=== PATIENT | male | born 1980 | race Caucasian/White ===

== ENCOUNTER 2016-07-13 20:41 | Emergency (ER) | payer OTHER ==
[2016-07-13 20:52] VITALS: RESP 16
[2016-07-13 20:58] VITALS: TEMP 98.5
--- NOTE | 2016-07-13 21:11 | ED ---
General Adult HPI - General Chief complaint: ENT Stated complaint: Cough/Headache/Sore Throat Time Seen by Provider: 07/13/16 20:58 Source: patient, RN notes reviewed Mode of arrival: ambulatory Limitations: no limitations - History of Present Illness Initial comments: 36-year-old male presenting for sore throat. States symptoms began yesterday and persisted through today. He states he has had some chills but denies any fevers. He states he's had a dry cough but no shortness of breath. He does have a history of asthma but this is not flared up at this time. He denies any chest pain. He has not tried any medications. - Related Data Home Medications Medication Instructions Recorded Confirmed Acetaminophen Tab [Tylenol Tab] 650 mg PO Q6H PRN 07/13/16 07/13/16 DULoxetine HCL [Cymbalta] 60 mg PO DAILY 07/13/16 07/13/16 Ibuprofen [Motrin] 200 - 400 mg PO Q6HR PRN 07/13/16 07/13/16 Ondansetron HCl [Zofran] 4 mg PO Q8H PRN 07/13/16 07/13/16 Allergies Allergy/AdvReac Type Severity Reaction Status Date / Time erythromycin base Allergy Dyspnea Verified 07/13/16 21:11 [Erythromycin Base] Penicillins Allergy Dyspnea Verified 07/13/16 21:11 sulfamethoxazole Allergy Dyspnea Verified 07/13/16 21:11 [From Septra] trimethoprim [From Decra] Allergy Dyspnea Verified 07/13/16 21:11 Review of Systems ROS Statement: Those systems with pertinent positive or pertinent negative responses have been documented in the HPI. ROS Other: All systems not noted in ROS Statement are negative. Past Medical History Past Medical History: Asthma Additional Past Medical History / Comment(s): back pain, meningitis 5 months old History of Any Multi-Drug Resistant Organisms: None Reported Past Surgical History: Heart Catheterization, Orthopedic Surgery Additional Past Surgical History / Comment(s): heart cath, left thumb surgery Past Psychological History: ADD/ADHD, Bipolar Smoking Status: Former smoker Past Alcohol Use History: None Reported Past Drug Use History: None Reported General Exam - General Exam Comments Initial Comments: General: Awake and Alert. No acute distress. Does not appear acutely ill. Obese. Eyes: CLYDE, EOM intact. No nystagmus. No scleral icterus. HENT: Atraumatic, normocephalic. Mucous membranes moist. Trachea midline. Posterior pharyngeal erythema and ulceration, no significant exudate. Neck: The neck is supple, there is no tenderness or JVD. Cardiovascular: Regular rate and rhythm. No murmur, rub, or gallop is appreciated. Distal pulses intact. Respiratory: Lungs are clear to auscultation bilaterally. No wheezes, rales, rhonchi. No respiratory distress. Gastrointestinal: Soft, Nontender. No rebound or guarding. Non-distended. No masses or organomegaly noted. No CVA tenderness. Musculoskeletal: No tenderness. Normal ROM. No gross deformity. No strength deficits. Neurological: A&Ox3. CN II-XII grossly intact, There are no obvious motor or sensory deficits. Coordination appears grossly intact. Speech is normal. Skin: Skin is warm and dry and no rashes or lesions are noted. Psychiatric: Cooperative, appropriate mood & affect, normal judgment. Limitations: no limitations Course Vital Signs 07/13/16 20:50 Temperature 98.5 F Pulse Rate 76 Respiratory 16 Rate Blood Pressure 144/64 O2 Sat by Pulse 99 Oximetry Medical Decision Making - Medical Decision Making 36-year-old male presenting for sore throat and URI type symptoms. He does state history of asthma although he has no wheezing or respiratory distress exam requiring prevention at this time. Does have some pharyngeal erythema on exam. Strep was performed and negative. Patient was given a dose of Decadron for symptomatic management. Discussed [id number] medications for further symptomatic management. Recommend follow-up with PCP. Written for work note upon request. Patient otherwise appears stable for discharge at this time. Discussed concerning signs symptoms for immediate return to the ED. Patient and are agreeable with plan and discharge home. - Lab Data Lab Results 07/13/16 Range/Units 21:15 Group A Strep Rapid Negative (Negative) Disposition Clinical Impression: Sore throat Disposition: HOME SELF-CARE Condition: Stable Instructions: Pharyngitis (ED) Referrals: Jim Bella MD [Primary Care Provider] - 1-2 days Time of Disposition: 21:27
[2016-07-13] MEDS ORDERED: DEXAMETHASONE 4 MG TAB PO STA (21:26)
[2016-07-13 21:38] VITALS: BP 113/68; PULSE 79
== END 2016-07-13 21:38 | disposition home or self-care (01) ==
LOC: EC 20:41
DX: J02.9 Acute pharyngitis, unspecified (principal); E66.9 Obesity, unspecified; F90.9 Attention-deficit hyperactivity disorder, unspecified type; F31.9 Bipolar disorder, unspecified; Z87.891 Personal history of nicotine dependence; Z79.899 Other long term (current) drug therapy; Z88.0 Allergy status to penicillin; Z88.1 Allergy status to other antibiotic agents; Z88.2 Allergy status to sulfonamides; Z88.8 Allergy status to other drugs, medicaments and biological substances
CPT/HCPCS: 99283; 87081; 87430; J8540

== ENCOUNTER 2016-10-19 12:10 | Observation (INO) | payer OTHER ==
[2016-10-19] MEDS ORDERED: SODIUM CHLORIDE 0.9% 1,000 ML IV STA (13:00)
[2016-10-19] MEDS ORDERED: ASPIRIN 81 MG CHEW PO STA (13:00)
--- NOTE | 2016-10-19 13:30 | ED ---
Chest Pain HPI - General Chief Complaint: Chest Pain Stated Complaint: Chest Pain Time Seen by Provider: 10/19/16 12:23 Source: patient, RN notes reviewed Mode of arrival: wheelchair Limitations: no limitations - History of Present Illness Initial Comments: Patient is a 36-year-old male presents to the emergency room for evaluation of chest pain. Patient states pain began around 9 AM this morning. Patient states he noticed the pain when he was stacking foam. Patient states the pain is midsternal and radiates to his left arm. Patient states he had symptoms similar to this about 7 years ago. 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 Patient does state he went through a stress test while ago. Patient states he took Aleve this morning with no relief of symptoms. Patient states he is having 8 out of 10 chest pain. Patient states it feels it his 3 daughters are sitting on his chest. Patient does state he feels short of breath. Patient denies nausea or vomiting. Patient denies fevers or chills. Patient denies cough. Patient denies headache or dizziness. - Related Data Home Medications Medication Instructions Recorded Confirmed Acetaminophen Tab [Tylenol Tab] 1,000 mg PO Q6HR PRN 10/19/16 10/19/16 Naproxen Sodium [Aleve] 220 mg PO ONCE 10/19/16 10/19/16 Ranitidine HCl 150 mg PO BID 10/19/16 10/19/16 Allergies Allergy/AdvReac Type Severity Reaction Status Date / Time erythromycin base Allergy Dyspnea Verified 10/19/16 12:31 [Erythromycin Base] Penicillins Allergy Dyspnea Verified 10/19/16 12:31 sulfamethoxazole Allergy Dyspnea Verified 10/19/16 12:31 [From Septra] trimethoprim [From Septra] Allergy Dyspnea Verified 10/19/16 12:31 Review of Systems ROS Statement: Those systems with pertinent positive or pertinent negative responses have been documented in the HPI. ROS Other: All systems not noted in ROS Statement are negative. EKG Findings - EKG Comments: EKG Findings:: Normal sinus rhythm, ventricular rate 67 bpm, WA interval 160 ms , QRS duration 86 ms, QT/QTC 394/416 ms Past Medical History Past Medical History: Asthma Additional Past Medical History / Comment(s): back pain, meningitis 5 months old History of Any Multi-Drug Resistant Organisms: None Reported Past Surgical History: Heart Catheterization, Orthopedic Surgery Additional Past Surgical History / Comment(s): heart cath, left thumb surgery Past Psychological History: ADD/ADHD, Bipolar Smoking Status: Former smoker Past Alcohol Use History: None Reported Past Drug Use History: None Reported General Exam - General Exam Comments Initial Comments: Sitting in exam room, no distress. Limitations: no limitations General appearance: alert, in no apparent distress Head exam: Present: atraumatic, normocephalic, normal inspection Eye exam: Present: normal appearance ENT exam: Present: normal exam Neck exam: Present: normal inspection, full ROM. Absent: tenderness, lymphadenopathy Respiratory exam: Present: normal lung sounds bilaterally, respiratory distress Cardiovascular Exam: Present: regular rate, normal rhythm, normal heart sounds Extremities exam: Present: normal inspection Back exam: Present: normal inspection Neurological exam: Present: alert, oriented X3, CN II-XII intact, normal gait Psychiatric exam: Present: normal affect, normal mood Skin exam: Present: warm, dry, intact, normal color. Absent: rash Course Vital Signs 10/19/16 10/19/16 10/19/16 12:12 12:40 13:19 Temperature 97.8 F 98.4 F 98.3 F Pulse Rate 83 67 67 Respiratory 20 18 16 Rate Blood Pressure 111/72 118/64 113/59 O2 Sat by Pulse 98 96 98 Oximetry 10/19/16 10/19/16 10/19/16 14:22 15:54 17:06 Temperature 98.0 F 98.5 F Pulse Rate 67 62 66 Respiratory 16 16 16 Rate Blood Pressure 107/66 100/62 104/59 O2 Sat by Pulse 97 96 97 Oximetry Chest Pain [facility] Patient is a 36-year-old male presents to the emergency room for evaluation of chest pain. White count slightly elevated. Cardiac enzymes within normal limits. Patient will be admitted here for observation for repeat cardiac enzymes. Case discussed Dr. Lynn, Dr. Lynn discussed case with Dr. Acuna who agreed to admit patient. Disposition Clinical Impression: Chest pain Disposition: ADMITTED IP TO THIS [facility] Condition: Stable Decision Date: 10/19/16
[2016-10-19 13:34] LABS: Basophils # (A) 0.1 k/uL (0-0.2); Basophils % (A) 1 %; CH 29.6; CHCM 34.3; Eosinophils # (A) 4.2 k/uL (0-0.7); Eosinophils % (A) 26 %; HCT 45.1 % (39.0-53.0); HDW 2.42; HGB 16.1 gm/dL (13.0-17.5); Luc # (Auto) 0.27; Luc % (Auto) 2; Lymphocytes # (A) 2.4 k/uL (1.0-4.8); Lymphocytes % (A) 15 %; MCHC 35.8 g/dL (31.0-37.0); MCV 86.6 fL (80.0-100.0); Mean Platelet Volume 7.1; Monocytes # (A) 0.7 k/uL (0-1.0); Monocytes % (A) 4 %; Neutrophils # (A) 8.4 k/uL (1.3-7.7); Neutrophils % (A) 52 %; RDW 13.1 % (11.5-15.5); WBC 16.1 k/uL (3.8-10.6); WBC (Perox) 15.42
[2016-10-19 13:44] LABS: ALT 30 U/L (21-72); AST 26 U/L (17-59); Alkaline Phosphatase 85 U/L (38-126); Anion Gap 7 mmol/L; Blood Urea Nitrogen 18 mg/dL (9-20); Calcium 9.9 mg/dL (8.4-10.2); Carbon Dioxide 25 mmol/L (22-30); Chloride 108 mmol/L (98-107); Glucose 89 mg/dL (74-99); Non-African American GFR(MDRD) >60 (>60 ml/min/1.73 sqM); Potassium 5.1 mmol/L (3.5-5.1); Sodium 140 mmol/L (137-145); Total Bilirubin 0.7 mg/dL (0.2-1.3); Total Protein 7.4 g/dL (6.3-8.2)
[2016-10-19 13:45] LABS: Partial Thromboplastin Time 26.4 sec (22.0-30.0); Prothrombin Time 10.4 sec (9.0-12.0)
[2016-10-19 13:54] LABS: Creatine Kinase 228 U/L (55-170)
--- NOTE | 2016-10-19 13:56 | XR ---
EXAMINATION TYPE: XR chest 2V DATE OF EXAM: 10/19/2016 COMPARISON: 02/14/2016 TECHNIQUE: PA and lateral views submitted. HISTORY: Cough FINDINGS: The lungs are clear and there is no pneumothorax, pleural effusion, or focal pneumonia. Coarsened i nterstitium. IMPRESSION: 1. Coarsened interstitium could be on the basis of poor inspiration rather than bronchitis or interst itial pneumonitis. Correlate clinically.
[2016-10-19 14:08] LABS: Troponin I <0.012 ng/mL (0.000-0.034)
[2016-10-19 14:16] LABS: Manual Review Performed
[2016-10-19 14:17] LABS: RBC Morphology Normal
[2016-10-19 14:20] LABS: Creatine Kinase MB 3.2 ng/mL (0.0-2.4)
[2016-10-19] MEDS ORDERED: ACETAMINOPHEN TAB 325 MG TAB PO PRN (15:28)
[2016-10-19] MEDS ORDERED: NALOXONE 0.4 MG/ML 1 ML VIAL IV PRN (15:28)
[2016-10-19] MEDS ORDERED: ONDANSETRON 4 MG/2 ML VIAL IVP PRN (15:28)
[2016-10-19] MEDS: SODIUM CHLORIDE 0.9% 1,000 ML IV SCH (15:51)
[2016-10-19 18:18] VITALS: BMI 32.5
[2016-10-19] MEDS: MORPHINE SULFATE 4 MG/ML SYRINGE IV PRN ×2 (18:42→22:44)
[2016-10-19 19:47] LABS: Creatine Kinase 183 U/L (55-170)
[2016-10-19 20:00] LABS: Troponin I <0.012 ng/mL (0.000-0.034)
[2016-10-19] MEDS: IBUPROFEN 400 MG TAB PO PRN (20:05)
[2016-10-19] MEDS: FAMOTIDINE 20 MG TAB PO SCH (20:05)
[2016-10-19 20:11] LABS: Creatine Kinase MB 2.8 ng/mL (0.0-2.4)
[2016-10-19] MEDS ORDERED: TEMAZEPAM 15 MG CAP PO PRN (23:11)
[2016-10-19] MEDS ORDERED: ALPRAZolam 0.25 MG TAB PO PRN (23:11)
[2016-10-20] MEDS ORDERED: HYDROcodone/APAP 5-325MG 1 EACH TAB PO PRN (00:21)
[2016-10-20] MEDS ORDERED: LORazepam 1 MG TAB PO PRN (00:21)
[2016-10-20 01:38] LABS: Creatine Kinase 147 U/L (55-170)
[2016-10-20 01:51] LABS: Creatine Kinase MB 2.4 ng/mL (0.0-2.4); Troponin I <0.012 ng/mL (0.000-0.034)
[2016-10-20 03:51] VITALS: RESP 16
[2016-10-20] MEDS: SODIUM CHLORIDE 0.9% 1,000 ML IV SCH (05:46)
[2016-10-20 06:06] LABS: Creatine Kinase 119 U/L (55-170)
[2016-10-20 06:19] LABS: Creatine Kinase MB 1.8 ng/mL (0.0-2.4); Troponin I <0.012 ng/mL (0.000-0.034)
[2016-10-20] MEDS: IBUPROFEN 400 MG TAB PO PRN (06:59)
[2016-10-20] MEDS ORDERED: DOBUTamine DRIP for NUC MED 500 MG in DEXTROSE/WATER 1 250ML.BAG IV ONE (07:17)
[2016-10-20] MEDS ORDERED: PANTOPRAZOLE 40 MG TABLET PO SCH (07:30)
[2016-10-20] MEDS ORDERED: ASPIRIN 81 MG CHEW PO SCH (09:00)
--- NOTE | 2016-10-20 10:38 | ECHOF ---
Referral Reason: MEASUREMENTS -------- HEIGHT: 180.3 cm WEIGHT: 108.9 kg BP: 120/58 IVSd: 1.3 cm (0.6 - 1.1) LVIDd: 4.0 cm (3.9 - 5.3) LVPWd: 1.2 cm (0.6 - 1.1) IVSs: 2.0 cm LVIDs: 2.3 cm LVPWs: 2.1 cm Ao Diam: 3.3 cm (2.0 - 3.7) AV Cusp: 2.4 cm (1.5 - 2.6) LA Diam: 3.3 cm (2.7 - 3.8) MV EXCURSION: 12.842 mm (> 18.000) MV EF SLOPE: 122 mm/s (70 - 150) EPSS: 0.3 cm MV E Maynor: 0.86 m/s MV DecT: 188 ms MV A Maynor: 0.56 m/s MV E/A Ratio: 1.53 RAP: 5.00 mmHg RVSP: 27.07 mmHg FINDINGS -------- Sinus rhythm. This was a technically good study. There is mild concentric left ventricular hypertrophy. Overall left ventricular systolic function is normal with, an EF between 55 - 60 %. The right ventricle is normal in size and function. The left atrium is normal in size. The right atrium is normal in size. The aortic valve is trileaflet, and appears structurally normal. No aortic stenosis or regurgitation. Mild mitral regurgitation is present. Trace tricuspid regurgitation present. The right ventricular systolic pressure, as measured by Doppler, is 27.07mmHg. Pulmonic valve appears structurally normal. The aortic root size is normal. The pericardium is normal. CONCLUSIONS -------- 1. Sinus rhythm. 2. Trace tricuspid regurgitation present. 3. The right ventricular systolic pressure, as measured by Doppler, is 27.07mmHg. 4. Pulmonic valve appears structurally normal. 5. The aortic root size is normal. 6. The pericardium is normal. 7. This was a technically good study. 8. There is mild concentric left ventricular hypertrophy. 9. Overall left ventricular systolic function is normal with, an EF between 55 - 60 %. 10. The right ventricle is normal in size and function. 11. The left atrium is normal in size. 12. The right atrium is normal in size. 13. The aortic valve is trileaflet, and appears structurally normal. No aortic stenosis or regurgitation. 14. Mild mitral regurgitation is present. [employer]: Hansa Adkins RDCS
[2016-10-20 11:30] VITALS: BP 111/66; TEMP 98.7
--- NOTE | 2016-10-20 11:43 | HP ---
DATE OF ADMISSION: DATE OF SERVICE: 10/19/2016 CHIEF COMPLAINT: Chest pain. 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 The pain was felt in the mid part of the chest, which was coming and going with pressure type of sensation. The pain is radiating to left arm and the patient came to [facility] and admitted for further evaluation and treatment. There is no history of fever, rigors, headache, loss of consciousness. The patient also reports significant social stressors with multiple deaths in the family and other medical issues. There is no associated fever, rigors, chills. No history of hematochezia, melena at this time. PAST MEDICAL HISTORY: History of asthma, back pain, spinal meningitis, ADD, ADHD, bipolar, history of cardiac catheterization reported normal elsewhere. Home medications are 1. Ranitidine 150 mg p.o. b.i.d. 2. Tylenol 1000 mg q.6 p.r.n. 3. Aleve 220 mg daily. ALLERGIES: ERYTHROMYCIN, PENICILLIN AND SEPTRA. FAMILY HISTORY: History of heart disease in multiple relatives including grandfather and stepfather. SOCIAL HISTORY: Previous history of smoking. No history of current alcohol or smoking. REVIEW OF SYSTEMS: ENT: No diminishing hearing. No diminished vision. CARDIOVASCULAR: As mentioned earlier. RESPIRATORY: As mentioned earlier. GI: No nausea. : No dysuria. NERVOUS SYSTEM: No numbness or weakness. ALLERGY/IMMUNOLOGY: No asthma or hayfever. MUSCULOSKELETAL: As mentioned earlier. HEMATOLOGY/ONCOLOGY: No history of anemia. ENDOCRINE: No history of diabetes or hypothyroidism. CONSTITUTIONAL: As mentioned earlier. DERMATOLOGY: Negative. RHEUMATOLOGY: Negative. PSYCHIATRY: As mentioned earlier. PHYSICAL EXAMINATION: Patient is alert and oriented x3. Pulse is 72, blood pressure 140/80, respirations 18, temperature 98.1. Pulse ox 95% on room air. HEENT: Conjunctivae normal. NECK: No jugular venous distention. CARDIOVASCULAR: S1 and S2, muffled. RESPIRATORY: Breath sounds diminished at the bases. No rhonchi, no crackles. ABDOMEN: Soft, nontender. No mass palpable. LEGS: No edema, no swelling. NERVOUS SYSTEM: Higher function as mentioned. Moves all four limbs. No focal motor deficits. LYMPHATIC: No lymphadenopathy in the neck, axillae or groin. SKIN: No ulcer, rash or bleeding. JOINTS: No active deforming arthropathy. LABS: WBC 16.1, chloride 108, creatine kinase 228. Troponins are negative. ASSESSMENT: 1. Chest pain, possible unstable angina. 2. Increased WBC of undetermined origin. 3. Increased creatine kinase with normal troponins. 4. History of asthma. 5. History of back pain. 6. History of spinal meningitis since 5 months. 7. History of cardiac catheterization, normal. 8. History of attention deficit disorder, attention deficit hyperactivity disorder. 9. History of bipolar. 10. Remote history of nicotine dependence. RECOMMENDATIONS AND DISCUSSION: In this 36-year-old gentleman who presented with multiple complex medical issues, we will monitor the patient closely. Continue the current medication and symptomatic treatment. continue unstable angina protocol. Otherwise cardiology consultation. N.p.o. past midnight. Other than that I would also recommend repeat labs in the morning. Symptomatic treatment provided. Guarded prognosis because of multiple complex medical issues. Further recommendations to follow.
[2016-10-20 12:11] VITALS: PULSE 48
[2016-10-20] MEDS: FAMOTIDINE 20 MG TAB PO SCH (12:30)
--- NOTE | 2016-10-20 12:42 | CONS ---
DATE OF CONSULTATION: ATTENDING: Dr. Bella Mr. Paredes is a 36-year-old male who presented with symptoms of chest discomfort. Patient underwent cardiac catheterization according to him about 7 years ago at [facility] and was told that there is no obstructive disease. There was a questionable segmental wall motion biopsy, although I am not clear about that. Yesterday, after having coffee, he had substernal chest discomfort that persisted for a few hours until he came into the emergency room. At time of my evaluation, he is pain free. Patient is average in his exercise tolerance. He denies any symptoms of exertional chest discomfort. He has dyspnea related to his bronchial asthma. He denies any dizziness or palpitation. Yesterday, he felt more dyspneic. He has history of diaphoresis on a regular basis. He has no PND, orthopnea, or peripheral edema. His coronary risk factors are negative for diabetes, hyperlipidemia, or smoking. He was on blood pressure medication in the past that was stopped and it appears that it was started because of arrhythmia but details are not available. REVIEW OF SYSTEMS: RESPIRATORY SYSTEM: He has history of bronchial asthma. No recent wheezing, cough. GI SYSTEM: No recent GI bleeding. No peptic ulcer disease. SYSTEM: Prior history of nephrolithiasis. NERVOUS SYSTEM: Remote history of seizure. PHYSICAL EXAMINATION: A 36-year-old male, alert, oriented, in no apparent distress. Blood pressure 114/80 with a heart in the 70s. HEAD: Normocephalic. EYES: Sclerae anicteric. NECK: Good upstroke. No bruit. No jugular venous distention. LUNGS: Clear to auscultation. HEART: Regular rate and rhythm. S1, S2, no S3, no S4, no murmur or rub. Chest wall with mild chest wall tenderness. ABDOMEN: Soft, obese, nontender, positive bowel sounds. No organomegaly. EXTREMITIES: No edema. Intact distal pulses. Lab data revealed a d-dimer of less than 0.17. Hemoglobin of 16.1. Troponin less than 0.012 for 4 samples. BUN and creatinine 18 and 0.88. Potassium 5.1. EKG revealed sinus mechanism, normal axis and intervals, no acute changes. A chest x-ray revealed no clear infiltrate. IMPRESSION: 1. Chest discomfort, has atypical feature for ischemic heart disease, probable noncardiac. 2. Prior history of bronchial asthma. RECOMMENDATIONS: From the cardiac standpoint, I will recommend to proceed with stress dobutamine echo and depending on those findings, further recommendation will be made. Thank you for this consult. We will follow with you.
--- NOTE | 2016-10-20 13:07 | ECHOS ---
DATE OF SERVICE: 10/20/2016 AGE: 36Y SEX: M HT: 72" WT: 240 lbs. Protocol Henry: Others: Stage: Dur. of Exercise: 8:30 minutes *Heart Rate Blood Pressure *Rest: 48 Rest: 139/60 * *Max. Achieved: 160 Maximum BP: 182/71 85% PMHR: 156 100% PMHR: 183 *METS: INDICATIONS: Chest pain. MEDICATIONS: See list. Patient was given dobutamine infusion according to the standard protocol. Peak heart rate of 160 was achieved. Maximum blood pressure of 169/72 millimeters of mercury was noted. Resting EKG shows normal sinus rhythm with normal FL interval and QRS duration and normal ST-T waves. With Dobutamine infusion, occasional PVCs and ventricular couplets and one episode of nonsustained ventricular tachycardia was noted without associated with any symptoms. Baseline echocardiographic images reveals a normal left ventricular chamber size with normal left ventricular systolic function. At the peak dose of dobutamine infusion, normal increase in the wall thickness and contractility is noted. FINAL IMPRESSION: 1. This dobutamine stress echocardiographic study is negative for stress-induced ischemia. 2. EKG portion of the stress test is not suggestive of ischemia. 3. Occasional PVCs and one episode of nonsustained ventricular tachycardia was noted due to dobutamine.
--- NOTE | 2016-10-21 10:27 | DS ---
DATE OF ADMISSION: 10/19/2016 DATE OF DISCHARGE: 10/20/2016 FINAL DIAGNOSES: 1. Chest pain, possible musculoskeletal with negative stress echo. 2. Increased WBC of undetermined etiology. 3. Increased creatinine kinase, normal Troponins. 4. History of asthma. 5. History of back pain. 6. History of spinal meningitis at the age of 5 months. 7. History of cardiac catheterization, normal previously. 8. History of attention deficit disorder/attention deficit hyperactivity disorder. 9. History of bipolar. 10. Remote history of nicotine dependence. DISCHARGE DISPOSITION: The patient will be discharged in stable condition with guarded prognosis. HISTORY OF PRESENT ILLNESS: This 36 -year-old gentleman with a past medical history of multiple medical problems as mentioned earlier presented with chest pain, myocardial infarction ruled out. Cardiology saw the patient. Stress test was done, which showed occasional PVCs but dobutamine stress echo was negative for any stress-induced ischemia. Cardiology cleared the patient for discharged. A 2-D echo was also done, which showed ejection fraction about 55 to 60%. On exam, vital signs stable. Abdomen soft. CARDIOVASCULAR: S1, S2. Central nervous system: No focal deficits. DISCHARGE ADVICE AND MEDICATIONS: 1. Diet is cardiac. 2. Activity limited until follow-up. 3. Follow up with primary physician in 2 to 3 days. 4. Follow-up with Dr. Banerjee in one week. MEDICATIONS: 1. Tylenol 1000 mg q.6 p.r.n. 2. Ativan 0.5 mg p.o. t.i.d. p.r.n. 3. Ranitidine 150 mg p.o. b.i.d. Once again, the patient will be discharged in stable condition with guarded prognosis.
== END 2016-10-20 15:15 | disposition home or self-care (01) ==
LOC: EC 12:10 → 3OBS 15:27
PROVIDERS: ADMIT Hospitalist; ATTEND Hospitalist
DX: R07.9 Chest pain, unspecified (principal); J45.909 Unspecified asthma, uncomplicated; M54.9 Dorsalgia, unspecified; Z86.61 Personal history of infections of the central nervous system; F90.9 Attention-deficit hyperactivity disorder, unspecified type; Z88.1 Allergy status to other antibiotic agents; Z88.0 Allergy status to penicillin; Z88.2 Allergy status to sulfonamides; Z88.8 Allergy status to other drugs, medicaments and biological substances; Z87.891 Personal history of nicotine dependence; Z82.49 Family history of ischemic heart disease and other diseases of the circulatory system
CPT/HCPCS: 96361 ×4; 99285 ×2; 96365; 96366; 36415; 93005; 93017; 93306; 93350; 85379; 83880; 80053; 82550 ×2; 82553 ×2; 83735; 84484 ×2; 85025; 85610; 85730; 71020; G0378 ×2; J1250; J2270

== ENCOUNTER 2017-02-13 06:46 | Emergency (ER) | payer OTHER ==
[2017-02-13 06:51] VITALS: TEMP 98.3
[2017-02-13] MEDS ORDERED: SODIUM CHLORIDE 0.9% 1,000 ML IV STA ×2 (07:19)
[2017-02-13] MEDS ORDERED: KETOROLAC 30 MG/ML 1 ML VIAL IVP STA ×2 (07:19→11:34)
--- NOTE | 2017-02-13 07:22 | ED ---
General Adult HPI - General Chief complaint: Abdominal Pain Stated complaint: kidney stone Time Seen by Provider: 02/13/17 07:13 Source: patient, family, RN notes reviewed, old records reviewed Mode of arrival: ambulatory Limitations: no limitations - History of Present Illness Initial comments: 36-year-old male presents with right flank pain and bowel pain. Dull aching pain. Severe nature. Patient states the pain does travel in his penis. Denies dysuria. States he has had decreased urine output and difficulty urinating, as well as dysuria. Denies any concern for STDs. Last bowel movement was this morning, mild diarrhea. No blood. Pain has been constant over 2 days, worsening. No vomiting or nausea. No fever. No chest pain or shortness of breath. Past medical history of renal stones. - Related Data Home Medications Medication Instructions Recorded Confirmed Acetaminophen Tab [Tylenol] 1,000 mg PO Q6HR PRN 10/19/16 02/13/17 Ranitidine HCl 150 mg PO BID PRN 10/19/16 02/13/17 Previous Rx's Medication Instructions Recorded Ibuprofen [Motrin] 600 mg PO Q8HR PRN #24 tab 02/13/17 Allergies Allergy/AdvReac Type Severity Reaction Status Date / Time erythromycin base Allergy Dyspnea Verified 02/13/17 08:09 [Erythromycin Base] Penicillins Allergy Dyspnea Verified 02/13/17 08:09 sulfamethoxazole Allergy Dyspnea Verified 02/13/17 08:09 [From Septra] trimethoprim [From Septra] Allergy Dyspnea Verified 02/13/17 08:09 Review of Systems ROS Statement: Those systems with pertinent positive or pertinent negative responses have been documented in the HPI. ROS Other: All systems not noted in ROS Statement are negative. Past Medical History Past Medical History: Asthma Additional Past Medical History / Comment(s): back pain, meningitis as History of Any Multi-Drug Resistant Organisms: None Reported Past Surgical History: Heart Catheterization, Orthopedic Surgery Additional Past Surgical History / Comment(s): heart cath no stents, left thumb surgery Past Psychological History: ADD/ADHD, Bipolar Smoking Status: Former smoker Past Alcohol Use History: None Reported Past Drug Use History: None Reported General Exam Limitations: no limitations General appearance: alert, in no apparent distress Head exam: Present: atraumatic, normocephalic Eye exam: Present: normal appearance, PERRL ENT exam: Present: normal exam Neck exam: Present: normal inspection Respiratory exam: Present: normal lung sounds bilaterally. Absent: respiratory distress Cardiovascular Exam: Present: regular rate, normal rhythm GI/Abdominal exam: Present: soft, tenderness (Mild right lower quadrant tenderness to palpation). Absent: distended, guarding, rebound exam: Present: normal inspection. Absent: testicular tenderness, scrotal swelling Extremities exam: Present: normal inspection, normal capillary refill. Absent: pedal edema Back exam: Present: normal inspection, CVA tenderness (R) Neurological exam: Present: alert, oriented X3. Absent: motor sensory deficit Psychiatric exam: Present: normal affect, normal mood Skin exam: Present: warm, dry, intact. Absent: cyanosis, diaphoretic Course Vital Signs 02/13/17 06:47 Temperature 98.3 F Pulse Rate 80 Respiratory 78 H Rate Blood Pressure 136/70 O2 Sat by Pulse 99 Oximetry - Reevaluation(s) Reevaluation #1: 02/13/17 08:44 On reevaluation, patient is feeling much better. Medical Decision Making - Medical Decision Making 36-year-old male presenting with difficulty urination, flank pain. CT is obtained, does show nonobstructing stone in the right pelvic kidney, as well as a stone in the distal urethra. Patient has distal meatal stricture. Case is discussed with urology Dr. Vasquez, he was able to evaluate the patient in the emergency department. Stone was removed. Patient is instructed to follow-up with urology in the next 2 weeks. Diagnosis: Distal urethral renal stone, urethral stricture. - Lab Data Result diagrams: 02/13/17 07:29 02/13/17 07:29 Lab Results 02/13/17 02/13/17 02/13/17 Range/Units 07:29 07:29 07:29 WBC 9.1 (3.8-10.6) k/uL RBC 5.31 (4.30-5.90) m/uL Hgb 15.7 (13.0-17.5) gm/dL Hct 47.6 (39.0-53.0) % MCV 89.6 (80.0-100.0) fL MCH 29.5 (25.0-35.0) pg MCHC 32.9 (31.0-37.0) g/dL RDW 12.7 (11.5-15.5) % Plt Count 242 (150-450) k/uL Neutrophils % 53 % Lymphocytes % 26 % Monocytes % 8 % Eosinophils % 9 % Basophils % 1 % Neutrophils # 4.9 (1.3-7.7) k/uL Lymphocytes # 2.4 (1.0-4.8) k/uL Monocytes # 0.7 (0-1.0) k/uL Eosinophils # 0.8 H (0-0.7) k/uL Basophils # 0.1 (0-0.2) k/uL Sodium 140 (137-145) mmol/L Potassium 4.4 (3.5-5.1) mmol/L Chloride 108 H (98-107) mmol/L Carbon Dioxide 22 (22-30) mmol/L Anion Gap 10 mmol/L BUN 16 (9-20) mg/dL Creatinine 0.82 (0.66-1.25) mg/dL Est GFR (MDRD) Af Amer >60 (>60 ml/min/1.73 sqM) Est GFR (MDRD) Non-Af >60 (>60 ml/min/1.73 sqM) Glucose 108 H (74-99) mg/dL Plasma Lactic Acid Louis 0.9 (0.7-2.0) mmol/L Calcium 9.3 (8.4-10.2) mg/dL Total Bilirubin 0.3 (0.2-1.3) mg/dL AST 29 (17-59) U/L ALT 31 (21-72) U/L Alkaline Phosphatase 75 (38-126) U/L Total Protein 6.8 (6.3-8.2) g/dL Albumin 3.9 (3.5-5.0) g/dL Amylase 40 (30-110) U/L Lipase 108 (23-300) U/L Urine Color Urine Appearance (Clear) Urine pH (5.0-8.0) Ur Specific [place] (1.001-1.035) Urine Protein (Negative) Urine Glucose (UA) (Negative) Urine Ketones (Negative) Urine Blood (Negative) Urine Nitrite (Negative) Urine Bilirubin (Negative) Urine Urobilinogen (<2.0) mg/dL Ur Leukocyte Esterase (Negative) Urine RBC (0-5) /hpf Urine WBC (0-5) /hpf Ur Squamous Epith Cells (0-4) /hpf Urine Mucus (None) /hpf 02/13/17 Range/Units 07:35 WBC (3.8-10.6) k/uL RBC (4.30-5.90) m/uL Hgb (13.0-17.5) gm/dL Hct (39.0-53.0) % MCV (80.0-100.0) fL MCH (25.0-35.0) pg MCHC (31.0-37.0) g/dL RDW (11.5-15.5) % Plt Count (150-450) k/uL Neutrophils % % Lymphocytes % % Monocytes % % Eosinophils % % Basophils % % Neutrophils # (1.3-7.7) k/uL Lymphocytes # (1.0-4.8) k/uL Monocytes # (0-1.0) k/uL Eosinophils # (0-0.7) k/uL Basophils # (0-0.2) k/uL Sodium (137-145) mmol/L Potassium (3.5-5.1) mmol/L Chloride (98-107) mmol/L Carbon Dioxide (22-30) mmol/L Anion Gap mmol/L BUN (9-20) mg/dL Creatinine (0.66-1.25) mg/dL Est GFR (MDRD) Af Amer (>60 ml/min/1.73 sqM) Est GFR (MDRD) Non-Af (>60 ml/min/1.73 sqM) Glucose (74-99) mg/dL Plasma Lactic Acid Louis (0.7-2.0) mmol/L Calcium (8.4-10.2) mg/dL Total Bilirubin (0.2-1.3) mg/dL AST (17-59) U/L ALT (21-72) U/L Alkaline Phosphatase (38-126) U/L Total Protein (6.3-8.2) g/dL Albumin (3.5-5.0) g/dL Amylase (30-110) U/L Lipase (23-300) U/L Urine Color Yellow Urine Appearance Clear (Clear) Urine pH 7.0 (5.0-8.0) Ur Specific [place] 1.014 (1.001-1.035) Urine Protein Negative (Negative) Urine Glucose (UA) Negative (Negative) Urine Ketones Negative (Negative) Urine Blood Negative (Negative) Urine Nitrite Negative (Negative) Urine Bilirubin Negative (Negative) Urine Urobilinogen <2.0 (<2.0) mg/dL Ur Leukocyte Esterase Small H (Negative) Urine RBC 2 (0-5) /hpf Urine WBC 6 H (0-5) /hpf Ur Squamous Epith Cells <1 (0-4) /hpf Urine Mucus Rare H (None) /hpf Disposition Clinical Impression: Urethral stricture, Renal stone Disposition: HOME SELF-CARE Condition: Good Instructions: Kidney Stones (ED) Additional Instructions: Please follow-up with Dr. Vasquez in 2 weeks Prescriptions: Ibuprofen [Motrin] 600 mg PO Q8HR PRN #24 tab PRN Reason: Pain Referrals: Jim Bella MD [Primary Care Provider] - 1-2 days Portillo Vasquez MD [STAFF PHYSICIAN] - 1-2 days Time of Disposition: 13:02
[2017-02-13 07:42] LABS: Basophils # (A) 0.1 k/uL (0-0.2); Basophils % (A) 1 %; CH 29.6; CHCM 33.2; Eosinophils # (A) 0.8 k/uL (0-0.7); Eosinophils % (A) 9 %; HCT 47.6 % (39.0-53.0); HDW 2.33; HGB 15.7 gm/dL (13.0-17.5); Luc # (Auto) 0.26; Luc % (Auto) 3; Lymphocytes # (A) 2.4 k/uL (1.0-4.8); Lymphocytes % (A) 26 %; MCH 29.5 pg (25.0-35.0); MCHC 32.9 g/dL (31.0-37.0); MCV 89.6 fL (80.0-100.0); Monocytes # (A) 0.7 k/uL (0-1.0); Monocytes % (A) 8 %; Neutrophils # (A) 4.9 k/uL (1.3-7.7); Neutrophils % (A) 53 %; RBC 5.31 m/uL (4.30-5.90); RDW 12.7 % (11.5-15.5); WBC 9.1 k/uL (3.8-10.6); WBC (Perox) 8.32
[2017-02-13 07:51] LABS: Appearance,Urine Clear (Clear); Bilirubin,Urine Negative (Negative); Glucose,Urine (UA) Negative (Negative); Ketones,Urine Negative (Negative); Leukocyte Esterase,Urine Small (Negative); Mucus,Urine Rare /hpf; Nitrite,Urine Negative (Negative); Particle Count 2659; Protein,Urine Negative (Negative); RBC,Urine 2 /hpf (0-5); Specific Gravity,Urine 1.014 (1.001-1.035); Squamous Epithelial Cell,Urine <1 /hpf (0-4); UA Billing (MACRO vs. MICRO) MICRO; Urobilinogen,Urine <2.0 mg/dL (<2.0); WBC,Urine 6 /hpf (0-5)
[2017-02-13 07:55] LABS: ALT 31 U/L (21-72); AST 29 U/L (17-59); Alkaline Phosphatase 75 U/L (38-126); Amylase 40 U/L (30-110); Anion Gap 10 mmol/L; Blood Urea Nitrogen 16 mg/dL (9-20); Calcium 9.3 mg/dL (8.4-10.2); Carbon Dioxide 22 mmol/L (22-30); Chloride 108 mmol/L (98-107); Glucose 108 mg/dL (74-99); Non-African American GFR(MDRD) >60 (>60 ml/min/1.73 sqM); Potassium 4.4 mmol/L (3.5-5.1); Sodium 140 mmol/L (137-145); Total Bilirubin 0.3 mg/dL (0.2-1.3); Total Protein 6.8 g/dL (6.3-8.2)
--- NOTE | 2017-02-13 08:14 | CT ---
EXAMINATION TYPE: CT abdomen pelvis wo con DATE OF EXAM: 02/13/2017 COMPARISON: CT thorax dated 04/25/[address] abdomen pelvis dated 06/14/2014 HISTORY: Right flank pain CT DLP: 789 mGycm Automated exposure control for dose reduction was used. TECHNIQUE: Helical acquisition of images was performed from the lung bases through the pelvis. FINDINGS: Lack of intravenous and oral contrast limits evaluation of both the hollow and solid viscer a. LUNG BASES: A 4 mm noncalcified right middle pulmonary nodule is stable dating back to 04/25/2013 and should be considered benign. Minimal bibasilar subsegmental dependent atelectasis is present LIVER/GB: The liver has a normal unenhanced morphology. No evidence of hepatic steatosis on the curre nt exam as suggested on a prior exam. Gallbladder is contracted. PANCREAS: Unremarkable unenhanced morphology with no ductal dilatation. SPLEEN: Small splenule is seen adjacent to the solomon spleen. Spleen is nonenlarged.. ADRENALS: Adrenal glands are within normal limits, symmetric bilaterally maintaining their normal adr eniform shape. KIDNEYS: 3 mm nonobstructing right upper pole renal calculus is present. No nephrolithiasis is seen o n the left. No hydronephrosis of either collecting system. No ureteral calculi are seen. No obstructi ve uropathy. No perinephric fat stranding. Urinary bladder is incompletely distended but unremarkable with small urachal remnant present. FREE AIR: No free air is visualized ADENOPATHY: No greater than 1 cm lymph nodes are seen within the abdomen or pelvis. OSSEOUS STRUCTURES: Osseous structures are intact. BOWEL: Appendix is within normal limits of size, retrocecal, and partially air-filled measuring up t o 4 mm. Few scattered diverticula are present within the sigmoid colon without pericolonic fat strand ing. Mild pericolonic fat stranding is seen in the ascending colon without thickening of the lateral conal fascia or bowel wall thickening. No pneumatosis is seen. IMPRESSION: 1. MILD PERICOLONIC FAT STRANDING IN THE ASCENDING COLON SUGGESTIVE OF MILD UNCOMPLICATED COLITIS. 2. NONOBSTRUCTING RIGHT UPPER POLE 3 MM RENAL CALCULUS. NO EVIDENCE OF OBSTRUCTIVE UROPATHY. 3. SIGMOID DIVERTICULOSIS WITHOUT EVIDENCE OF DIVERTICULITIS.
[2017-02-13] MEDS: MORPHINE SULFATE 2 MG/ML SYRINGE IVP STA ×2 (09:15→09:16)
[2017-02-13] MEDS ORDERED: HYDROcodone/APAP 5-325MG 1 EACH TAB PO STA (09:18)
[2017-02-13] MEDS ORDERED: LIDOCAINE URO-JET JELLY 2% 5 ML KIT URETHRAL ONE (09:50)
[2017-02-13] MEDS ORDERED: HYDROmorphone 1 MG/ML 1 ML SYRINGE IVP STA (12:33)
[2017-02-13 13:13] VITALS: BP 119/62; PULSE 55; RESP 17
--- NOTE | 2017-02-13 19:48 | P.PCN ---
Date of Procedure: 02/13/17 Preoperative Diagnosis: Meatal stenosis, urethral calculus Postoperative Diagnosis: Same Procedure(s) Performed: Meatotomy with removal of urethral calculus Anesthesia: local Surgeon: Portillo Vasquez Estimated Blood Loss (ml): 0 Pathology: other (Urethral calculus, sent for chemical analysis) Condition: stable Disposition: PACU Indications for Procedure: The patient is a 36-year-old white male with a history of urolithiasis. He presents with difficulty voiding, and has been diagnosed with a urethral calculus impacted at the fossa navicularis. On examination, there is evidence of meatal stenosis. Operative Findings: Meatal stenosis. Urethral calculus. Description of Procedure: The patient is lying supine. The external genitalia was prepped and draped sterilely. 2% lidocaine was injected within the ventral aspect of the urethral meatus. Tenotomy scissors then used to incise the ventral aspect of the urethral meatus in the midline. This results in a meatus of normal caliber. It is then possible to pass a hemostat into the urethra and grasp the urethral calculus, which was then removed. The patient tolerated the procedure well.
--- NOTE | 2017-02-13 19:52 | P.GSCN ---
History of Present Illness Consult date: 02/13/17 Reason for Consult: Urethral Calculus Requesting physician: Vickey Blackburn History of present illness: The patient is a 36-year-old white male with a history of urolithiasis. He has undergone ESWL on at least 1 occasion in the past. He has recently experienced hematuria and right flank discomfort. For the past 2 weeks, he has experienced dysuria and a diminished urinary stream. He presented to the emergency room. A computed tomography scan has identified a calculus within the urethra at the level of the fossa navicularis. Review of Systems - Constitutional Denies chills, Denies fever - Gastrointestinal Denies nausea, Denies vomiting - Genitourinary Reports dysuria, Reports hematuria Past Medical History Past Medical History: Asthma Additional Past Medical History / Comment(s): back pain, meningitis as infant History of Any Multi-Drug Resistant Organisms: None Reported Past Surgical History: Heart Catheterization, Orthopedic Surgery Additional Past Surgical History / Comment(s): heart cath no stents, left thumb surgery, ESWL Past Psychological History: ADD/ADHD, Bipolar Smoking Status: Former smoker Past Alcohol Use History: None Reported Past Drug Use History: None Reported Medications and Allergies Home Medications Medication Instructions Recorded Confirmed Type Acetaminophen Tab [Tylenol] 1,000 mg PO Q6HR PRN 10/19/16 02/13/17 History Ranitidine HCl 150 mg PO BID PRN 10/19/16 02/13/17 History Ibuprofen [Motrin] 600 mg PO Q8HR PRN #24 tab 02/13/17 Rx Allergies Allergy/AdvReac Type Severity Reaction Status Date / Time erythromycin base Allergy Dyspnea Verified 02/13/17 08:09 [Erythromycin Base] Penicillins Allergy Dyspnea Verified 02/13/17 08:09 sulfamethoxazole Allergy Dyspnea Verified 02/13/17 08:09 [From Septra] trimethoprim [From Septra] Allergy Dyspnea Verified 02/13/17 08:09 Surgical - Exam Vital Signs Temp Pulse Resp BP Pulse Ox 98.3 F 80 78 H 136/70 99 02/13/17 06:47 02/13/17 06:47 02/13/17 06:47 02/13/17 06:47 02/13/17 06:47 - General well developed, well nourished, no distress - Abdomen Abdomen: soft, non tender, no guarding, no rigid, no rebound - Genitourinary testicles present, other (The penis is circumcised. A calculus is palpable within the urethra at the level of the fossa navicularis. The urethral meatus is small in caliber.) - Psychiatric oriented to time, oriented to person, oriented to place, speech is normal, memory intact Results - Labs 02/13/17 07:29 02/13/17 07:29 Abnormal Lab Results - Last 24 Hours (Table) 02/13/17 02/13/17 02/13/17 Range/Units 07:29 07:29 07:35 Eosinophils # 0.8 H (0-0.7) k/uL Chloride 108 H (98-107) mmol/L Glucose 108 H (74-99) mg/dL Ur Leukocyte Esterase Small H (Negative) Urine WBC 6 H (0-5) /hpf Urine Mucus Rare H (None) /hpf Microbiology - Last 24 Hours (Table) 02/13/17 07:35 Urine Culture - Preliminary Urine,Clean Catch Diabetes panel 02/13/17 Range/Units 07:29 Sodium 140 (137-145) mmol/L Potassium 4.4 (3.5-5.1) mmol/L Chloride 108 H (98-107) mmol/L Carbon Dioxide 22 (22-30) mmol/L BUN 16 (9-20) mg/dL Creatinine 0.82 (0.66-1.25) mg/dL Glucose 108 H (74-99) mg/dL Calcium 9.3 (8.4-10.2) mg/dL AST 29 (17-59) U/L ALT 31 (21-72) U/L Alkaline Phosphatase 75 (38-126) U/L Total Protein 6.8 (6.3-8.2) g/dL Albumin 3.9 (3.5-5.0) g/dL Calcium panel 02/13/17 Range/Units 07:29 Calcium 9.3 (8.4-10.2) mg/dL Albumin 3.9 (3.5-5.0) g/dL Pituitary panel 02/13/17 Range/Units 07:29 Sodium 140 (137-145) mmol/L Potassium 4.4 (3.5-5.1) mmol/L Chloride 108 H (98-107) mmol/L Carbon Dioxide 22 (22-30) mmol/L BUN 16 (9-20) mg/dL Creatinine 0.82 (0.66-1.25) mg/dL Glucose 108 H (74-99) mg/dL Calcium 9.3 (8.4-10.2) mg/dL Adrenal panel 02/13/17 Range/Units 07:29 Sodium 140 (137-145) mmol/L Potassium 4.4 (3.5-5.1) mmol/L Chloride 108 H (98-107) mmol/L Carbon Dioxide 22 (22-30) mmol/L BUN 16 (9-20) mg/dL Creatinine 0.82 (0.66-1.25) mg/dL Glucose 108 H (74-99) mg/dL Calcium 9.3 (8.4-10.2) mg/dL Total Bilirubin 0.3 (0.2-1.3) mg/dL AST 29 (17-59) U/L ALT 31 (21-72) U/L Alkaline Phosphatase 75 (38-126) U/L Total Protein 6.8 (6.3-8.2) g/dL Albumin 3.9 (3.5-5.0) g/dL - Imaging CT scan - abdomen: report reviewed, image reviewed Assessment and Plan (1) Urethral calculus Status: Acute Code(s): N21.1 - CALCULUS IN URETHRA SNOMED Code(s): 19850894 (2) Meatal stenosis Status: Acute Code(s): N35.9 - URETHRAL STRICTURE, UNSPECIFIED SNOMED Code(s ): 009861449 Plan: A meatotomy was performed, and the urethral calculus was successfully removed. The removed calculus was saved and sent for chemical analysis. The patient tolerated the procedure well and will follow-up with me as an outpatient in 2 weeks. Time with Patient: Greater than 30
== END 2017-02-13 13:13 | disposition home or self-care (01) ==
LOC: EC 06:46
DX: N20.0 Calculus of kidney (principal); N35.9 Urethral stricture, unspecified; Z87.891 Personal history of nicotine dependence; Z88.0 Allergy status to penicillin; Z88.1 Allergy status to other antibiotic agents; Z88.2 Allergy status to sulfonamides; Z53.20 Procedure and treatment not carried out because of patient's decision for unspecified reasons
CPT/HCPCS: 99285; 53020; 96374; 96375; 96376; 96361; 36415; 80053; 82150; 83605; 83690; 85025; 81001; 82365; 87086; 74176; J1885; J1170

== ENCOUNTER 2017-12-14 12:00 | Emergency (ER) | payer OTHER ==
[2017-12-14 12:12] VITALS: RESP 18
--- NOTE | 2017-12-14 12:37 | ED ---
General Adult HPI - General Chief complaint: Extremity Problem,Nontraumatic Stated complaint: CHEST PAIN, LEFT ARM NUMBNESS Time Seen by Provider: 12/14/17 12:25 Source: patient, RN notes reviewed Mode of arrival: ambulatory Limitations: no limitations - History of Present Illness Initial comments: Patient is a 37-year-old male presenting to the emergency room today with a chief complaint of left shoulder pain with some radiation to the chest wall. He does not that he's had symptoms similar to this off and on over the last 8 years. He does admit that he did see a solar electric practitioner had a heart cath done approximately 8 years ago was negative. Patient states that a few weeks ago he believes he aggravated the area when the gas can fell out of the truck and he reacted quickly to gravid. Also admits that last night he picked up his 4-year- old son. He states he's having pain to the left shoulder left chest wall last for a few minutes at a time. He describes it as a numbness and tingling sensation. States that at times worse with movements. Was at work earlier today was sent home because of this numbness and tingling and pain. Patient denies any other complaints or symptoms. Patient denies any recent fever, chills , shortness of breath, back pain, abdominal pain, nausea or vomiting, numbness or tingling, dysuria or hematuria, constipation or diarrhea, headaches or visual changes, or any other complaints. - Related Data Home Medications Medication Instructions Recorded Confirmed Ibuprofen [Motrin Ib] 400 mg PO Q6H PRN 12/14/17 12/14/17 Previous Rx's Medication Instructions Recorded Ibuprofen [Motrin] 600 mg PO Q6HR PRN #30 day 12/14/17 Allergies Allergy/AdvReac Type Severity Reaction Status Date / Time erythromycin base Allergy Dyspnea Verified 12/14/17 12:56 [Erythromycin Base] Penicillins Allergy Dyspnea Verified 12/14/17 12:56 sulfamethoxazole Allergy Dyspnea Verified 12/14/17 12:56 [From Septra] trimethoprim [From ] Allergy Dyspnea Verified 12/14/17 12:56 Review of Systems ROS Statement: Those systems with pertinent positive or pertinent negative responses have been documented in the HPI. ROS Other: All systems not noted in ROS Statement are negative. Past Medical History Past Medical History: Asthma Additional Past Medical History / Comment(s): back pain, meningitis as History of Any Multi-Drug Resistant Organisms: None Reported Past Surgical History: Heart Catheterization, Orthopedic Surgery Additional Past Surgical History / Comment(s): heart cath no stents, left thumb surgery, ESWL Past Psychological History: ADD/ADHD, Bipolar Smoking Status: Former smoker Past Alcohol Use History: None Reported Past Drug Use History: None Reported General Exam - General Exam Comments Initial Comments: General: The patient is awake and alert, in no distress, and does not appear acutely ill. Eye: Pupils are equal, round and reactive to light, extra-ocular movements are intact. No nystagmus. There is normal conjunctiva bilaterally. No signs of icterus. Ears, nose, mouth and throat: There are moist mucous membranes and no oral lesions. Neck: The neck is supple, there is no tenderness or JVD. Cardiovascular: There is a regular rate and rhythm. No murmur, rub or gallop is appreciated. Respiratory: Lungs are clear to auscultation, respirations are non-labored, breath sounds are equal. No wheezes, stridor, rales, or rhonchi. Musculoskeletal: Normal ROM. Patient has normal appearance of the cervical spine no tenderness midline. No step-off deformity. Patient tender over the anterior left side of the chest wall and anterior left shoulder. Strength 5/5. Sensation intact. Pulses equal bilaterally 2+. Neurological: A&O x 3. CN II-XII intact, There are no obvious motor or sensory deficits. Coordination appears grossly intact. Speech is normal. Skin: Skin is warm and dry and no rashes or lesions are noted. Psychiatric: Cooperative, appropriate mood & affect, normal judgment. Limitations: no limitations Course Vital Signs 12/14/17 12:07 Temperature 98.1 F Pulse Rate 56 L Respiratory 18 Rate Blood Pressure 124/78 O2 Sat by Pulse 97 Oximetry EKG Findings - EKG Comments: EKG Findings:: EKG performed 1219: Shows normal sinus rhythm at 60 bpm. MS interval 162. QRS 80. QT/QTc 416/416. No ST acute changes. Medical Decision Making - Medical Decision Making Patient reexamined at this time shows no signs of distress. Patient resting comfortably. Does admit to improvement after Toradol here in emergency room. Patient's pain is reproducible on palpation to the anterior chest wall and anterior left shoulder. Patient mitts that his had similar symptoms in the past and on and off over the last 8 years. He denies anything specifically different about this. Previous. He was at work earlier today was sent home because he was having numbness tingling going down onto the hand. Patient's EKG showing no acute changes. His blood work has been reviewed and is negative. Patient will be discharged home to follow-up with the family physician. He is advised continue anti-inflammatories. Advised return if any symptoms increase or worsen. - Lab Data Result diagrams: 12/14/17 13:07 12/14/17 13:07 Lab Results 12/14/17 12/14/17 12/14/17 Range/Units 13:07 13:07 13:07 WBC 9.2 (3.8-10.6) k/uL RBC 5.50 (4.30-5.90) m/uL Hgb 16.0 (13.0-17.5) gm/dL Hct 46.9 (39.0-53.0) % MCV 85.2 (80.0-100.0) fL MCH 29.1 (25.0-35.0) pg MCHC 34.1 (31.0-37.0) g/dL RDW 13.0 (11.5-15.5) % Plt Count 224 (150-450) k/uL Neutrophils % 63 % Lymphocytes % 23 % Monocytes % 7 % Eosinophils % 4 % Basophils % 1 % Neutrophils # 5.8 (1.3-7.7) k/uL Lymphocytes # 2.1 (1.0-4.8) k/uL Monocytes # 0.7 (0-1.0) k/uL Eosinophils # 0.4 (0-0.7) k/uL Basophils # 0.1 (0-0.2) k/uL PT (9.0-12.0) sec INR (<1.2) APTT (22.0-30.0) sec Sodium 137 (137-145) mmol/L Potassium 4.9 (3.5-5.1) mmol/L Chloride 108 H (98-107) mmol/L Carbon Dioxide 21 L (22-30) mmol/L Anion Gap 8 mmol/L BUN 15 (9-20) mg/dL Creatinine 0.70 (0.66-1.25) mg/dL Est GFR (CKD-EPI)AfAm >90 (>60 ml/min/1.73 sqM) Est GFR (CKD-EPI)NonAf >90 (>60 ml/min/1.73 sqM) Glucose 100 H (74-99) mg/dL Calcium 9.7 (8.4-10.2) mg/dL Total Bilirubin 1.0 (0.2-1.3) mg/dL AST 37 (17-59) U/L ALT 32 (21-72) U/L Alkaline Phosphatase 65 (38-126) U/L Total Creatine Kinase 172 H (55-170) U/L CK-MB (CK-2) 2.4 (0.0-2.4) ng/mL CK-MB (CK-2) Rel Index 1.4 Troponin I <0.012 (0.000-0.034) ng/mL Total Protein 7.5 (6.3-8.2) g/dL Albumin 4.5 (3.5-5.0) g/dL 12/14/17 Range/Units 13:07 WBC (3.8-10.6) k/uL RBC (4.30-5.90) m/uL Hgb (13.0-17.5) gm/dL Hct (39.0-53.0) % MCV (80.0-100.0) fL MCH (25.0-35.0) pg MCHC (31.0-37.0) g/dL RDW (11.5-15.5) % Plt Count (150-450) k/uL Neutrophils % % Lymphocytes % % Monocytes % % Eosinophils % % Basophils % % Neutrophils # (1.3-7.7) k/uL Lymphocytes # (1.0-4.8) k/uL Monocytes # (0-1.0) k/uL Eosinophils # (0-0.7) k/uL Basophils # (0-0.2) k/uL PT 9.5 (9.0-12.0) sec INR 1.0 (<1.2) APTT 26.5 (22.0-30.0) sec Sodium (137-145) mmol/L Potassium (3.5-5.1) mmol/L Chloride (98-107) mmol/L Carbon Dioxide (22-30) mmol/L Anion Gap mmol/L BUN (9-20) mg/dL Creatinine (0.66-1.25) mg/dL Est GFR (CKD-EPI)AfAm (>60 ml/min/1.73 sqM) Est GFR (CKD-EPI)NonAf (>60 ml/min/1.73 sqM) Glucose (74-99) mg/dL Calcium (8.4-10.2) mg/dL Total Bilirubin (0.2-1.3) mg/dL AST (17-59) U/L ALT (21-72) U/L Alkaline Phosphatase (38-126) U/L Total Creatine Kinase (55-170) U/L CK-MB (CK-2) (0.0-2.4) ng/mL CK-MB (CK-2) Rel Index Troponin I (0.000-0.034) ng/mL Total Protein (6.3-8.2) g/dL Albumin (3.5-5.0) g/dL Disposition Clinical Impression: Chest wall pain, Paresthesia Disposition: HOME SELF-CARE Condition: Good Instructions: Chest Pain (ED) Additional Instructions: Please follow-up the family physician over the next 2 days. Please continue anti-inflammatories. Please return to emergency room if any symptoms increase worsen or for any other concerns. Prescriptions: Ibuprofen [Motrin] 600 mg PO Q6HR PRN #30 day PRN Reason: Pain Is patient prescribed a controlled substance at d/c from ED?: No Referrals: None,Stated [Primary Care Provider] - 1-2 days Time of Disposition: 14:06
[2017-12-14] MEDS ORDERED: KETOROLAC 30 MG/ML 1 ML VIAL IVP STA (13:13)
[2017-12-14 13:21] LABS: Basophils # (A) 0.1 k/uL (0-0.2); Basophils % (A) 1 %; Eosinophils # (A) 0.4 k/uL (0-0.7); Eosinophils % (A) 4 %; HCT 46.9 % (39.0-53.0); Lymphocytes # (A) 2.1 k/uL (1.0-4.8); Lymphocytes % (A) 23 %; MCH 29.1 pg (25.0-35.0); MCHC 34.1 g/dL (31.0-37.0); MCV 85.2 fL (80.0-100.0); Mean Platelet Volume 6.9; Monocytes # (A) 0.7 k/uL (0-1.0); Monocytes % (A) 7 %; Neutrophils # (A) 5.8 k/uL (1.3-7.7); Neutrophils % (A) 63 %; Platelet Count 224 k/uL (150-450); WBC 9.2 k/uL (3.8-10.6)
[2017-12-14 13:30] LABS: Partial Thromboplastin Time 26.5 sec (22.0-30.0); Prothrombin Time 9.5 sec (9.0-12.0)
--- NOTE | 2017-12-14 13:30 | XR ---
EXAMINATION TYPE: XR chest 2V DATE OF EXAM: 12/14/2017 COMPARISON: 10/19/2016 TECHNIQUE: PA and lateral views submitted. HISTORY: Chest pain FINDINGS: The lungs are clear and there is no pneumothorax, pleural effusion, or focal pneumonia. No overt fa ilure. IMPRESSION: 1. No acute process.
[2017-12-14 13:31] LABS: ALT 32 U/L (21-72); AST 37 U/L (17-59); Albumin 4.5 g/dL (3.5-5.0); Alkaline Phosphatase 65 U/L (38-126); Anion Gap 8 mmol/L; Blood Urea Nitrogen 15 mg/dL (9-20); Calcium 9.7 mg/dL (8.4-10.2); Carbon Dioxide 21 mmol/L (22-30); Chloride 108 mmol/L (98-107); Glucose 100 mg/dL (74-99); Sodium 137 mmol/L (137-145); Total Protein 7.5 g/dL (6.3-8.2)
[2017-12-14 13:41] LABS: Creatine Kinase 172 U/L (55-170); Potassium 4.9 mmol/L (3.5-5.1)
[2017-12-14 13:55] LABS: Creatine Kinase MB 2.4 ng/mL (0.0-2.4); Troponin I <0.012 ng/mL (0.000-0.034)
[2017-12-14 14:19] VITALS: BP 107/59; PULSE 53; TEMP 97.6
== END 2017-12-14 14:40 | disposition home or self-care (01) ==
LOC: EC 12:00
DX: R07.89 Other chest pain (principal); R20.2 Paresthesia of skin; M25.512 Pain in left shoulder; R20.0 Anesthesia of skin; Z87.891 Personal history of nicotine dependence; Z88.0 Allergy status to penicillin; Z88.1 Allergy status to other antibiotic agents; Z88.2 Allergy status to sulfonamides; Z95.9 Presence of cardiac and vascular implant and graft, unspecified
CPT/HCPCS: 36415; 93005; 80053; 82550; 82553; 84484; 85025; 85610; 85730; 71046; 99285; 96374; J1885

== ENCOUNTER 2018-04-26 21:44 | Emergency (ER) | payer OTHER ==
[2018-04-26] MEDS ORDERED: ONDANSETRON 4 MG/2 ML VIAL IVP STA (23:33)
[2018-04-26] MEDS ORDERED: FAMOTIDINE 20 MG/2 ML VIAL IV STA (23:33)
[2018-04-26] MEDS ORDERED: KETOROLAC 30 MG/ML 1 ML VIAL IVP STA (23:33)
[2018-04-26] MEDS ORDERED: SODIUM CHLORIDE 0.9% 1,000 ML IV STA (23:33)
--- NOTE | 2018-04-26 23:52 | ED ---
General Adult HPI - General Chief complaint: Nausea/Vomiting/Diarrhea Stated complaint: Vomiting Time Seen by Provider: 04/26/18 23:22 Source: patient, RN notes reviewed Mode of arrival: ambulatory Limitations: no limitations - History of Present Illness Initial comments: Patient 38-year-old male presenting to the emergency room today with multiple complaints. Was met that he's had cough congestion over the last week. States he's also had nausea vomiting that started earlier today. He states that his son had similar symptoms at home that had upper respiratory symptoms followed by nausea vomiting. Patient states that he does have increased body aches. He denies any recorded temperatures. Denies any diarrhea. Denies any specific abdominal pain. Patient does admit to cough congestion with sputum production it's been green in color. Denies any other complaints. Patient denies any recent fever, chills, shortness of breath, chest pain, back pain, numbness or tingling, headaches or visual changes, or any other complaints. - Related Data Home Medications Medication Instructions Recorded Confirmed Ibuprofen [Motrin Ib] 400 mg PO Q6H PRN 12/14/17 04/26/18 Acetaminophen Tab [Tylenol] 650 mg PO Q8H 04/26/18 04/26/18 Albuterol Nebulized [Ventolin 2.5 mcg PO Q8HR 04/26/18 04/26/18 Nebulized] Menthol [[place]] 7.5 mg PO DIRECTED 04/26/18 04/26/18 Previous Rx's Medication Instructions Recorded Azithromycin [Zithromax Z-pack] 0 mg PO DIRECTED #6 tab 04/27/18 Ondansetron Odt [Zofran ODT] 4 mg PO Q8HR PRN #20 tab 04/27/18 predniSONE 50 mg PO DAILY #5 tab 04/27/18 Allergies Allergy/AdvReac Type Severity Reaction Status Date / Time erythromycin base Allergy Dyspnea Verified 04/26/18 23:18 [Erythromycin Base] Penicillins Allergy Dyspnea Verified 04/26/18 23:18 sulfamethoxazole Allergy Dyspnea Verified 04/26/18 23:18 [From ] trimethoprim [From ] Allergy Dyspnea Verified 04/26/18 23:18 Review of Systems ROS Statement: Those systems with pertinent positive or pertinent negative responses have been documented in the HPI. ROS Other: All systems not noted in ROS Statement are negative. Past Medical History Past Medical History: Asthma Additional Past Medical History / Comment(s): back pain, meningitis as infant History of Any Multi-Drug Resistant Organisms: None Reported Past Surgical History: Heart Catheterization, Orthopedic Surgery Additional Past Surgical History / Comment(s): heart cath no stents, left thumb surgery, ESWL Past Psychological History: ADD/ADHD, Bipolar Smoking Status: Former smoker Past Alcohol Use History: None Reported Past Drug Use History: None Reported General Exam - General Exam Comments Initial Comments: General: The patient is awake and alert, in no distress, and does not appear acutely ill. Eye: There is normal conjunctiva bilaterally. No signs of icterus. Ears, nose, mouth and throat: There are moist mucous membranes and no oral lesions. Neck: The neck is supple, there is no tenderness or JVD. Cardiovascular: There is a regular rate and rhythm. No murmur, rub or gallop is appreciated. Respiratory: Lungs are clear to auscultation, respirations are non-labored, breath sounds are equal. No wheezes, stridor, rales, or rhonchi. Gastrointestinal: Soft, non-distended, non-tender abdomen without masses or organomegaly noted. There is no rebound or guarding present. No CVA tenderness. Musculoskeletal: Normal ROM, no tenderness. Neurological: A&O x 3. CN II-XII intact, There are no obvious motor or sensory deficits. Coordination appears grossly intact. Speech is normal. Skin: Skin is warm and dry and no rashes or lesions are noted. Psychiatric: Cooperative, appropriate mood & affect, normal judgment. Limitations: no limitations Course Vital Signs 04/26/18 04/26/18 22:11 23:31 Temperature 98.4 F Pulse Rate 72 64 Respiratory 18 18 Rate Blood Pressure 119/70 130/77 O2 Sat by Pulse 97 97 Oximetry Medical Decision Making - Medical Decision Making Patient's chest x-rays negative. Patient reexamined at this time shows no signs of distress. Patient does have history of asthma. Has had sputum production. His labs reviewed are unremarkable. Patient does have nebulizer machine at home but no medicine. Will be given prescription for albuterol. Also be given a course of steroids and azithromycin for bronchitis. - Lab Data Result diagrams: 04/27/18 00:00 04/27/18 00:00 Lab Results 04/27/18 04/27/1818 Range/Units 00:00 00:00 00:30 WBC 9.6 (3.8-10.6) k/uL RBC 5.50 (4.30-5.90) m/uL Hgb 16.0 (13.0-17.5) gm/dL Hct 47.6 (39.0-53.0) % MCV 86.4 (80.0-100.0) fL MCH 29.1 (25.0-35.0) pg MCHC 33.7 (31.0-37.0) g/dL RDW 13.0 (11.5-15.5) % Plt Count 238 (150-450) k/uL Neutrophils % 62 % Lymphocytes % 20 % Monocytes % 9 % Eosinophils % 4 % Basophils % 1 % Neutrophils # 5.9 (1.3-7.7) k/uL Lymphocytes # 1.9 (1.0-4.8) k/uL Monocytes # 0.9 (0-1.0) k/uL Eosinophils # 0.4 (0-0.7) k/uL Basophils # 0.1 (0-0.2) k/uL Sodium 139 (137-145) mmol/L Potassium 4.4 (3.5-5.1) mmol/L Chloride 106 (98-107) mmol/L Carbon Dioxide 25 (22-30) mmol/L Anion Gap 8 mmol/L BUN 12 (9-20) mg/dL Creatinine 0.75 (0.66-1.25) mg/dL Est GFR (CKD-EPI)AfAm >90 (>60 ml/min/1.73 sqM) Est GFR (CKD-EPI)NonAf >90 (>60 ml/min/1.73 sqM) Glucose 94 (74-99) mg/dL Calcium 9.5 (8.4-10.2) mg/dL Total Bilirubin 0.6 (0.2-1.3) mg/dL AST 54 (17-59) U/L ALT 57 (21-72) U/L Alkaline Phosphatase 75 (38-126) U/L Total Protein 7.5 (6.3-8.2) g/dL Albumin 4.2 (3.5-5.0) g/dL Lipase 56 (23-300) U/L Urine Color Yellow Urine Appearance Clear (Clear) Urine pH 6.0 (5.0-8.0) Ur Specific [place] 1.020 (1.001-1.035) Urine Protein Trace H (Negative) Urine Glucose (UA) Negative (Negative) Urine Ketones Negative (Negative) Urine Blood Negative (Negative) Urine Nitrite Negative (Negative) Urine Bilirubin Negative (Negative) Urine Urobilinogen 2.0 (<2.0) mg/dL Ur Leukocyte Esterase Trace H (Negative) Urine RBC 2 (0-5) /hpf Urine WBC 4 (0-5) /hpf Ur Squamous Epith Cells <1 (0-4) /hpf Urine Mucus Many H (None) /hpf Disposition Clinical Impression: Acute bronchitis, Nausea & vomiting Disposition: HOME SELF-CARE Condition: Good Instructions: Acute Bronchitis (ED) Additional Instructions: Please use medication as discussed. Please follow-up with family doctor in the next 2 days of symptoms have not improved. Please return to emergency room if the symptoms increase or worsen or for any other concerns. Prescriptions: Azithromycin [Zithromax Z-pack] 0 mg PO DIRECTED #6 tab Ondansetron Odt [Zofran ODT] 4 mg PO Q8HR PRN #20 tab PRN Reason: Nausea predniSONE 50 mg PO DAILY #5 tab Is patient prescribed a controlled substance at d/c from ED?: No Referrals: Jim Bella MD [Primary Care Provider] - 1-2 days Time of Disposition: 01:16
[2018-04-27 00:31] LABS: ALT 57 U/L (21-72); AST 54 U/L (17-59); Albumin 4.2 g/dL (3.5-5.0); Alkaline Phosphatase 75 U/L (38-126); Anion Gap 8 mmol/L; Basophils # (A) 0.1 k/uL (0-0.2); Basophils % (A) 1 %; Blood Urea Nitrogen 12 mg/dL (9-20); Calcium 9.5 mg/dL (8.4-10.2); Carbon Dioxide 25 mmol/L (22-30); Chloride 106 mmol/L (98-107); Eosinophils # (A) 0.4 k/uL (0-0.7); Eosinophils % (A) 4 %; Glucose 94 mg/dL (74-99); HCT 47.6 % (39.0-53.0); Lipase 56 U/L (23-300); Lymphocytes # (A) 1.9 k/uL (1.0-4.8); Lymphocytes % (A) 20 %; MCH 29.1 pg (25.0-35.0); MCHC 33.7 g/dL (31.0-37.0); MCV 86.4 fL (80.0-100.0); Mean Platelet Volume 7.1; Monocytes # (A) 0.9 k/uL (0-1.0); Monocytes % (A) 9 %; Neutrophils # (A) 5.9 k/uL (1.3-7.7); Neutrophils % (A) 62 %; Platelet Count 238 k/uL (150-450); Potassium 4.4 mmol/L (3.5-5.1); Sodium 139 mmol/L (137-145); Total Bilirubin 0.6 mg/dL (0.2-1.3); Total Protein 7.5 g/dL (6.3-8.2); WBC 9.6 k/uL (3.8-10.6)
--- NOTE | 2018-04-27 00:37 | XR ---
EXAMINATION TYPE: XR chest 2V DATE OF EXAM: 04/27/2018 COMPARISON: 12/14/2017 HISTORY: Cough TECHNIQUE: Frontal and lateral views of the chest are obtained. FINDINGS: Heart and mediastinum are normal. Lungs are clear. Diaphragm is normal. Bony thorax appear s normal. IMPRESSION: Normal chest. No change.
[2018-04-27 00:59] LABS: Appearance,Urine Clear (Clear); Bilirubin,Urine Negative (Negative); Blood,Urine Negative (Negative); Color,Urine Yellow; Glucose,Urine (UA) Negative (Negative); Ketones,Urine Negative (Negative); Leukocyte Esterase,Urine Trace (Negative); Mucus,Urine Many /hpf; Nitrite,Urine Negative (Negative); Protein,Urine Trace (Negative); RBC,Urine 2 /hpf (0-5); Squamous Epithelial Cell,Urine <1 /hpf (0-4)
[2018-04-27 01:28] VITALS: BP 119/73; PULSE 69; RESP 16; TEMP 97.3
== END 2018-04-27 01:32 | disposition home or self-care (01) ==
LOC: EC 21:44
DX: J20.9 Acute bronchitis, unspecified (principal); R11.2 Nausea with vomiting, unspecified; J45.909 Unspecified asthma, uncomplicated; Z87.891 Personal history of nicotine dependence; Z88.0 Allergy status to penicillin; Z88.1 Allergy status to other antibiotic agents; Z88.2 Allergy status to sulfonamides; Z79.891 Long term (current) use of opiate analgesic; Z79.899 Other long term (current) drug therapy; Z87.39 Personal history of other diseases of the musculoskeletal system and connective tissue; Z95.818 Presence of other cardiac implants and grafts
CPT/HCPCS: 36415; 80053; 83690; 85025; 81001; 71046; 99284; 96374; 96375 ×2; 96361; J2405; J1885

== ENCOUNTER 2018-10-10 10:00 | Emergency (ER) | payer OTHER ==
[2018-10-10 10:08] VITALS: BP 119/72; PULSE 60; RESP 18; TEMP 98.5
[2018-10-10] MEDS ORDERED: PROPARACAINE 0.5% OPHTH DROPS 15 ML BTL LEFT EYE STA (10:19)
--- NOTE | 2018-10-10 10:28 | ED ---
Eye Problem HPI - General Chief complaint: Eye Problems Stated complaint: Impaired vision Time Seen by Provider: 10/10/18 10:09 Source: patient Mode of arrival: ambulatory Limitations: no limitations - History of Present Illness Initial comments: Patient is a 38-year-old male presenting to the emergency Department with complaints of pain in his left eye 3 days. Patient states he noticed irritation in his left eye on Sunday, felt like something was in there. States he tried flushing the eye and it didn't help. Symptoms have progressed over the past few days. Patient admits to some clear discharge. States she tried ALLERGY drops and flushing his eye with eyewash didn't help. Patient also admits to some blurriness of the left eye. Patient denies any past medical history with his left eye. Denies contact use. - Related Data Home Medications Medication Instructions Recorded Confirmed Ibuprofen [Motrin Ib] 400 mg PO Q6H PRN 12/14/17 04/26/18 Acetaminophen Tab [Tylenol] 650 mg PO Q8H 04/26/18 04/26/18 Albuterol Nebulized [Ventolin 2.5 mcg PO Q8HR 04/26/18 04/26/18 Nebulized] Menthol [[place]] 7.5 mg PO DIRECTED 04/26/18 04/26/18 Previous Rx's Medication Instructions Recorded Azithromycin [Zithromax Z-pack] 0 mg PO DIRECTED #6 tab 04/27/18 Ondansetron Odt [Zofran ODT] 4 mg PO Q8HR PRN #20 tab 04/27/18 predniSONE 50 mg PO DAILY #5 tab 04/27/18 Ciprofloxacin Ophth Soln [Ciloxan 1 drops LEFT EYE Q4HR 5 Days #1 10/10/18 0.3% Ophth Soln] bottle Allergies Allergy/AdvReac Type Severity Reaction Status Date / Time erythromycin base Allergy Dyspnea Verified 10/10/18 10:07 [Erythromycin Base] Penicillins Allergy Dyspnea Verified 10/10/18 10:07 sulfamethoxazole Allergy Dyspnea Verified 10/10/18 10:07 [From ] trimethoprim [From ] Allergy Dyspnea Verified 10/10/18 10:07 Review of Systems ROS Statement: Those systems with pertinent positive or pertinent negative responses have been documented in the HPI. ROS Other: All systems not noted in ROS Statement are negative. Past Medical History Past Medical History: Asthma Additional Past Medical History / Comment(s): back pain, meningitis as History of Any Multi-Drug Resistant Organisms: None Reported Past Surgical History: Heart Catheterization, Orthopedic Surgery Additional Past Surgical History / Comment(s): heart cath no stents, left thumb surgery, ESWL Past Psychological History: ADD/ADHD, Bipolar Smoking Status: Former smoker Past Alcohol Use History: None Reported Past Drug Use History: None Reported General Exam - General Exam Comments Initial Comments: GENERAL: Well-appearing, well-nourished and in no acute distress. HEAD: Atraumatic, normocephalic. EYES: Pupils equal round and reactive to light, extraocular movements intact, sclera anicteric, conjunctiva are normal. No erythema, drainage. Exam with fluorescein stain revealed a corneal abrasion at the 1 o'clock position. ENT: TMs normal, nares patent, oropharynx clear without exudates. Moist mucous membranes. NECK: Normal range of motion, supple without lymphadenopathy or JVD. LUNGS: Breath sounds clear to auscultation bilaterally and equal. No wheezes rales or rhonchi. HEART: Regular rate and rhythm without murmurs, rubs or gallops. ABDOMEN: Soft, nontender, normoactive bowel sounds. No guarding, no rebound. No masses appreciated. : Deferred EXTREMITIES: Normal range of motion, no pitting or edema. No clubbing or cyanosis. NEUROLOGICAL: Cranial nerves II through XII grossly intact. Normal speech, normal gait. PSYCH: Normal mood, normal affect. SKIN: Warm, Dry, normal turgor, no rashes or lesions noted. Limitations: no limitations Expanded IOP measured with: Tonopen (12) Course Vital Signs 10/10/18 10:05 Temperature 98.5 F Pulse Rate 60 Respiratory 18 Rate Blood Pressure 119/72 O2 Sat by Pulse 98 Oximetry Medical Decision Making - Medical Decision Making Patient is a 38-year-old male complaining of left eye pain 3 days. Patient states he noticed an irritation 3 days ago but doesn't recall getting anything in his eye. Patient denies contact use. With the fluorescein stain there is an abrasion at the 1 o'clock position. Blanco-Pen pressure of the eye was 12. Patient will be discharged home with antibiotic eyedrops. Patient will follow up with ophthalmology in 1 to 3 days of symptoms continue. Disposition Clinical Impression: Corneal abrasion Disposition: HOME SELF-CARE Condition: Stable Instructions (If sedation given, give patient instructions): Abrasion (ED) Additional Instructions: Please return to the Emergency Department if symptoms worsen or any other concerns. Follow-up with [facility] marketing in 1 to 3 days if symptoms do not improve. Prescriptions: Ciprofloxacin Ophth Soln [Ciloxan 0.3% Ophth Soln] 1 drops LEFT EYE Q4HR 5 Days #1 bottle Is patient prescribed a controlled substance at d/c from ED?: No Referrals: Jim Bella MD [Primary Care Provider] - 1-2 days Dhiraj Parikh MD [STAFF PHYSICIAN] - 1-2 days
== END 2018-10-10 11:22 | disposition home or self-care (01) ==
LOC: EC 10:00
DX: S05.02XA Injury of conjunctiva and corneal abrasion without foreign body, left eye, initial encounter (principal); J45.909 Unspecified asthma, uncomplicated; Z87.891 Personal history of nicotine dependence; Z79.899 Other long term (current) drug therapy; Z88.0 Allergy status to penicillin; Z88.1 Allergy status to other antibiotic agents; Z88.2 Allergy status to sulfonamides; Z95.818 Presence of other cardiac implants and grafts
CPT/HCPCS: 99283

== ENCOUNTER 2019-02-05 15:51 | Emergency (ER) | payer OTHER ==
[2019-02-05 16:07] VITALS: BP 116/72; PULSE 84; RESP 20; TEMP 99
[2019-02-05] MEDS ORDERED: cefTRIAXone 1,000 MG VIAL (IM USE) IM STA (16:42)
--- NOTE | 2019-02-05 16:45 | ED ---
ENT HPI - General Chief complaint: Dental/Oral Stated complaint: rt sided facial swelling Time Seen by Provider: 02/05/19 16:10 Source: patient, RN notes reviewed Mode of arrival: ambulatory Limitations: no limitations - History of Present Illness Initial comments: 38-year-old male presents emergency Department chief complaint right-sided facial pain. Patient states is very poor dentition has had multiple recent recurrent dental infections. Patient states he woke up this finding pain today. Patient denies any fevers or chills. Patient states on has gone down somewhat throughout the day. Patient is on no medications for this. Patient denies any neck pain, neck stiffness patient offers no other complaints - Related Data Home Medications Medication Instructions Recorded Confirmed Ibuprofen [Motrin Ib] 400 mg PO Q6H PRN 12/14/17 04/26/18 Acetaminophen Tab [Tylenol] 650 mg PO Q8H 04/26/18 04/26/18 Albuterol Nebulized [Ventolin 2.5 mcg PO Q8HR 04/26/18 04/26/18 Nebulized] Menthol [[place]] 7.5 mg PO DIRECTED 04/26/18 04/26/18 Previous Rx's Medication Instructions Recorded Azithromycin [Zithromax Z-pack] 0 mg PO DIRECTED #6 tab 04/27/18 Ondansetron Odt [Zofran ODT] 4 mg PO Q8HR PRN #20 tab 04/27/18 predniSONE 50 mg PO DAILY #5 tab 04/27/18 Ciprofloxacin Ophth Soln [Ciloxan 1 drops LEFT EYE Q4HR 5 Days #1 10/10/18 0.3% Ophth Soln] bottle Clindamycin HCl 300 mg PO Q6HR #40 cap 02/05/19 Ibuprofen [Motrin] 600 mg PO Q8HR PRN #30 tab 02/05/19 Allergies Allergy/AdvReac Type Severity Reaction Status Date / Time erythromycin base Allergy Dyspnea Verified 02/05/19 16:07 [Erythromycin Base] morphine Allergy Hallucinati Verified 02/05/19 16:07 ons Penicillins Allergy Dyspnea Verified 02/05/19 16:07 sulfamethoxazole Allergy Dyspnea Verified 02/05/19 16:07 [From ] trimethoprim [From ] Allergy Dyspnea Verified 02/05/19 16:07 Review of Systems ROS Statement: Those systems with pertinent positive or pertinent negative responses have been documented in the HPI. ROS Other: All systems not noted in ROS Statement are negative. Past Medical History Past Medical History: Asthma Additional Past Medical History / Comment(s): back pain, meningitis as infant History of Any Multi-Drug Resistant Organisms: None Reported Past Surgical History: Heart Catheterization, Orthopedic Surgery Additional Past Surgical History / Comment(s): heart cath no stents, left thumb surgery, ESWL Past Psychological History: ADD/ADHD, Bipolar Smoking Status: Former smoker Past Alcohol Use History: None Reported Past Drug Use History: None Reported General Exam Limitations: no limitations General appearance: alert, in no apparent distress Head exam: Present: atraumatic, normocephalic, normal inspection Eye exam: Present: normal appearance, PERRL, EOMI. Absent: scleral icterus, conjunctival injection, periorbital swelling ENT exam: Present: mucous membranes moist, TM's normal bilaterally, normal external ear exam. Absent: normal oropharynx (Edentulous, no drainable abscess.) Neck exam: Present: normal inspection, full ROM. Absent: tenderness, meningismus, lymphadenopathy Respiratory exam: Present: normal lung sounds bilaterally. Absent: respiratory distress, wheezes, rales, rhonchi, stridor Cardiovascular Exam: Present: regular rate, normal rhythm, normal heart sounds. Absent: systolic murmur, diastolic murmur, rubs, gallop, clicks Course Vital Signs 02/05/19 16:05 Temperature 99 F Pulse Rate 84 Respiratory 20 Rate Blood Pressure 116/72 O2 Sat by Pulse 98 Oximetry Medical Decision Making - Medical Decision Making Patient's found to have a dental infection and right side. There is no drainable abscess. Patient was started on clindamycin. Return parameters were discussed. Disposition Clinical Impression: Dental abscess Disposition: HOME SELF-CARE Condition: Stable Instructions (If sedation given, give patient instructions): Dental Abscess (ED) Additional Instructions: Please return to the Emergency Department if symptoms worsen or any other concerns. Prescriptions: Clindamycin HCl 300 mg PO Q6HR #40 cap Ibuprofen [Motrin] 600 mg PO Q8HR PRN #30 tab PRN Reason: Pain Is patient prescribed a controlled substance at d/c from ED?: No Referrals: None,Stated [Primary Care Provider] - 1-2 days Time of Disposition: 16:43
== END 2019-02-05 16:57 | disposition home or self-care (01) ==
LOC: EC 15:51
DX: K04.7 Periapical abscess without sinus (principal); J45.909 Unspecified asthma, uncomplicated; Z87.891 Personal history of nicotine dependence; Z88.0 Allergy status to penicillin; Z88.1 Allergy status to other antibiotic agents; Z88.2 Allergy status to sulfonamides; Z88.5 Allergy status to narcotic agent; Z79.891 Long term (current) use of opiate analgesic; Z79.899 Other long term (current) drug therapy; Z87.39 Personal history of other diseases of the musculoskeletal system and connective tissue
CPT/HCPCS: 99283; 96372; J0696

== ENCOUNTER 2019-02-17 14:01 | Emergency (ER) | payer OTHER ==
[2019-02-17 14:15] VITALS: BP 121/72; PULSE 78; RESP 18; TEMP 98.2
[2019-02-17] MEDS ORDERED: AZITHROMYCIN 500 MG TAB PO STA (14:47)
[2019-02-17] MEDS ORDERED: ACET/COD 300 MG/30 MG STARTER PACK 6 TAB BTL PO STA (14:48)
--- NOTE | 2019-02-17 14:53 | ED ---
ENT HPI - General Chief complaint: Dental/Oral Stated complaint: Tooth Pain Time Seen by Provider: 02/17/19 14:18 Source: patient Mode of arrival: ambulatory Limitations: no limitations - History of Present Illness Initial comments: 38-year-old male patient presents to the emergency department today for evaluation of right-sided facial swelling and pain. Patient was seen and evaluated little over 10 days ago and diagnosed with a dental abscess. Patient states he did complete 10 day course of clindamycin. Patient states his symptoms did improve somewhat but he still has significant swelling and pain to the right side of his face. States he started to have pain in his right ear yesterday. He denies any fever or chills with this. Denies nausea or vomiting. Patient denies any trismus or difficulty swallowing. He states he did contact dentistry but they will not see him until the infection is cleared. Patient denies any recent rash, shortness breath, chest pain, abdominal pain, diarrhea, constipation, back pain, numbness, tingling, dizziness, weakness, hematuria, dysuria, urinary urgency, urinary frequency, headache, visual changes, or any other complaints. - Related Data Home Medications Medication Instructions Recorded Confirmed Ibuprofen [Motrin Ib] 400 mg PO Q6H PRN 12/14/17 04/26/18 Acetaminophen Tab [Tylenol] 650 mg PO Q8H 04/26/18 04/26/18 Albuterol Nebulized [Ventolin 2.5 mcg PO Q8HR 04/26/18 04/26/18 Nebulized] Menthol [[place]] 7.5 mg PO DIRECTED 04/26/18 04/26/18 Previous Rx's Medication Instructions Recorded Azithromycin [Zithromax Z-pack] 0 mg PO DIRECTED #6 tab 04/27/18 Ondansetron Odt [Zofran ODT] 4 mg PO Q8HR PRN #20 tab 04/27/18 predniSONE 50 mg PO DAILY #5 tab 04/27/18 Ciprofloxacin Ophth Soln [Ciloxan 1 drops LEFT EYE Q4HR 5 Days #1 10/10/18 0.3% Ophth Soln] bottle Clindamycin HCl 300 mg PO Q6HR #40 cap 02/05/19 Ibuprofen [Motrin] 600 mg PO Q8HR PRN #30 tab 02/05/19 Azithromycin [Zithromax Z-pack] 0 mg PO DIRECTED #6 tab 02/17/19 Allergies Allergy/AdvReac Type Severity Reaction Status Date / Time erythromycin base Allergy Dyspnea Verified 02/05/19 16:07 [Erythromycin Base] morphine Allergy Hallucinati Verified 02/05/19 16:07 ons Penicillins Allergy Dyspnea Verified 02/05/19 16:07 sulfamethoxazole Allergy Dyspnea Verified 02/05/19 16:07 [From ] trimethoprim [From ] Allergy Dyspnea Verified 02/05/19 16:07 Review of Systems ROS Statement: Those systems with pertinent positive or pertinent negative responses have been documented in the HPI. ROS Other: All systems not noted in ROS Statement are negative. Past Medical History Past Medical History: Asthma Additional Past Medical History / Comment(s): back pain, meningitis as infant History of Any Multi-Drug Resistant Organisms: None Reported Past Surgical History: Heart Catheterization, Orthopedic Surgery Additional Past Surgical History / Comment(s): heart cath no stents, left thumb surgery, ESWL Past Psychological History: ADD/ADHD, Bipolar Smoking Status: Former smoker Past Alcohol Use History: None Reported Past Drug Use History: None Reported General Exam Limitations: no limitations General appearance: alert, in no apparent distress, other (Physical well- developed, well-nourished adult male patient in no acute distress. Vital signs upon presentation are temperature 98.2F, pulse 78, respirations 18, blood pressure 121/72, pulse ox 98% on room air.) Eye exam: Present: normal appearance, PERRL, EOMI. Absent: scleral icterus, conjunctival injection, periorbital swelling ENT exam: Present: normal oropharynx, mucous membranes moist, other (Right-sided facial swelling. There is gingival erythema and swelling, no evidence of drainable abscess. There is very poor dentition with multiple broken teeth and dental caries.) Respiratory exam: Present: normal lung sounds bilaterally. Absent: respiratory distress, wheezes, rales, rhonchi, stridor Cardiovascular Exam: Present: regular rate, normal rhythm, normal heart sounds. Absent: systolic murmur, diastolic murmur, rubs, gallop, clicks GI/Abdominal exam: Present: soft, normal bowel sounds. Absent: distended, tenderness, guarding, rebound, rigid Neurological exam: Present: alert, oriented X3, CN II-XII intact Psychiatric exam: Present: normal affect, normal mood Skin exam: Present: warm, dry, intact, normal color. Absent: rash Course Vital Signs 02/17/19 14:12 Temperature 98.2 F Pulse Rate 78 Respiratory 18 Rate Blood Pressure 121/72 O2 Sat by Pulse 98 Oximetry Medical Decision Making - Medical Decision Making 38-year-old male patient with multiple medication ALLERGIES presents to the emergency department today for evaluation of right-sided facial swelling and dental pain. Physical examination did reveal right-sided facial swelling, poor dentition, and gingival erythema and hyperplasia without evidence for drainable abscess. Vital signs are reassuring with no elevated heart rate are temperature. Given patient's ALLERGIES we will start patient on azithromycin for dental infection. Patient does have history of prolonged QT, EKG showed normal sinus with no evidence for this at this time we will continue with this medication. Discharged to follow up with dentistry for recheck as soon as possible. He is instructed follow up with his primary care physician for recheck in 1-2 days. Return parameters were discussed in detail. He verbalizes understanding and agrees with this plan. - EKG Data -: EKG Interpreted by Me EKG Comments: EKG shows normal sinus rhythm with a sinus arrhythmia. Ventricular rate is 70, AR interval 156, QRS duration 86, QT 372, QTc 41. No evidence of ST elevation or depression. Disposition Clinical Impression: Dental abscess Disposition: HOME SELF-CARE Condition: Good Instructions (If sedation given, give patient instructions): Dental Abscess (ED) Additional Instructions: Complete antibiotic prescription in full. Take over the counter probiotic to prevent intestinal infections from antibiotic use. Continue with mouth rinses and brushing. Follow up with the dentist as soon as possible. Follow up with your primary care physician for recheck in 1-2 days. Return to the emergency department immediately for any new, worsening, or concerning symptoms. Prescriptions: Azithromycin [Zithromax Z-pack] 0 mg PO DIRECTED #6 tab Is patient prescribed a controlled substance at d/c from ED?: No Referrals: None,Stated [Primary Care Provider] - 1-2 days Time of Disposition: 15:30
[2019-02-17] MEDS ORDERED: KETOROLAC 30 MG/ML 1 ML VIAL IM STA (15:18)
== END 2019-02-17 15:38 | disposition home or self-care (01) ==
LOC: EC 14:01
DX: K04.7 Periapical abscess without sinus (principal); K02.9 Dental caries, unspecified; S02.5XXA Fracture of tooth (traumatic), initial encounter for closed fracture; J45.909 Unspecified asthma, uncomplicated; Z88.0 Allergy status to penicillin; Z88.1 Allergy status to other antibiotic agents; Z88.2 Allergy status to sulfonamides; Z88.5 Allergy status to narcotic agent; Z87.891 Personal history of nicotine dependence; X58.XXXA Exposure to other specified factors, initial encounter
CPT/HCPCS: 93005; 99283; 96372; J1885

== ENCOUNTER 2019-07-08 06:07 | Emergency (ER) | payer OTHER ==
[2019-07-08 06:14] VITALS: TEMP 98
[2019-07-08] MEDS ORDERED: SODIUM CHLORIDE 0.9% 500 ML 500 ML IV STA (06:26)
--- NOTE | 2019-07-08 06:28 | ED ---
GI Bleed HPI - General Chief complaint: GI Bleed Stated complaint: vomiting Time Seen by Provider: 07/08/19 06:15 Source: patient Mode of arrival: ambulatory Limitations: no limitations - History of Present Illness Initial comments: 39-year-old male with no history of lung nodules be monitored for the past year presenting today for chief complaint of puking up blood. Patient states thathe is lactose intolerant and drank a milk shake yesterday, has vomiting after, noted small amount of blood in it, today patient states that he has vomiting throughout the night with bright red blood in it then coughed and had blood in it as well. Patient states he has had some shortness of breath this week, he is a smoker. Patient denies any chest pain or pressure denies pain with deep inspiration, denies any known cancer, recent surgeries, DVT/PE, unilateral leg swelling/calf pain, recent immobilization/fractures. Patient overall is a poor provider of history although he is AAOx3 no mental changes, just does not want to talk, does not appears acute dyspneic. Patient does provider more history. states that patient states he was vomting blood, but patient states he did cough of blood after. Denies ETOH abuse, liver disease, IVDU or esophageal varices. Patient denies noting melena or hematochezia. Patient denies fever, URI symptoms, diarrhea. Patient states his body aches but no localized abdominal pain. States he has had chronic pain that feels like needles throughout his blood since a medication induced stress test (years ago) Upon arrival patient appears well, nontoxic. BP elevated. - Related Data Home Medications Medication Instructions Recorded Confirmed Ibuprofen [Motrin Ib] 400 mg PO Q6H PRN 12/14/17 04/26/18 Acetaminophen Tab [Tylenol] 650 mg PO Q8H 04/26/18 04/26/18 Albuterol Nebulized [Ventolin 2.5 mcg PO Q8HR 04/26/18 04/26/18 Nebulized] Menthol [[place]] 7.5 mg PO DIRECTED 04/26/18 04/26/18 Previous Rx's Medication Instructions Recorded Azithromycin [Zithromax Z-pack] 0 mg PO DIRECTED #6 tab 04/27/18 Ondansetron Odt [Zofran ODT] 4 mg PO Q8HR PRN #20 tab 04/27/18 predniSONE 50 mg PO DAILY #5 tab 04/27/18 Ciprofloxacin Ophth Soln [Ciloxan 1 drops LEFT EYE Q4HR 5 Days #1 10/10/18 0.3% Ophth Soln] bottle Clindamycin HCl 300 mg PO Q6HR #40 cap 02/05/19 Ibuprofen [Motrin] 600 mg PO Q8HR PRN #30 tab 02/05/19 Azithromycin [Zithromax Z-pack] 0 mg PO DIRECTED #6 tab 02/17/19 Ondansetron Odt [Zofran Odt] 4 mg PO Q8HR PRN 7 Days #21 tab 07/08/19 Allergies Allergy/AdvReac Type Severity Reaction Status Date / Time erythromycin base Allergy Dyspnea Verified 07/08/19 06:15 [Erythromycin Base] morphine Allergy Hallucinati Verified 07/08/19 06:15 ons Penicillins Allergy Dyspnea Verified 07/08/19 06:15 sulfamethoxazole Allergy Dyspnea Verified 07/08/19 06:15 [From ] trimethoprim [From ] Allergy Dyspnea Verified 07/08/19 06:15 Review of Systems ROS Statement: Those systems with pertinent positive or pertinent negative responses have been documented in the HPI. ROS Other: All systems not noted in ROS Statement are negative. Past Medical History Past Medical History: Asthma Additional Past Medical History / Comment(s): back pain, meningitis as infant History of Any Multi-Drug Resistant Organisms: None Reported Past Surgical History: Heart Catheterization, Orthopedic Surgery Additional Past Surgical History / Comment(s): heart cath no stents, left thumb surgery, ESWL Past Psychological History: ADD/ADHD, Bipolar Smoking Status: Former smoker Past Alcohol Use History: None Reported Past Drug Use History: None Reported General Exam - General Exam Comments Initial Comments: General: The patient is awake and alert, in no distress Eye: +3 mm pupils are equal, round and reactive to light, extra-ocular movements are intact. No nystagmus. There is normal conjunctiva bilaterally. No signs of icterus. Ears, nose, mouth and throat: There are moist mucous membranes and no oral lesions. Neck: The neck is supple, there is no tenderness or JVD. Cardiovascular: There is a regular rate and rhythm. No murmur, rub or gallop is appreciated. Respiratory: Lungs are clear to auscultation, respirations are non-labored, breath sounds are equal. No wheezes, stridor, rales, or rhonchi. Gastrointestinal: Soft, non-distended, non-tender abdomen without masses or organomegaly noted. There is no rebound or guarding present. Musculoskeletal: Normal ROM, no tenderness. Strength 5/5. Sensation intact. Radial pulses equal bilaterally 2+. Neurological: A&O x 3. CN II-XII intact grossly, There are no obvious motor or sensory deficits. Coordination appears grossly intact. Speech is normal. Skin: Skin is warm and dry and no rashes or lesions are noted. No LE edema, no calf pain or swelling is noted. Psychiatric: Cooperative, appropriate mood & affect, normal judgment. Limitations: no limitations Course Vital Signs 07/08/19 07/08/19 06:11 10:08 Temperature 98.0 F Pulse Rate 99 79 Respiratory 20 18 Rate Blood Pressure 155/96 127/74 O2 Sat by Pulse 96 96 Oximetry Medical Decision Making - Medical Decision Making 39-year-old male presenting today for chief complaint of vomiting, blood in vomit. All over pain-chronic. SOB that has been ongoing for 1 week. Patient appears well he is not toxic lungs are clear no signs of respiratory distress. D-dimer undetectable. Troponin (-). EKG no acute findings of ischemia. Patient denies chest pain, pressure. Patient abdomen soft nontender. Patient appears well. Small amount of blood was described in vomit. Patient on reevaluation is happily chatting, does not appears in disterss ,he begins discussing how he needs a work note. Denies current SOB, no chest pain. Patient labs stable including HgB. Patient has no mumur, BNP wnl. I discussed case wt Dr. Reyes who is agreeable to discharge with strict return parameters and PCP f/u. Patient discharged appearing well, agreeable to care plan. - Lab Data Result diagrams: 07/08/19 06:30 07/08/19 06:30 Lab Results 07/08/19 07/08/19 07/08/19 Range/Units 06:30 06:30 06:30 WBC 10.3 (3.8-10.6) k/uL RBC 5.50 (4.30-5.90) m/uL Hgb 16.2 (13.0-17.5) gm/dL Hct 47.3 (39.0-53.0) % MCV 85.9 (80.0-100.0) fL MCH 29.3 (25.0-35.0) pg MCHC 34.2 (31.0-37.0) g/dL RDW 12.6 (11.5-15.5) % Plt Count 268 (150-450) k/uL Neutrophils % 53 % Lymphocytes % 29 % Monocytes % 8 % Eosinophils % 6 % Basophils % 1 % Neutrophils # 5.5 (1.3-7.7) k/uL Lymphocytes # 3.0 (1.0-4.8) k/uL Monocytes # 0.8 (0-1.0) k/uL Eosinophils # 0.6 (0-0.7) k/uL Basophils # 0.1 (0-0.2) k/uL PT 9.4 (9.0-12.0) sec INR 0.9 (<1.2) APTT 21.6 L (22.0-30.0) sec D-Dimer <0.17 (<0.60) mg/L FEU Sodium 137 (137-145) mmol/L Potassium 4.4 (3.5-5.1) mmol/L Chloride 104 (98-107) mmol/L Carbon Dioxide 25 (22-30) mmol/L Anion Gap 8 mmol/L BUN 19 (9-20) mg/dL Creatinine 0.74 (0.66-1.25) mg/dL Est GFR (CKD-EPI)AfAm >90 (>60 ml/min/1.73 sqM) Est GFR (CKD-EPI)NonAf >90 (>60 ml/min/1.73 sqM) Glucose 118 H (74-99) mg/dL Plasma Lactic Acid Louis (0.7-2.0) mmol/L Calcium 10.0 (8.4-10.2) mg/dL Magnesium 2.0 (1.6-2.3) mg/dL Total Bilirubin 0.8 (0.2-1.3) mg/dL AST 41 (17-59) U/L ALT 38 (4-49) U/L Alkaline Phosphatase 72 (38-126) U/L Troponin I (0.000-0.034) ng/mL NT-Pro-B Natriuret Pep pg/mL Total Protein 7.4 (6.3-8.2) g/dL Albumin 4.3 (3.5-5.0) g/dL 07/08/19 07/08/19 07/08/19 Range/Units 06:30 06:30 06:30 WBC (3.8-10.6) k/uL RBC (4.30-5.90) m/uL Hgb (13.0-17.5) gm/dL Hct (39.0-53.0) % MCV (80.0-100.0) fL MCH (25.0-35.0) pg MCHC (31.0-37.0) g/dL RDW (11.5-15.5) % Plt Count (150-450) k/uL Neutrophils % % Lymphocytes % % Monocytes % % Eosinophils % % Basophils % % Neutrophils # (1.3-7.7) k/uL Lymphocytes # (1.0-4.8) k/uL Monocytes # (0-1.0) k/uL Eosinophils # (0-0.7) k/uL Basophils # (0-0.2) k/uL PT (9.0-12.0) sec INR (<1.2) APTT (22.0-30.0) sec D-Dimer (<0.60) mg/L FEU Sodium (137-145) mmol/L Potassium (3.5-5.1) mmol/L Chloride (98-107) mmol/L Carbon Dioxide (22-30) mmol/L Anion Gap mmol/L BUN (9-20) mg/dL Creatinine (0.66-1.25) mg/dL Est GFR (CKD-EPI)AfAm (>60 ml/min/1.73 sqM) Est GFR (CKD-EPI)NonAf (>60 ml/min/1.73 sqM) Glucose (74-99) mg/dL Plasma Lactic Acid Louis 1.0 (0.7-2.0) mmol/L Calcium (8.4-10.2) mg/dL Magnesium (1.6-2.3) mg/dL Total Bilirubin (0.2-1.3) mg/dL AST (17-59) U/L ALT (4-49) U/L Alkaline Phosphatase (38-126) U/L Troponin I <0.012 (0.000-0.034) ng/mL NT-Pro-B Natriuret Pep <11 pg/mL Total Protein (6.3-8.2) g/dL Albumin (3.5-5.0) g/dL - EKG Data EKG Comments: Ventricular rate 80 bpm, [place] interval 160 ms, QRS rotation 74 ms, QT/QTC 358/412 ms. This is normal sinus there is no ST elevation or depression noted. EKG was compared to that of 02/17/19, no acute changes. Disposition Clinical Impression: Bloody vomitus, Vomiting, Chronic pain Disposition: HOME SELF-CARE Condition: Good Additional Instructions: Please use medication as discussed. Please follow-up with family doctor in the next 2 days. Please return to emergency room if the symptoms increase or worsen or for any other concerns. Prescriptions: Ondansetron Odt [Zofran Odt] 4 mg PO Q8HR PRN 7 Days #21 tab PRN Reason: Nausea Is patient prescribed a controlled substance at d/c from ED?: No Referrals: None,Stated [Primary Care Provider] - 1-2 days Alex Menjivar DO [STAFF PHYSICIAN] - [facility] - 1-2 days Time of Disposition: 09:09
--- NOTE | 2019-07-08 07:01 | XR ---
EXAMINATION TYPE: XR chest 2V DATE OF EXAM: 07/08/2019 COMPARISON: Chest x-ray April 27, 2018 and older x-rays. CT chest October 02, 2014. HISTORY: Difficulty in breathing. TECHNIQUE: Frontal and lateral views of the chest are obtained. FINDINGS: Somewhat low lung volumes are present. There is no focal air space opacity, pleural effusi on, or pneumothorax seen. The cardiac silhouette size is within normal limits. The osseous structu res are intact. IMPRESSION: No acute cardiopulmonary process. No significant change from prior studies.
[2019-07-08 07:07] LABS: Basophils # (A) 0.1 k/uL (0-0.2); Basophils % (A) 1 %; Eosinophils # (A) 0.6 k/uL (0-0.7); Eosinophils % (A) 6 %; HCT 47.3 % (39.0-53.0); HGB 16.2 gm/dL (13.0-17.5); Lymphocytes % (A) 29 %; MCH 29.3 pg (25.0-35.0); MCHC 34.2 g/dL (31.0-37.0); MCV 85.9 fL (80.0-100.0); Mean Platelet Volume 7.7; Monocytes # (A) 0.8 k/uL (0-1.0); Monocytes % (A) 8 %; Neutrophils # (A) 5.5 k/uL (1.3-7.7); Neutrophils % (A) 53 %; Platelet Count 268 k/uL (150-450); RDW 12.6 % (11.5-15.5); WBC 10.3 k/uL (3.8-10.6)
[2019-07-08 07:21] LABS: ALT 38 U/L (4-49); AST 41 U/L (17-59); African American GFR (CKD) >90 (>60 ml/min/1.73 sqM); Albumin 4.3 g/dL (3.5-5.0); Alkaline Phosphatase 72 U/L (38-126); Anion Gap 8 mmol/L; Blood Urea Nitrogen 19 mg/dL (9-20); Carbon Dioxide 25 mmol/L (22-30); Chloride 104 mmol/L (98-107); Glucose 118 mg/dL (74-99); Non-African American GFR(CKD) >90 (>60 ml/min/1.73 sqM); Potassium 4.4 mmol/L (3.5-5.1); Sodium 137 mmol/L (137-145); Total Bilirubin 0.8 mg/dL (0.2-1.3); Total Protein 7.4 g/dL (6.3-8.2)
[2019-07-08 07:30] LABS: INR 0.9 (<1.2); Prothrombin Time 9.4 sec (9.0-12.0)
[2019-07-08 07:39] LABS: D-Dimer <0.17 mg/L FEU (<0.60); Partial Thromboplastin Time 21.6 sec (22.0-30.0)
[2019-07-08] MEDS ORDERED: HYDROmorphone 0.5 MG/0.5 ML SYRINGE IVP STA (09:08)
[2019-07-08 10:09] VITALS: BP 127/74; PULSE 79; RESP 18
== END 2019-07-08 10:08 | disposition home or self-care (01) ==
LOC: EC 06:07
DX: K92.0 Hematemesis (principal); G89.29 Other chronic pain; R06.02 Shortness of breath; R04.2 Hemoptysis; J45.909 Unspecified asthma, uncomplicated; Z87.891 Personal history of nicotine dependence; Z88.0 Allergy status to penicillin; Z88.1 Allergy status to other antibiotic agents; Z88.2 Allergy status to sulfonamides; Z88.5 Allergy status to narcotic agent; Z79.891 Long term (current) use of opiate analgesic; Z79.899 Other long term (current) drug therapy
CPT/HCPCS: 36415; 93005; 85379; 83880; 80053; 83605; 83735; 84484; 85025; 85610; 85730; 71046; 99285; 96374; 96361 ×2; J1170

== ENCOUNTER 2019-07-15 06:17 | Emergency (ER) | payer OTHER ==
[2019-07-15] MEDS ORDERED: KETOROLAC 30 MG/ML 1 ML VIAL IM STA (06:34)
--- NOTE | 2019-07-15 06:50 | XR ---
EXAMINATION TYPE: XR chest 2V DATE OF EXAM: 07/15/2019 COMPARISON: Chest x-ray 1 week earlier and older studies. HISTORY: Difficulty in breathing. TECHNIQUE: Frontal and lateral views of the chest are obtained. FINDINGS: Somewhat low lung volumes redemonstrated. There is no focal air space opacity, pleural effu nicolas, or pneumothorax seen. The cardiac silhouette size is within normal limits. The osseous struc tures are intact. IMPRESSION: No suspicious acute pulmonary process. No significant change from prior.
--- NOTE | 2019-07-15 07:07 | ED ---
General Adult HPI - General Chief complaint: Recheck/Abnormal Lab/Rx Stated complaint: Cough, sob Time Seen by Provider: 07/15/19 06:33 Source: patient, RN notes reviewed Mode of arrival: ambulatory Limitations: no limitations - History of Present Illness Initial comments: [age]-year-old male presents to the emergency department for a chief complaint of cough. Patient states he has had a cough for one week. States it is to the point where it hurts in his left lower ribs to cough. Patient has had episodes of blood tinged sputum. Patient is not sure if he has had fevers but has been taking Tylenol. He does have mild shortness of breath. Denies smoking history. However patient does have a history of asthma and is out of his nebulizer medication and inhaler. Patient is not on any steroids.Patient has no other complaints at this time including shortness of breath, chest pain, abdominal pain, nausea or vomiting, headache, or visual changes. - Related Data Home Medications Medication Instructions Recorded Confirmed Ibuprofen [Motrin Ib] 400 mg PO Q6H PRN 12/14/17 04/26/18 Acetaminophen Tab [Tylenol] 650 mg PO Q8H 04/26/18 04/26/18 Albuterol Nebulized [Ventolin 2.5 mcg PO Q8HR 04/26/18 04/26/18 Nebulized] Menthol [[place]] 7.5 mg PO DIRECTED 04/26/18 04/26/18 Previous Rx's Medication Instructions Recorded Azithromycin [Zithromax Z-pack] 0 mg PO DIRECTED #6 tab 04/27/18 Ondansetron Odt [Zofran ODT] 4 mg PO Q8HR PRN #20 tab 04/27/18 predniSONE 50 mg PO DAILY #5 tab 04/27/18 Ciprofloxacin Ophth Soln [Ciloxan 1 drops LEFT EYE Q4HR 5 Days #1 10/10/18 0.3% Ophth Soln] bottle Clindamycin HCl 300 mg PO Q6HR #40 cap 02/05/19 Ibuprofen [Motrin] 600 mg PO Q8HR PRN #30 tab 02/05/19 Azithromycin [Zithromax Z-pack] 0 mg PO DIRECTED #6 tab 02/17/19 Ondansetron Odt [Zofran Odt] 4 mg PO Q8HR PRN 7 Days #21 tab 07/08/19 Ipratropium-Albuterol Nebulize 3 ml INHALATION Q4H PRN #20 neb 07/15/19 [Duoneb 0.5 mg-3 mg/3 ml Soln] predniSONE 50 mg PO DAILY #5 tablet 07/15/19 Allergies Allergy/AdvReac Type Severity Reaction Status Date / Time erythromycin base Allergy Dyspnea Verified 07/15/19 06:31 [Erythromycin Base] morphine Allergy Hallucinati Verified 07/15/19 06:31 ons Penicillins Allergy Dyspnea Verified 07/15/19 06:31 sulfamethoxazole Allergy Dyspnea Verified 07/15/19 06:31 [From ] trimethoprim [From ] Allergy Dyspnea Verified 07/15/19 06:31 Review of Systems ROS Statement: Those systems with pertinent positive or pertinent negative responses have been documented in the HPI. ROS Other: All systems not noted in ROS Statement are negative. Past Medical History Past Medical History: Asthma Additional Past Medical History / Comment(s): back pain, meningitis as History of Any Multi-Drug Resistant Organisms: None Reported Past Surgical History: Heart Catheterization, Orthopedic Surgery Additional Past Surgical History / Comment(s): heart cath no stents, left thumb surgery, ESWL Past Psychological History: ADD/ADHD, Bipolar Smoking Status: Former smoker Past Alcohol Use History: None Reported Past Drug Use History: None Reported General Exam Limitations: no limitations General appearance: alert, in no apparent distress Head exam: Present: atraumatic, normocephalic, normal inspection Eye exam: Present: normal appearance, PERRL, EOMI. Absent: scleral icterus, conjunctival injection, periorbital swelling ENT exam: Present: normal exam, mucous membranes moist Neck exam: Present: normal inspection, full ROM. Absent: tenderness, meningismus, lymphadenopathy Respiratory exam: Present: chest wall tenderness (tenderness noted to the left lower anterior ribs), decreased breath sounds (minimally diminished breath sounds bilat). Absent: respiratory distress, wheezes, rales, rhonchi, stridor Cardiovascular Exam: Present: regular rate, normal rhythm, normal heart sounds. Absent: systolic murmur, diastolic murmur, rubs, gallop, clicks GI/Abdominal exam: Present: soft, normal bowel sounds. Absent: distended, tenderness, guarding, rebound, rigid Neurological exam: Present: alert Course Vital Signs 07/15/19 07/15/19 06:27 06:44 Temperature 98.0 F Pulse Rate 87 Respiratory 16 18 Rate Blood Pressure 123/79 O2 Sat by Pulse 98 Oximetry Medical Decision Making - Medical Decision Making Vitals are stable. Patient is 90% on room air. Lung sounds are mildly diminished however no significant wheezing noted. No respiratory distress. Chest XR was ordered which showed no suspicious acute pulmonary process. No significant change from prior.Influenza is negative. Patient was started on steroids given his history of asthma. His albuterol was refilled for his nebulizer. He will follow up with primary care and return if he has any worsening symptoms. I discussed this case with attending Dr. Stafford who agrees with this assessment and treatment plan. - Lab Data Lab Results 07/15/19 Range/Units 06:34 Influenza Type A RNA Not Detected (Not Detectd) Influenza Type B (PCR) Not Detected (Not Detectd) Disposition Clinical Impression: Cough Disposition: HOME SELF-CARE Condition: Good Instructions (If sedation given, give patient instructions): Cold Symptoms (ED) Additional Instructions: Please take steroid as directed. Use nebulizer up to every 4 hours. Follow-up with primary care in 1-2 days. Return to the emergency department if you have any worsening symptoms. Prescriptions: Ipratropium-Albuterol Nebulize [Duoneb 0.5 mg-3 mg/3 ml Soln] 3 ml INHALATION Q4H PRN #20 neb PRN Reason: Shortness Of Breath predniSONE 50 mg PO DAILY #5 tablet Is patient prescribed a controlled substance at d/c from ED?: No Referrals: Leni Jewell MD [REFERRING] - 1-2 days Time of Disposition: 07:40
[2019-07-15 07:56] VITALS: BP 140/86; PULSE 64; RESP 19; TEMP 98.6
== END 2019-07-15 07:56 | disposition home or self-care (01) ==
LOC: EC 06:17
DX: R05 Cough (principal); J45.909 Unspecified asthma, uncomplicated; Z88.1 Allergy status to other antibiotic agents; Z88.2 Allergy status to sulfonamides; Z88.5 Allergy status to narcotic agent; Z88.8 Allergy status to other drugs, medicaments and biological substances; Z87.891 Personal history of nicotine dependence; Z79.52 Long term (current) use of systemic steroids; Z79.899 Other long term (current) drug therapy
CPT/HCPCS: 87502; 71046; 99285; 96372; J1885

== ENCOUNTER 2019-11-13 07:33 | Emergency (ER) | payer OTHER ==
[2019-11-13 07:36] VITALS: RESP 18; TEMP 98.2
[2019-11-13] MEDS ORDERED: KETOROLAC 60 MG/2 ML VIAL IM STA (07:54)
[2019-11-13] MEDS ORDERED: ORPHENADRINE 30 MG/ML 2 ML VIAL IM STA (07:54)
--- NOTE | 2019-11-13 07:59 | ED ---
Back Pain HPI - General Chief Complaint: Back Pain/Injury Stated Complaint: back & groin pain Time Seen by Provider: 11/13/19 07:37 Source: patient, RN notes reviewed, old records reviewed Limitations: no limitations - History of Present Illness Initial Comments: Patient is a 39-year-old male presents emergency department today with chief complaint of back strain for the past week. Patient states he now developed some groin pain and pain shooting down the right leg. Patient states that he's had no changes in urination. He denies any fevers or chills. He denies changes in stools. He states had a previous cardiac catheterization on the right leg and feels some pain from that site in the groin. - Related Data Home Medications Medication Instructions Recorded Confirmed Ibuprofen [Motrin Ib] 400 mg PO Q6H PRN 12/14/17 04/26/18 Acetaminophen Tab [Tylenol] 650 mg PO Q8H 04/26/18 04/26/18 Albuterol Nebulized [Ventolin 2.5 mcg PO Q8HR 04/26/18 04/26/18 Nebulized] Menthol [[place]] 7.5 mg PO DIRECTED 04/26/18 04/26/18 Previous Rx's Medication Instructions Recorded Azithromycin [Zithromax Z-pack] 0 mg PO DIRECTED #6 tab 04/27/18 Ondansetron Odt [Zofran ODT] 4 mg PO Q8HR PRN #20 tab 04/27/18 predniSONE 50 mg PO DAILY #5 tab 04/27/18 Ciprofloxacin Ophth Soln [Ciloxan 1 drops LEFT EYE Q4HR 5 Days #1 10/10/18 0.3% Ophth Soln] bottle Clindamycin HCl 300 mg PO Q6HR #40 cap 02/05/19 Ibuprofen [Motrin] 600 mg PO Q8HR PRN #30 tab 02/05/19 Azithromycin [Zithromax Z-pack] 0 mg PO DIRECTED #6 tab 02/17/19 Ondansetron Odt [Zofran Odt] 4 mg PO Q8HR PRN 7 Days #21 tab 07/08/19 Ipratropium-Albuterol Nebulize 3 ml INHALATION Q4H PRN #20 neb 07/15/19 [Duoneb 0.5 mg-3 mg/3 ml Soln] predniSONE 50 mg PO DAILY #5 tablet 07/15/19 Cyclobenzaprine [Flexeril] 10 mg PO TID #15 tab 11/13/19 Dexamethasone 0.75 mg PO DAILY #12 tab 11/13/19 Ibuprofen [Motrin] 600 mg PO Q6HR PRN #20 tab 11/13/19 Allergies Allergy/AdvReac Type Severity Reaction Status Date / Time erythromycin base Allergy Dyspnea Verified 07/15/19 06:31 [Erythromycin Base] morphine Allergy Hallucinati Verified 07/15/19 06:31 ons Penicillins Allergy Dyspnea Verified 07/15/19 06:31 sulfamethoxazole Allergy Dyspnea Verified 07/15/19 06:31 [From Decra] trimethoprim [From ] Allergy Dyspnea Verified 07/15/19 06:31 Review of Systems ROS Statement: Those systems with pertinent positive or pertinent negative responses have been documented in the HPI. ROS Other: All systems not noted in ROS Statement are negative. Past Medical History Past Medical History: Asthma Additional Past Medical History / Comment(s): back pain, meningitis as History of Any Multi-Drug Resistant Organisms: None Reported Past Surgical History: Heart Catheterization, Orthopedic Surgery Additional Past Surgical History / Comment(s): heart cath no stents, left thumb surgery, ESWL Past Psychological History: ADD/ADHD, Bipolar Smoking Status: Never smoker Past Alcohol Use History: Occasional Past Drug Use History: None Reported General Exam - General Exam Comments Initial Comments: 39-year-old male. Alert and oriented 3. Limitations: no limitations General appearance: alert, in no apparent distress Head exam: Present: atraumatic, normocephalic, normal inspection Eye exam: Present: normal appearance, PERRL, EOMI. Absent: scleral icterus, conjunctival injection, periorbital swelling ENT exam: Present: normal exam, normal oropharynx, mucous membranes moist, TM's normal bilaterally Neck exam: Present: normal inspection. Absent: tenderness, meningismus, lymphadenopathy Respiratory exam: Present: normal lung sounds bilaterally. Absent: respiratory distress, wheezes, rales, rhonchi, stridor Cardiovascular Exam: Present: regular rate, normal rhythm, normal heart sounds. Absent: systolic murmur, diastolic murmur, rubs, gallop, clicks GI/Abdominal exam: Present: soft, normal bowel sounds. Absent: distended, tenderness, guarding, rebound, rigid Extremities exam: Present: normal inspection, full ROM, normal capillary refill, other (And Patient has probable tenderness in the right groin. No palpable masses. No rash or skin changes.). Absent: tenderness, pedal edema, joint swelling, calf tenderness Back exam: Present: normal inspection, full ROM, tenderness (lumbar spinal tenderness), other (tenderness in R groin, no skin chnages or bulges) Neurological exam: Present: alert, oriented X3, CN II-XII intact Psychiatric exam: Present: normal affect, normal mood Skin exam: Present: warm, dry, intact, normal color. Absent: rash Course Vital Signs 11/13/19 07:34 Temperature 98.2 F Pulse Rate 69 Respiratory 18 Rate Blood Pressure 131/82 O2 Sat by Pulse 97 Oximetry Medical Decision Making - Medical Decision Making Pleasant 39-year-old male percent scars from today complaints of lower back pain for the past 3 days with radiation down the right leg and into the right groin. Pain is reproducible with movement and palpation to the right groin and upper thigh. He also has some lumbar spinal tenderness. Patient's labs were reviewed the urinalysis showed no change in urine or signs of infection. Patient's lumbar spine shows degenerative changes. Is given IM Toradol and Norflex. Discussed likely muscular skeletal origin and x-ray of the back showed degenerative disc disease. Endocrine ultrasound was reviewed and showed benign- appearing lymph nodes. No other masses noted. Patient informed of these results. Discussed discharged with anti-inflammatory medication and muscle relaxers and short course of pain medicine. Discussed return parameters. Given a note for work. - Lab Data Lab Results 11/13/19 Range/Units 08:09 Urine Color Yellow Urine Appearance Clear (Clear) Urine pH 6.0 (5.0-8.0) Ur Specific [place] 1.019 (1.001-1.035) Urine Protein Negative (Negative) Urine Glucose (UA) Negative (Negative) Urine Ketones Negative (Negative) Urine Blood Negative (Negative) Urine Nitrite Negative (Negative) Urine Bilirubin Negative (Negative) Urine Urobilinogen <2.0 (<2.0) mg/dL Ur Leukocyte Esterase Negative (Negative) - Radiology Data Radiology results: report reviewed Patient's THE GROIN SHOWS BENIGN LYMPH NODES. HISTORY SHOWS MILD DEGENERATIVE CHANGES OF THE DISKS IN THE LUMBAR SPINE. MRI MAY BE OF BENEFIT. Disposition Clinical Impression: Lumbar strain, Sciatica, Groin strain Disposition: HOME SELF-CARE Condition: Good Instructions (If sedation given, give patient instructions): Sciatica (ED) Additional Instructions: Please use medication as discussed. Please follow up with family doctor if symptoms have not improved over the next two days. Please return to the emergency room if your symptoms increase or worsen or for any other concerns. Prescriptions: Dexamethasone 0.75 mg PO DAILY #12 tab Cyclobenzaprine [Flexeril] 10 mg PO TID #15 tab Ibuprofen [Motrin] 600 mg PO Q6HR PRN #20 tab PRN Reason: Pain Is patient prescribed a controlled substance at d/c from ED?: No Referrals: Madiha Khan MD [Primary Care Provider] - 1-2 days Time of Disposition: 09:12
[2019-11-13 08:26] LABS: Appearance,Urine Clear (Clear); Bilirubin,Urine Negative (Negative); Blood,Urine Negative (Negative); Color,Urine Yellow; Glucose,Urine (UA) Negative (Negative); Ketones,Urine Negative (Negative); Leukocyte Esterase,Urine Negative (Negative); Nitrite,Urine Negative (Negative); Protein,Urine Negative (Negative); Specific Gravity,Urine 1.019 (1.001-1.035); Urobilinogen,Urine <2.0 mg/dL (<2.0)
--- NOTE | 2019-11-13 08:31 | XR ---
Lumbar spine HISTORY: Pain 3 views the lumbar spine Correlation to prior exam 09/13/2009 No interval change. Lumbar vertebral bodies show stable height, alignment, and bone mineralization. M ild loss of disc height present L5-S1. IMPRESSION: May be mild degenerative disc change. Lumbar MRI may be of benefit.
--- NOTE | 2019-11-13 08:53 | US ---
EXAMINATION TYPE: US groin RT DATE OF EXAM: 11/13/2019 COMPARISON: NONE CLINICAL HISTORY: back pain, lumbar tenderness. right groin pain x 1 day, no injury, no palpable Soft tissue scan of right groin produced multiple lymph nodes at site of pain, largest measured 2.4 x 1.6 x 0.9cm, fatty hilum seen with vascularity noted. No obvious abnormality seen with or without valsalva maneuver. IMPRESSION: Benign lymph nodes right groin
[2019-11-13 09:32] VITALS: BP 125/73; PULSE 81
== END 2019-11-13 09:30 | disposition home or self-care (01) ==
LOC: EC 07:33
DX: S39.011A Strain of muscle, fascia and tendon of abdomen, initial encounter (principal); S39.012A Strain of muscle, fascia and tendon of lower back, initial encounter; M47.816 Spondylosis without myelopathy or radiculopathy, lumbar region; J45.909 Unspecified asthma, uncomplicated; Z79.51 Long term (current) use of inhaled steroids; Z88.0 Allergy status to penicillin; Z88.1 Allergy status to other antibiotic agents; Z88.5 Allergy status to narcotic agent; Z88.2 Allergy status to sulfonamides; Z95.5 Presence of coronary angioplasty implant and graft; X50.9XXA Other and unspecified overexertion or strenuous movements or postures, initial encounter
CPT/HCPCS: 81003; 72100; 76882; 99285; 96372 ×2; J2360; J1885

== ENCOUNTER 2020-01-07 11:30 | Observation (INO) | payer OTHER ==
--- NOTE | 2020-01-07 12:46 | ED ---
General Adult HPI <Vickey Valera - Last Filed: 01/07/20 13:46> - General Source: patient Mode of arrival: ambulatory Limitations: no limitations <Barbara Peng - Last Filed: 01/07/20 19:19> - General Chief complaint: Neuro Symptoms/Deficit Stated complaint: Right side numbness Time Seen by Provider: 01/07/20 12:10 - History of Present Illness Initial comments: 39-year-old male presents to the emergency Department with complaints of numbness to the right side of his body. States right lower extremity and right upper extremity developed numbness on Sunday night and have persisted since. States the right side of his face became numb this morning and was accompanied by right sided vision changes that he describes as blurriness. Also states the right side of his mouth feels numb as if it has been injected with lidocaine. Complains of posterior headache that is sharp in nature. Patient denies any speech difficulties, swallowing problems, and ambulatory difficulties. 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 Patient denies any recent rash, fever, chills, cough, shortness of breath, chest pain, abdominal pain, nausea, vomiting, diarrhea, constipation, hematuria, dysuria, urinary urgency, urinary frequency, or any other complaints. (Barbara Peng) - Related Data Home Medications Medication Instructions Recorded Confirmed Ibuprofen [Motrin Ib] 800 mg PO Q6H PRN 12/14/17 01/07/20 Allergies Allergy/AdvReac Type Severity Reaction Status Date / Time erythromycin base Allergy Dyspnea Verified 01/07/20 14:04 [Erythromycin Base] Penicillins Allergy Dyspnea Verified 01/07/20 14:04 sulfamethoxazole Allergy Dyspnea Verified 01/07/20 14:04 [From Septra] trimethoprim [From Decra] Allergy Dyspnea Verified 01/07/20 14:04 morphine AdvReac Hallucinati Verified 01/07/20 14:04 ons Review of Systems ROS Other: All systems not noted in ROS Statement are negative. <Vickey Valera - Last Filed: 01/07/20 13:46> ROS Other: All systems not noted in ROS Statement are negative. <Barbara Peng - Last Filed: 01/07/20 19:19> ROS Statement: Those systems with pertinent positive or pertinent negative responses have been documented in the HPI. Past Medical History Past Medical History: Asthma Additional Past Medical History / Comment(s): back pain, meningitis as infant History of Any Multi-Drug Resistant Organisms: None Reported Past Surgical History: Heart Catheterization, Orthopedic Surgery Additional Past Surgical History / Comment(s): heart cath no stents, left thumb surgery, ESWL Past Psychological History: ADD/ADHD, Bipolar Smoking Status: Former smoker Past Alcohol Use History: Occasional Past Drug Use History: None Reported - Past Family History Mother Family Medical History: Hypertension <Barbara Peng M - Last Filed: 01/07/20 19:19> General Exam Limitations: no limitations General appearance: alert, in no apparent distress, other (Well-developed, well- nourished in no acute distress. Presenting vital signs temperature 98.6 F, pulse 70, respirations 18, blood pressure 139/84, pulse ox 96% on room air.) Head exam: Present: atraumatic, normocephalic, normal inspection Eye exam: Present: normal appearance, PERRL, EOMI. Absent: scleral icterus, conjunctival injection, periorbital swelling Respiratory exam: Present: normal lung sounds bilaterally. Absent: respiratory distress, wheezes, rales, rhonchi, stridor Cardiovascular Exam: Present: regular rate, normal rhythm, normal heart sounds. Absent: systolic murmur, diastolic murmur, rubs, gallop, clicks GI/Abdominal exam: Present: soft, normal bowel sounds. Absent: distended, tenderness, guarding, rebound, rigid Extremities exam: Present: normal inspection, full ROM, normal capillary refill. Absent: tenderness, pedal edema, joint swelling, calf tenderness Neurological exam: Present: alert, oriented X3 Expanded Patient oriented to: Present: person, place, time Speech: Present: fluid speech Cranial nerves: EOM's Intact: Normal, Tongue Deviation: Normal Sensory exam: Upper Extremity Light Touch: Abnormal Right (reports dminished sensation in right compared to left), Lower Extremity Light Touch: Abnormal Right (reports dminished sensation in right compared to left) Motor strength exam: RUE: 4, LUE: 5, RLE: 5, LLE: 5 Eye Response: (4) open spontaneously Motor Response: (6) obeys commands Verbal Response: (5) oriented Teresa Total: 15 Psychiatric exam: Present: normal affect, normal mood Skin exam: Present: warm, dry, intact, normal color. Absent: rash <Barbara Peng - Last Filed: 01/07/20 19:19> Course <Vickey Valera - Last Filed: 01/07/20 13:46> Vital Signs 01/07/20 01/07/20 11:33 14:10 Temperature 98.6 F Pulse Rate 70 66 Respiratory 18 18 Rate Blood Pressure 139/84 137/97 O2 Sat by Pulse 96 100 Oximetry - Reevaluation(s) Reevaluation #1: 01/07/20 13:46 DIRECTOR OF TEACHER EDUCATION supervision: I did personally evaluate this case patient does present with complaints of numbness to his face and some trips to the extremity. Initial workup is negative the patient be admitted for neurological evaluation. I did d iscuss case with Dr. Carnes (Vickey Valera) Medical Decision Making - Lab Data Result diagrams: 01/07/20 12:40 01/07/20 12:40 <Vickey Valera - Last Filed: 01/07/20 13:46> - Lab Data Result diagrams: 01/07/20 12:40 01/07/20 12:40 - Radiology Data Radiology results: report reviewed, image reviewed <Barbara Peng - Last Filed: 01/07/20 19:19> - Medical Decision Making 39-year-old male patient presented to the emergency department today for evaluation of right-sided facial numbness, numbness of the right arm and right leg. Physical examination did reveal a right-sided arm drift. Also decreased sensation on the right side. CT was negative. Labs are unremarkable. Patient will be admitted to the hospital for possible CVA with evaluation by neurology. I did discuss findings and results with the patient. He is agreeable. (Barbara Peng) - Lab Data Lab Results 01/07/20 01/07/20 01/07/20 Range/Units 12:40 12:40 12:40 WBC 8.7 (3.8-10.6) k/uL RBC 5.56 (4.30-5.90) m/uL Hgb 15.8 (13.0-17.5) gm/dL Hct 48.3 (39.0-53.0) % MCV 87.0 (80.0-100.0) fL MCH 28.4 (25.0-35.0) pg MCHC 32.6 (31.0-37.0) g/dL RDW 13.2 (11.5-15.5) % Plt Count 255 (150-450) k/uL Neutrophils % 59 % Lymphocytes % 27 % Monocytes % 6 % Eosinophils % 5 % Basophils % 1 % Neutrophils # 5.1 (1.3-7.7) k/uL Lymphocytes # 2.3 (1.0-4.8) k/uL Monocytes # 0.5 (0-1.0) k/uL Eosinophils # 0.4 (0-0.7) k/uL Basophils # 0.1 (0-0.2) k/uL PT 9.5 (9.0-12.0) sec INR 0.9 (<1.2) APTT 26.8 (22.0-30.0) sec Sodium 137 (137-145) mmol/L Potassium 4.8 (3.5-5.1) mmol/L Chloride 107 (98-107) mmol/L Carbon Dioxide 21 L (22-30) mmol/L Anion Gap 9 mmol/L BUN 13 (9-20) mg/dL Creatinine 0.74 (0.66-1.25) mg/dL Est GFR (CKD-EPI)AfAm >90 (>60 ml/min/1.73 sqM) Est GFR (CKD-EPI)NonAf >90 (>60 ml/min/1.73 sqM) Glucose 101 H (74-99) mg/dL Calcium 9.9 (8.4-10.2) mg/dL Total Bilirubin 0.9 (0.2-1.3) mg/dL AST 33 (17-59) U/L ALT 30 (4-49) U/L Alkaline Phosphatase 66 (38-126) U/L Troponin I (0.000-0.034) ng/mL Total Protein 7.7 (6.3-8.2) g/dL Albumin 4.6 (3.5-5.0) g/dL 01/07/20 Range/Units 12:40 WBC (3.8-10.6) k/uL RBC (4.30-5.90) m/uL Hgb (13.0-17.5) gm/dL Hct (39.0-53.0) % MCV (80.0-100.0) fL MCH (25.0-35.0) pg MCHC (31.0-37.0) g/dL RDW (11.5-15.5) % Plt Count (150-450) k/uL Neutrophils % % Lymphocytes % % Monocytes % % Eosinophils % % Basophils % % Neutrophils # (1.3-7.7) k/uL Lymphocytes # (1.0-4.8) k/uL Monocytes # (0-1.0) k/uL Eosinophils # (0-0.7) k/uL Basophils # (0-0.2) k/uL PT (9.0-12.0) sec INR (<1.2) APTT (22.0-30.0) sec Sodium (137-145) mmol/L Potassium (3.5-5.1) mmol/L Chloride (98-107) mmol/L Carbon Dioxide (22-30) mmol/L Anion Gap mmol/L BUN (9-20) mg/dL Creatinine (0.66-1.25) mg/dL Est GFR (CKD-EPI)AfAm (>60 ml/min/1.73 sqM) Est GFR (CKD-EPI)NonAf (>60 ml/min/1.73 sqM) Glucose (74-99) mg/dL Calcium (8.4-10.2) mg/dL Total Bilirubin (0.2-1.3) mg/dL AST (17-59) U/L ALT (4-49) U/L Alkaline Phosphatase (38-126) U/L Troponin I <0.012 (0.000-0.034) ng/mL Total Protein (6.3-8.2) g/dL Albumin (3.5-5.0) g/dL 01/07/20 12:51 ECG performed at 1159. Ventricular rate 65, [place] interval 154, QRS duration 80, QT/QTc 392/407 interpreted as normal sinus rhythm, normal ECG. (Barbara Peng) - Radiology Data CT brain was obtained. Report was reviewed in its entirety. Impression by Dr. Coles shows no acute intracranial process. Given the patient's symptoms consider follow-up MRI. (Barbara Peng) Disposition <Vickey Valera - Last Filed: 01/07/20 13:46> Decision to Admit Reason: Admit from EC Decision Date: 01/07/20 Decision Time: 13:47 <Barbara Peng - Last Filed: 01/07/20 19:19> Clinical Impression: CVA (cerebral vascular accident) Disposition: ADMITTED IP TO THIS [facility] Condition: Serious
[2020-01-07 12:51] LABS: Basophils # (A) 0.1 k/uL (0-0.2); Basophils % (A) 1 %; Eosinophils # (A) 0.4 k/uL (0-0.7); Eosinophils % (A) 5 %; HCT 48.3 % (39.0-53.0); HGB 15.8 gm/dL (13.0-17.5); Lymphocytes # (A) 2.3 k/uL (1.0-4.8); Lymphocytes % (A) 27 %; MCH 28.4 pg (25.0-35.0); MCHC 32.6 g/dL (31.0-37.0); Mean Platelet Volume 7.3; Monocytes # (A) 0.5 k/uL (0-1.0); Monocytes % (A) 6 %; Neutrophils # (A) 5.1 k/uL (1.3-7.7); Neutrophils % (A) 59 %; Platelet Count 255 k/uL (150-450); RBC 5.56 m/uL (4.30-5.90); RDW 13.2 % (11.5-15.5); WBC 8.7 k/uL (3.8-10.6)
[2020-01-07 13:01] LABS: ALT 30 U/L (4-49); AST 33 U/L (17-59); African American GFR (CKD) >90 (>60 ml/min/1.73 sqM); Albumin 4.6 g/dL (3.5-5.0); Alkaline Phosphatase 66 U/L (38-126); Anion Gap 9 mmol/L; Blood Urea Nitrogen 13 mg/dL (9-20); Calcium 9.9 mg/dL (8.4-10.2); Carbon Dioxide 21 mmol/L (22-30); Chloride 107 mmol/L (98-107); Glucose 101 mg/dL (74-99); Non-African American GFR(CKD) >90 (>60 ml/min/1.73 sqM); Potassium 4.8 mmol/L (3.5-5.1); Sodium 137 mmol/L (137-145); Total Bilirubin 0.9 mg/dL (0.2-1.3); Total Protein 7.7 g/dL (6.3-8.2)
[2020-01-07 13:11] LABS: INR 0.9 (<1.2); Partial Thromboplastin Time 26.8 sec (22.0-30.0); Prothrombin Time 9.5 sec (9.0-12.0)
--- NOTE | 2020-01-07 13:30 | CT ---
EXAMINATION TYPE: CT brain wo con DATE OF EXAM: 01/07/2020 COMPARISON: 09/08/2014 HISTORY: Right-sided numbness CT DLP: 1098.4 mGycm. Automated Exposure Control for Dose Reduction was Utilized. TECHNIQUE: CT scan of the head is performed without contrast. FINDINGS: Stable calcification along the posterior margin of the fourth ventricle in the left. Ventricular system is midline with no mass effect or midline shift. No acute hemorrhage. Changes of mild chronic sinusitis noted. Mastoid air cells are clear. Orbits are symmetric. Craniocer vical junction maintained. IMPRESSION: 1. No acute intracranial process. Given the patient's symptoms consider follow-up MRI.
[2020-01-07] MEDS ORDERED: NALOXONE 0.4 MG/ML 1 ML VIAL IV PRN (13:43)
[2020-01-07] MEDS ORDERED: ASPIRIN 81 MG PO STA (13:46)
--- NOTE | 2020-01-07 16:52 | P.HPIM ---
History of Present Illness 39-year-old male came in emesis 1 with complaints of numbness and tingling on the right side of the body and patient started having these symptoms on and off and the patient today started having tingling numbness and numbness in the right side of the face along with some blurriness in the on the right side because of which patient came to ER. Patient feels like patient has lidocaine in his mouth predominantly in the right side. Patient denied any headache patient denied any seizure-like activity denied any history of migraine denied any fever chills denied any other weakness any other focal deficits speech abnormalities. CT of the head was obtained which did not show any acute infarct. Review of Systems REVIEW OF SYSTEMS: CONSTITUTIONAL: No fever, no malaise, no fatigue. HEENT: No recent visual problems or hearing problems. Denied any sore throat. CARDIOVASCULAR: No chest pain, orthopnea, PND, no palpitations, no syncope. PULMONARY: No shortness of breath, no cough, no hemoptysis. GASTROINTESTINAL: No diarrhea, no nausea, no vomiting, no abdominal pain. NEUROLOGICAL: As mentioned in HPI HEMATOLOGICAL: Denies any bleeding or petechiae. GENITOURINARY: Denies any burning micturition, frequency, or urgency. MUSCULOSKELETAL/RHEUMATOLOGICAL: Denies any joint pain, swelling, or any muscle pain. ENDOCRINE: Denies any polyuria or polydipsia. The rest of the 14-point review of systems is negative. Past Medical History Past Medical History: Asthma Additional Past Medical History / Comment(s): back pain, meningitis as infant History of Any Multi-Drug Resistant Organisms: None Reported Past Surgical History: Heart Catheterization, Orthopedic Surgery Additional Past Surgical History / Comment(s): heart cath no stents, left thumb surgery, ESWL Past Psychological History: ADD/ADHD, Bipolar Smoking Status: Former smoker Past Alcohol Use History: Occasional Past Drug Use History: None Reported Medications and Allergies Home Medications Medication Instructions Recorded Confirmed Type Ibuprofen [Motrin Ib] 800 mg PO Q6H PRN 12/14/17 01/07/20 History Allergies Allergy/AdvReac Type Severity Reaction Status Date / Time erythromycin base Allergy Dyspnea Verified 01/07/20 14:04 [Erythromycin Base] Penicillins Allergy Dyspnea Verified 01/07/20 14:04 sulfamethoxazole Allergy Dyspnea Verified 01/07/20 14:04 [From Septra] trimethoprim [From ] Allergy Dyspnea Verified 01/07/20 14:04 morphine AdvReac Hallucinati Verified 01/07/20 14:04 ons Physical Exam Vitals: Vital Signs Temp Pulse Resp BP Pulse Ox 01/07/20 14:10 66 18 137/97 100 01/07/20 11:33 98.6 F 70 18 139/84 96 Intake and Output 01/07/20 01/07/20 01/07/20 06:59 14:59 22:59 Other: Weight 108.862 kg PHYSICAL EXAMINATION: GENERAL: The patient is alert and oriented x3, not in any acute distress. Well developed, well nourished. HEENT: Pupils are round and equally reacting to light. EOMI. No scleral icterus. No conjunctival pallor. Normocephalic, atraumatic. No pharyngeal erythema. No thyromegaly. CARDIOVASCULAR: S1 and S2 present. No murmurs, rubs, or gallops. PULMONARY: Chest is clear to auscultation, no wheezing or crackles. ABDOMEN: Soft, nontender, nondistended, normoactive bowel sounds. No palpable organomegaly. MUSCULOSKELETAL: No joint swelling or deformity. EXTREMITIES: No cyanosis, clubbing, or pedal edema. NEUROLOGICAL: Gross neurological examination did not reveal any focal deficits. Did not test sensory system SKIN: No rashes. Results CBC & Chem 7: 01/07/20 12:40 01/07/20 12:40 Labs: Abnormal Lab Results - Last 24 Hours (Table) 01/07/20 Range/Units 12:40 Carbon Dioxide 21 L (22-30) mmol/L Glucose 101 H (74-99) mg/dL Assessment and Plan Plan: -Possible cerebral vascular accident: Patient has sensory deficits by history neurology was consulted concerning patient's symptomatology a lot and MRI of the brain without contrast along with a carotid Doppler, echocardiogram and a lipid panel. Patient was started on aspirin. -History of bipolar disorder not on any medications at this time -History of asthma not in acute exacerbation DVT prophylaxis: Early ambulation
--- NOTE | 2020-01-07 18:10 | US ---
EXAMINATION TYPE: US carotid duplex BILAT DATE OF EXAM: 01/07/2020 COMPARISON: NONE CLINICAL HISTORY: CVA. EXAM MEASUREMENTS: RIGHT: Peak Systolic Velocity (PSV) cm/sec ----- Right CCA: 78.7 ----- Right ICA: 78.7 ----- Right ECA: 103 ICA/CCA ratio: 1.0 RIGHT: End Diastole cm/sec ----- Right CCA: 18.9 ----- Right ICA: 20.9 ----- Right ECA: 13.3 LEFT: Peak Systolic Velocity (PSV) cm/sec ----- Left CCA: 74.6 ----- Left ICA: 97.0 ----- Left ECA: 10.9 ICA/CCA ratio: 1.31 LEFT: End Diastole cm/sec ----- Left CCA: 17.2 ----- Left ICA: 38.4 ----- Left ECA: 10.9 VERTEBRALS (direction of flow): Right Vertebral: Antegrade Left Vertebral: Antegrade Rhythm: Normal Aiken scale images show no significant plaque in carotid bulb level. Velocity measurements and ratios in visualized portion of both internal carotid arteries is within normal limits. IMPRESSION: No hemodynamically significant stenosis seen in either internal carotid artery. Criteria for Assigning % of Stenosis / Diameter reduction (Estimation based on the indirect measurements of the internal carotid artery velocities (ICA PSV). 1. Normal (no stenosis)=ICA PSV < 125 cm/s: ratio < 2.0: ICA EDV<40 cm/s. 2. Less than 50% stenosis=ICA PSV < 125 cm/s: ratio < 2.0: ICA EDV<40 cm/s. 3. 50 to 69% stenosis=ICA PSV of 125 to 230 cm/s: ration 2.0 ? 4.0: ICA EDV 40-100 cm/s. 4. Greater than 70% stenosis to near occlusion= ICA PSV > 230 cm/s: ratio > 4.0: ICA EDV > 100 cm/s. 5. Near occlusion= ICA PSV velocities may be low or undetectable: variable ratio and ICA EDV. 6. Total occlusion=unable to detect flow.
--- NOTE | 2020-01-07 19:09 | P.CNNES ---
History of Present Illness Consult date: 01/07/20 Requesting physician: Barbara Peng Reason for Consult: right sided weakness History of Present Illness: This is a 39-year-old right-handed gentleman with the medical history of ?seizure as child, migraine, Sciatica, hypoglycemia, asthma who presented to the emergency department on 01/07/2020 complaining of numbness and tingling in the right side of the body. The patient stated that this past few day around 1:00 am, he was working outside doing some housework and he noticed that his right upper and lower extremity were numb and tingling. Episode lasted for about 1 hour. And he didn't have any other associated weakness visual disturbance headache with this. Then today around 8:00 in the morning what while he is at work he noticed right upper and lower extremity were numb again as well as his right face was numb as well as the tongue was numb and he felt he described it as someone giving him lidocaine. He said that during this episode his right eye would open and close as well as he had the right occipital headache was more than he was 10 and he felt was a sharp headache, he did have photophobia and no phonophobia no nausea no vomiting headache resolved after 30 minutes. He denies any lacrimation of the eyes. He continues to have numbness and tingling over the right side of the face and upper and lower extremity these episodes last for about 30 minutes then they would resolve for an 1 hour then come back again but without any headaches.. He denies any weakness, difficulty getting his words out, slurring the speech, or difficulty swallowing. He denies any history of strokes or TIAs in the past. Of note he states that he was told that he had this many seizures as a child. He usually stares off at episode happened for 10 minutes. They would happen once or twice a week. He had it since time of any continues to have a day. He followed up with a neurologist, Dr. Vidales and he had an EEG done as a child and he was told that he had these many seizures. He was not started on any medications. Mother has history of generalized tonic-clonic seizures. Regarding his headaches he said that the he would have him on both eyes and he feels like his eyes is being pushed in. They happen once a week to once a month. He would have photophobia, phonophobia and he would have to be in a dark quiet place. Denies any nausea or vomiting. He takes [id number] Tylenol with someone minimizes the headache. The headache lasts for 10 minutes to couple hours according to him. Regarding his chronic lower back pain he states that he has a lower back pain that shoots down and he was told he has sciatica. To the hospital consisted of: She'll vital signs of blood pressure of 139/84 with a heart rate of 70, respiratory 18, temperature of 98.6 and the pulse ox of [address] of the head which was reported as no acute intracranial process. Given the patient's symptoms consider follow-up MRI. I personally reviewed the MRI I don't see any acute ischemia hemorrhage or any encephalomalacia. EKG was done and was reported as normal sinus rhythm. Ventricular rate of 65. Review of Systems Review of system: The 12 point system was reviewed and apparent positive and negative per HPI. Past Medical History Past Medical History: Asthma Additional Past Medical History / Comment(s): back pain, meningitis as History of Any Multi-Drug Resistant Organisms: None Reported Past Surgical History: Heart Catheterization, Orthopedic Surgery Additional Past Surgical History / Comment(s): heart cath no stents, left thumb surgery, ESWL Past Psychological History: ADD/ADHD, Bipolar Smoking Status: Former smoker Past Alcohol Use History: Occasional Past Drug Use History: None Reported - Past Family History Mother Family Medical History: Hypertension Medications and Allergies Home Medications Medication Instructions Recorded Confirmed Type Ibuprofen [Motrin Ib] 800 mg PO Q6H PRN 12/14/17 01/07/20 History Allergies Allergy/AdvReac Type Severity Reaction Status Date / Time erythromycin base Allergy Dyspnea Verified 01/07/20 14:04 [Erythromycin Base] Penicillins Allergy Dyspnea Verified 01/07/20 14:04 sulfamethoxazole Allergy Dyspnea Verified 01/07/20 14:04 [From Septra] trimethoprim [From ] Allergy Dyspnea Verified 01/07/20 14:04 morphine AdvReac Hallucinati Verified 01/07/20 14:04 ons Physical Examination - Vital Signs Vital Signs: Vital Signs Temp Pulse Resp BP Pulse Ox 01/07/20 14:10 66 18 137/97 100 01/07/20 11:33 98.6 F 70 18 139/84 96 Intake and Output 01/07/20 01/07/2001/06/20 06:59 14:59 22:59 Other: Weight 108.862 kg GENERAL: The patient is lying in bed and is not in acute distress. CHEST: The heart rate is regular rate rhythm. No murmurs to auscultation. No carotid bruit bilaterally. LUNG: Clear to auscultation bilaterally no wheezing noted throughout. Not labored breathing. ABDOMEN/GI: Bowel sounds present in all 4 quadrants. No tenderness to palpation throughout. NEUROLOGICAL: Higher mental function: The patient is awake, alert, oriented to self, place and time. Patient is following commands. No aphasia and no neglect. Cranial nerves: The pupils are round, equal and reactive to light and accommodation. Visual jones are full to confrontation throughout. Extraocular movement is intact no nystagmus is noted. Facial sensation is decrease to touch over right V2. The facial strength is normal throughout. Hearing is normal bilaterally to hand rub. Tongue is midline and moved [id number] without any difficulty. No dysarthria is noted. Shoulder shrug is normal bilaterally. Motor: Gait was taking cautious steps on the right foot (has heel spurs). The strength is 5 over 5 throughout. Normal tone and bulk. Cerebellum: Normal finger to nose heel to polanco bilaterally. Sensation: Sensation is normal to touch throughout. Reflexes (right/left): 2+ throughout except right patellar 3+. Plantars are upgoing bilaterally. Results AST of 33, ALTs of 30. PT of 9.5, INR 0.9 and PTT of 26.8. - Laboratory Findings CBC and BMP: 01/07/20 12:40 01/07/20 12:40 Abnormal Lab Findings: Abnormal Labs 01/07/20 12:40 Carbon Dioxide 21 L Glucose 101 H Assessment and Plan Assessment: Right sided numbness/tingling: possibly stroke ?hx of child seizure (was not on medication) Hx of Migraine Hx of Sciatica Plan: Currently the patient was started on aspirin 325 daily. We'll start him also on Lipitor 40 mg daily. MRI of brain is ordered and is pending. Carotid duplex was ordered and is also pending 2-D echo was ordered and it's pending. Lipid panel is pending I ordered TSH as well as hemoglobin A1c. This does not seem like a migraine or complicated migraine since this is not his usual headaches as well as with these episodes the he's having numbness tingling and without the headaches. Thank You for the consult. Dr. Belcher will start coverage tomorrow. Rudolph Dempsey M.D. Neuro-hospitalist Time with Patient: Greater than 30
[2020-01-07] MEDS ORDERED: ACETAMINOPHEN TAB 325 MG TAB PO PRN (20:12)
[2020-01-07] MEDS: ATORVASTATIN 40 MG TAB PO SCH (20:32)
[2020-01-08 07:34] LABS: Cholesterol 201 mg/dL (<200); HDL Cholesterol 29 mg/dL (40-60); LDL Cholesterol,Calculated 143 mg/dL (0-99); Triglycerides 145 mg/dL (<150)
--- NOTE | 2020-01-08 09:20 | MR ---
EXAMINATION TYPE: MR brain wo con DATE OF EXAM: 01/08/2020 COMPARISON: CT brain from yesterday. HISTORY: Stroke. Acute onset right sided extremity numbness 3 days earlier. TECHNIQUE: Multiplanar, multisequence imaging of the brain and brainstem is performed without IV cont rast. FINDINGS: Diffusion weighted images demonstrate no evidence of a recent infarct or other diffusion abnormality. There is no extraaxial fluid collection or significant white matter signal abnormality. The ventricu lar system and cisternal spaces are normal in size and appearance. The brain volume is age appropria te. Midline structures demonstrate normal morphology. The craniocervical junction appears within normal limits. Normal vascular flow voids are present. Mild mucosal thickening bilateral maxillary sinuses with bilateral mucous retention cysts or polyps m easuring roughly 2 cm in size. [id number] mucosal thickening throughout the ethmoid sinuses keshav aterally. Old fracture deformity medial wall left orbit seen better on recent CT. Globes are intact. Impression: No MRI evidence for a recent infarct. Chronic paranasal sinus disease otherwise unremarka ble study.
[2020-01-08] MEDS: ASPIRIN 325 MG TAB PO SCH (09:23)
--- NOTE | 2020-01-08 10:44 | P.DS ---
Providers Date of admission: 01/07/20 13:40 Attending physician: Ernesto Carnes Consults: 01/07/20 13:44 Consult Physician Routine Consulting Provider: Bart Belcher Consult Reason/Comments: right sided deficits Do you want consulting provider notified?: Yes Primary care physician: Madiha [facility] Course: 39-year-old male came in emesis 1 with complaints of numbness and tingling on the right side of the body and patient started having these symptoms on and off and the patient today started having tingling numbness and numbness in the right side of the face along with some blurriness in the on the right side because of which patient came to ER. Patient feels like patient has lidocaine in his mouth predominantly in the right side. Patient denied any headache patient denied any seizure-like activity denied any history of migraine denied any fever chills denied any other weakness any other focal deficits speech abnormalities. CT of the head was obtained which did not show any acute infarct. 01/08/2020 Patient had an MRI which didn't show any stroke but still can be a TIA. Discussed with neurology and the neurologist is agreeable and discharge inpatient at 81 mg of aspirin and atorvastatin 40 mg and patient does have elevated LDL. Dietary counseling was provided obesity counseling was provided. Patient had a carotid Doppler which was negative echocardiogram is pending. PHYSICAL EXAMINATION: GENERAL: The patient is alert and oriented x3, not in any acute distress. Well developed, well nourished. HEENT: Pupils are round and equally reacting to light. EOMI. No scleral icterus. No conjunctival pallor. Normocephalic, atraumatic. No pharyngeal erythema. No thyromegaly. CARDIOVASCULAR: S1 and S2 present. No murmurs, rubs, or gallops. PULMONARY: Chest is clear to auscultation, no wheezing or crackles. ABDOMEN: Soft, nontender, nondistended, normoactive bowel sounds. No palpable organomegaly. MUSCULOSKELETAL: No joint swelling or deformity. EXTREMITIES: No cyanosis, clubbing, or pedal edema. NEUROLOGICAL: Gross neurological examination did not reveal any focal deficits. SKIN: No rashes. - Possible TIA -Asthma without any acute exacerbation -Hyperlipidemia Patient Condition at Discharge: Serious Plan - Discharge Summary New Discharge Prescriptions: New Aspirin 81 mg PO DAILY #30 chewable Atorvastatin [Lipitor] 40 mg PO HS #30 tab Discontinued Ibuprofen [Motrin Ib] 800 mg PO Q6H PRN PRN Reason: Pain Discharge Medication List Aspirin 81 mg PO DAILY #30 chewable 01/08/20 [Rx] Atorvastatin [Lipitor] 40 mg PO HS #30 tab 01/08/20 [Rx] Follow up Appointment(s)/Referral(s): Madiha Khan MD [Primary Care Provider] - 3 Days Discharge Disposition: HOME SELF-CARE
--- NOTE | 2020-01-08 17:17 | P.PN ---
Subjective Progress Note Date: 01/08/20 Patient was seen for a follow-up. Initial neurological consultation performed by Dr. Rudolph Dempsey yesterday. Patient came to the hospital for right-sided paresthesias. 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 He felt it was possible related to excessive work she was doing. Yesterday morning at 8 AM he noticed numbness of the right side of the face as if he had a Novocain shot. Patient arrived to the hospital yesterday at 11:30 AM. He was not a candidate for TPA. Patient underwent MRI of the brain which was normal. Chronic paranasal sinus disease. Carotid Doppler showed no significant stenosis. Antegrade flow in both vertebral arteries. Patient states that his numbness on the right facial region has resolved, but still has paresthesias of the right arm and right leg. Patient has been started on aspirin 325 mg and Lipitor 40 mg. Hemoglobin A1c 6.0, hepatic panel normal, total cholesterol 201, LDL 143, HDL 29 and triglycerides 145. Patient states that he has smoked starting at age 16, quit 10 years ago (age 29). States he smoked 3 packs per day for those years. Denies hypertension or diabetes. States has hypoglycemia and seizures in his childhood. Objective - Vital Signs Vital signs: Vital Signs Temp 98.4 F 01/08/20 12:53 Pulse 65 01/08/20 16:00 Resp 18 01/08/20 16:00 BP 120/73 01/08/20 12:53 Pulse Ox 95 01/08/20 12:53 Intake & Output 01/07/20 01/08/20 01/08/20 18:59 06:59 18:59 Intake Total 540 100 Balance 540 100 Weight 108.862 kg 118 kg Intake: Oral 540 100 Other: # Voids 1 - Exam Patient's mental status, speech and language functions are normal. Cranial nerves II through XII are normal. No facial droop. Visual jones are full with no neglect. On muscle strength testing there is no pronator drift and the strength is normal in arms and legs distally and proximally. Plantars are downgoing. Sensory to touch produces paresthesias in the right arm and right leg as compared to the left side. Sensations are equal on the face. No ataxia for [id number] testing. Tone and bulk of muscles normal. Gait deferred. - Labs CBC & Chem 7: 01/07/20 12:40 01/07/20 12:40 Labs: Abnormal Lab Results - Last 24 Hours (Table) 01/08/20 Range/Units 06:31 Cholesterol 201 H (<200) mg/dL LDL Cholesterol, Calc 143 H (0-99) mg/dL HDL Cholesterol 29 L (40-60) mg/dL Assessment and Plan Assessment: * Right-sided numbness/tingling, involving face, arm and leg, possible CVA. Symptoms in the right facial region has resolved, but has persistent symptoms in the right arm and right leg. MRI of the brain however negative for acute stroke. * Hypertension * Hyperlipidemia * X tobacco use Plan: * Continue aspirin 325 mg daily. Patient was not on antiplatelet regimen prior to arrival. * Continue Lipitor 40 mg for dyslipidemia. * 2-D echo pending. * Blood pressure well controlled 120/73.
[2020-01-08] MEDS: ATORVASTATIN 40 MG TAB PO SCH (20:35)
[2020-01-09 04:13] VITALS: RESP 20
--- NOTE | 2020-01-09 10:02 | ECHOF ---
Referral Reason:Stroke MEASUREMENTS -------- HEIGHT: 180.3 cm WEIGHT: 117.9 kg BP: 125/83 RVIDd: 2.4 cm (< 3.3) IVSd: 1.3 cm (0.6 - 1.1) LVIDd: 4.2 cm (3.9 - 5.3) LVPWd: 1.5 cm (0.6 - 1.1) IVSs: 1.7 cm LVIDs: 2.3 cm LVPWs: 1.8 cm LAESV Index (A-L): 9.78 ml/m Ao Diam: 2.7 cm (2.0 - 3.7) AV Cusp: 2.1 cm (1.5 - 2.6) LA Diam: 2.9 cm (2.7 - 3.8) MV EXCURSION: 14.230 mm (> 18.000) MV EF SLOPE: 81 mm/s (70 - 150) EPSS: 0.6 cm MV E Maynor: 0.70 m/s MV DecT: 267 ms MV A Maynor: 0.56 m/s MV E/A Ratio: 1.27 RAP: 5.00 mmHg RVSP: 16.53 mmHg FINDINGS -------- This was a technically good study. The left ventricular size is normal. There is mild concentric left ventricular hypertrophy. Overa ll left ventricular systolic function is normal with, an EF between 55 - 60 %. The diastolic fillin g pattern is normal for the age of the patient 7.35. The right ventricle is normal in size. The left atrial size is normal. Normal LA size by volume 22+/-6 ml/m2. The right atrial size is normal. The aortic valve is trileaflet and appears structurally normal. The mitral valve is normal. There is trace mitral regurgitation. The tricuspid valve appears structurally normal. Trace tricuspid regurgitation present. Right rashida tricular systolic pressure is normal at < 35 mmHg. Trace/mild (physiologic) pulmonic regurgitation. The aortic root size is normal. IVC Not well visulized. There is no pericardial effusion. CONCLUSIONS -------- 1. The left ventricular size is normal. 2. There is mild concentric left ventricular hypertrophy. 3. Overall left ventricular systolic function is normal with, an EF between 55 - 60 %. 4. The diastolic filling pattern is normal for the age of the patient 7.35 5. There is trace mitral regurgitation. 6. Trace tricuspid regurgitation present. 7. Trace/mild (physiologic) pulmonic regurgitation. 8. There is no pericardial effusion. RN NURSERY: Hansa Adkins RDCS
[2020-01-09] MEDS: ASPIRIN 325 MG TAB PO SCH (10:12)
[2020-01-09 11:13] VITALS: BP 119/70; PULSE 70; TEMP 98.4
--- NOTE | 2020-01-09 11:20 | P.DS ---
Providers Date of admission: 01/07/20 13:40 Attending physician: Ernesto Carnes Consults: 01/07/20 13:44 Consult Physician Routine Consulting Provider: Bart Belcher Consult Reason/Comments: right sided deficits Do you want consulting provider notified?: Yes Primary care physician: Madi[facility] Course: Patient is being discharged today please refer to my dictation of discharge summary from yesterday for further details echocardiac exam is still not available but since there is no evidence of stroke on MRI patient will be discharged and echo will be followed as an outpatient. And has degenerative neck disease and numbness or tingling and numbness in the arm is may be related to that and patient doesn't have any such symptoms at this time. PHYSICAL EXAMINATION: GENERAL: The patient is alert and oriented x3, not in any acute distress. Obese HEENT: Pupils are round and equally reacting to light. EOMI. No scleral icterus. No conjunctival pallor. Normocephalic, atraumatic. No pharyngeal erythema. No thyromegaly. CARDIOVASCULAR: S1 and S2 present. No murmurs, rubs, or gallops. PULMONARY: Chest is clear to auscultation, no wheezing or crackles. ABDOMEN: Soft, nontender, nondistended, normoactive bowel sounds. No palpable organomegaly. MUSCULOSKELETAL: No joint swelling or deformity. EXTREMITIES: No cyanosis, clubbing, or pedal edema. NEUROLOGICAL: Gross neurological examination did not reveal any focal deficits. SKIN: No rashes. Patient Condition at Discharge: Serious Plan - Discharge Summary New Discharge Prescriptions: New Aspirin 81 mg PO DAILY #30 chewable Atorvastatin [Lipitor] 40 mg PO HS #30 tab Discontinued Ibuprofen [Motrin Ib] 800 mg PO Q6H PRN PRN Reason: Pain Discharge Medication List Aspirin 81 mg PO DAILY #30 chewable 01/08/20 [Rx] Atorvastatin [Lipitor] 40 mg PO HS #30 tab 01/08/20 [Rx] Follow up Appointment(s)/Referral(s): Rudolph Hoang MD [STAFF PHYSICIAN] - 1 Week (Office will call you with appointment date and time) Discharge Disposition: HOME SELF-CARE Care Plan Goals (MU): PCP list given to patient, Please pick PCP to set up with Primary Care Physician.
--- NOTE | 2020-01-09 12:06 | P.PN ---
Subjective Progress Note Date: 01/09/20 Patient was seen for a follow-up. Initial neurological consultation performed by Dr. Rudolph Dempsey 01/07/2020. Patient came to the hospital for right-sided paresthesias. 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 He felt it was possible related to excessive work she was doing. Yesterday morning at 8 AM he noticed numbness of the right side of the face as if he had a Novocain shot. Patient arrived to the hospital yesterday at 11:30 AM. He was not a candidate for TPA. Patient underwent MRI of the brain which was normal. Chronic paranasal sinus disease. Carotid Doppler showed no significant stenosis. Antegrade flow in both vertebral arteries. Patient states that his numbness on the right facial region has resolved, but still has paresthesias of the right arm and right leg. Patient has been started on aspirin 325 mg and Lipitor 40 mg. Hemoglobin A1c 6.0, hepatic panel normal, total cholesterol 201, LDL 143, HDL 29 and triglycerides 145. Patient states that he has smoked starting at age 16, quit 10 years ago (age 29). States he smoked 3 packs per day for those years. Denies hypertension or diabetes. States has hypoglycemia and seizures in his childhood. 01/09/2020: Patient offers no new complaints. Still gets numbness and tingling of his right arm and right leg but not of the face. Objective - Vital Signs Vital signs: Vital Signs Temp 98.4 F 01/09/20 08:00 Pulse 70 01/09/20 08:00 Resp 20 01/09/20 08:00 BP 119/70 01/09/20 08:00 Pulse Ox 98 01/09/20 08:00 Intake & Output 01/08/20 01/09/20 01/09/20 18:59 06:59 18:59 Intake Total 580 Balance 580 Weight 116.3 kg Intake: Oral 580 Other: Voiding Method Toilet Toilet # Voids 1 - Exam Patient's mental status, speech and language functions are normal. Mental status, speech and language functions are normal. Patient's gait is perfectly normal. Still with intermittent numbness of his right arm and right leg. - Labs CBC & Chem 7: 01/07/20 12:40 01/07/20 12:40 Assessment and Plan Assessment: * Right-sided numbness/tingling, involving face, arm and leg, possible CVA. Symptoms in the right facial region has resolved, but has persistent symptoms in the right arm and right leg. MRI of the brain however negative for acute stroke. * Hypertension * Hyperlipidemia * X tobacco use Plan: * Continue aspirin 325 mg daily. Patient was not on antiplatelet regimen prior to arrival. * Continue Lipitor 40 mg for dyslipidemia. * 2-D echo revealed normal left ventricular size. Mild concentric LVH. EF is 55-60%. Trace MR. No obvious embolic source identified. * Blood pressure well controlled 120/73. * Patient being discharged. Patient will follow up with Dr. Rudolph Hoang. Consider outpatient EEG.
== END 2020-01-09 12:40 | disposition home or self-care (01) ==
LOC: EC 11:30 → 3SCARD 13:40 → INTOOBSV 13:40 → 3SCARD 14:21 → UNDODISIN 01-09 12:40
PROVIDERS: ADMIT Internal Medicine; ATTEND Internal Medicine
DX: R20.0 Anesthesia of skin (principal); R20.2 Paresthesia of skin; R53.1 Weakness; H53.8 Other visual disturbances; I10 Essential (primary) hypertension; M50.30 Other cervical disc degeneration, unspecified cervical region; G89.29 Other chronic pain; M54.40 Lumbago with sciatica, unspecified side; J45.909 Unspecified asthma, uncomplicated; E78.5 Hyperlipidemia, unspecified; G43.909 Migraine, unspecified, not intractable, without status migrainosus; F90.9 Attention-deficit hyperactivity disorder, unspecified type; F31.9 Bipolar disorder, unspecified; E66.9 Obesity, unspecified; Z68.34 Body mass index [BMI] 34.0-34.9, adult; Z79.1 Long term (current) use of non-steroidal anti-inflammatories (NSAID); Z88.1 Allergy status to other antibiotic agents; Z88.5 Allergy status to narcotic agent; Z88.0 Allergy status to penicillin; Z88.2 Allergy status to sulfonamides; Z88.8 Allergy status to other drugs, medicaments and biological substances; Z98.890 Other specified postprocedural states; Z87.891 Personal history of nicotine dependence; Z86.61 Personal history of infections of the central nervous system; Z82.49 Family history of ischemic heart disease and other diseases of the circulatory system; Z82.0 Family history of epilepsy and other diseases of the nervous system
CPT/HCPCS: 99285; 36415; 93005; 93306; 80053; 80061; 84443; 84484; 85025; 85610; 85730; 83036; 93880; 70450; 70551; G0378 ×3

== ENCOUNTER 2020-04-01 06:00 | Emergency (ER) | payer OTHER ==
[2020-04-01] MEDS ORDERED: SODIUM CHLORIDE 0.9% 1,000 ML IV STA (06:22)
[2020-04-01] MEDS ORDERED: ONDANSETRON 4 MG/2 ML VIAL IVP STA (06:23)
[2020-04-01] MEDS ORDERED: ALBUTEROL HFA INHALER INHALATION STA (06:24)
[2020-04-01] MEDS ORDERED: ACETAMINOPHEN TAB 500 MG TAB PO STA (06:38)
--- NOTE | 2020-04-01 06:47 | ED ---
General Adult HPI - General Chief complaint: Shortness of Breath Stated complaint: SOB, nausea Time Seen by Provider: 04/01/20 06:15 Source: patient, RN notes reviewed Mode of arrival: ambulatory Limitations: no limitations - History of Present Illness Initial comments: 39-year-old male with a past medical history of asthma presents to the emergency room for a chief complaint of shortness of breath. Patient reports this started last night. Patient states he is also having nausea and feels like he is going to vomit. Patient also feels like he "got hit by a truck." Is complaining of body aches and chills. Denies fevers. Patient reports he was exposed to Covid over a month ago by his boss. States his boss came back to work yesterday and now his symptoms started last night after work. Patient is concerned he has Covid. He was tested after his initial exposure in January. He denies chest pain.Patient has no other complaints at this time including shortness of breath, chest pain, abdominal pain, nausea or vomiting, headache, or visual changes. - Related Data Home Medications Medication Instructions Recorded Confirmed Albuterol Inhaler [Ventolin Hfa 1 - 2 puff INHALATION RT-Q6H PRN 04/01/20 Inhaler] Aspirin EC [Ecotrin] 325 mg PO DAILY 04/01/20 04/01/20 Atorvastatin [Lipitor] 40 mg PO W/SUPPER 04/01/20 04/01/20 Previous Rx's Medication Instructions Recorded Doxycycline [Vibramycin] 100 mg PO BID 7 Days #14 capsule 04/01/20 Ondansetron [Zofran ODT] 4 mg PO Q8HR PRN #15 tab 04/01/20 Allergies Allergy/AdvReac Type Severity Reaction Status Date / Time erythromycin base Allergy Dyspnea Verified 04/01/20 07:15 [Erythromycin Base] Penicillins Allergy Dyspnea Verified 04/01/20 07:15 sulfamethoxazole Allergy Dyspnea Verified 04/01/20 07:15 [From Septra] trimethoprim [From Decra] Allergy Dyspnea Verified 04/01/20 07:15 morphine AdvReac Hallucinati Verified 04/01/20 07:15 ons Review of Systems ROS Statement: Those systems with pertinent positive or pertinent negative responses have been documented in the HPI. ROS Other: All systems not noted in ROS Statement are negative. Past Medical History Past Medical History: Asthma Additional Past Medical History / Comment(s): back pain, meningitis as History of Any Multi-Drug Resistant Organisms: None Reported Past Surgical History: Heart Catheterization, Orthopedic Surgery Additional Past Surgical History / Comment(s): heart cath no stents, left thumb surgery, ESWL Past Anesthesia/Blood Transfusion Reactions: No Reported Reaction Past Psychological History: ADD/ADHD, Bipolar Smoking Status: Former smoker Past Alcohol Use History: Occasional Past Drug Use History: None Reported - Past Family History Mother Family Medical History: Hypertension General Exam Limitations: no limitations General appearance: alert, in no apparent distress Head exam: Present: atraumatic, normocephalic, normal inspection Eye exam: Present: normal appearance, PERRL, EOMI. Absent: scleral icterus, conjunctival injection, periorbital swelling ENT exam: Present: normal exam, mucous membranes moist Neck exam: Present: normal inspection, full ROM. Absent: tenderness, meningi smus, lymphadenopathy Respiratory exam: Present: normal lung sounds bilaterally. Absent: respiratory distress, wheezes, rales, rhonchi, stridor Cardiovascular Exam: Present: regular rate, normal rhythm, normal heart sounds. Absent: systolic murmur, diastolic murmur, rubs, gallop, clicks GI/Abdominal exam: Present: soft, normal bowel sounds. Absent: distended, tenderness, guarding, rebound, rigid Neurological exam: Present: alert Course Vital Signs 04/01/20 04/01/20 06:06 07:47 Temperature 98.5 F 98.1 F Pulse Rate 99 74 Respiratory 26 H 16 Rate Blood Pressure 123/86 112/67 O2 Sat by Pulse 98 97 Oximetry EKG Findings - EKG Comments: EKG Findings:: EKG NSR, vent rate 83, ME int 160, QTc 425 Medical Decision Making - Medical Decision Making Vitals are stable. The patient initially presents with a respiratory rate of 26 sorry this was immediately after he sat down in triage. He does not appear short of breath. Lungs are clear. He is 97-98% on room air. CBC CMP unremarkable. Troponin is negative. A rapid coronavirus is negative. However patient does have a possible bibasilar pneumonia on chest x-ray. He is ALLERGIC to macrolides and will be treated with doxycycline. He will also be treated with steroids given history of asthma. He will follow up with his doctor in one to 2 days. He will return for any worsening symptoms. Given bibasilar infiltrate however it is recommended that he quarantine for 10 days. - Lab Data Result diagrams: 04/01/20 06:47 04/01/20 06:47 Lab Results 04/01/20 04/01/20 04/01/20 Range/Units 06:47 06:47 06:47 WBC 9.0 (3.8-10.6) k/uL RBC 5.41 (4.30-5.90) m/uL Hgb 16.0 (13.0-17.5) gm/dL Hct 46.4 (39.0-53.0) % MCV 85.6 (80.0-100.0) fL MCH 29.7 (25.0-35.0) pg MCHC 34.6 (31.0-37.0) g/dL RDW 13.0 (11.5-15.5) % Plt Count 252 (150-450) k/uL MPV 7.2 Neutrophils % 60 % Lymphocytes % 24 % Monocytes % 6 % Eosinophils % 6 % Basophils % 1 % Neutrophils # 5.4 (1.3-7.7) k/uL Lymphocytes # 2.2 (1.0-4.8) k/uL Monocytes # 0.6 (0-1.0) k/uL Eosinophils # 0.5 (0-0.7) k/uL Basophils # 0.1 (0-0.2) k/uL PT 9.4 (9.0-12.0) sec INR 0.9 (<1.2) APTT 26.2 (22.0-30.0) sec D-Dimer <0.17 (<0.60) mg/L FEU Sodium 136 L (137-145) mmol/L Potassium 4.4 (3.5-5.1) mmol/L Chloride 106 (98-107) mmol/L Carbon Dioxide 23 (22-30) mmol/L Anion Gap 7 mmol/L BUN 17 (9-20) mg/dL Creatinine 0.74 (0.66-1.25) mg/dL Est GFR (CKD-EPI)AfAm >90 (>60 ml/min/1.73 sqM) Est GFR (CKD-EPI)NonAf >90 (>60 ml/min/1.73 sqM) Glucose 143 H (74-99) mg/dL Plasma Lactic Acid Louis (0.7-2.0) mmol/L Calcium 9.6 (8.4-10.2) mg/dL Total Bilirubin 0.9 (0.2-1.3) mg/dL AST 37 (17-59) U/L ALT 35 (4-49) U/L Alkaline Phosphatase 62 (38-126) U/L Troponin I (0.000-0.034) ng/mL Total Protein 7.4 (6.3-8.2) g/dL Albumin 4.3 (3.5-5.0) g/dL Coronavirus (PCR) (Not Detectd) 04/01/20 04/01/20 04/01/20 Range/Units 06:47 06:47 06:47 WBC (3.8-10.6) k/uL RBC (4.30-5.90) m/uL Hgb (13.0-17.5) gm/dL Hct (39.0-53.0) % MCV (80.0-100.0) fL MCH (25.0-35.0) pg MCHC (31.0-37.0) g/dL RDW (11.5-15.5) % Plt Count (150-450) k/uL MPV Neutrophils % % Lymphocytes % % Monocytes % % Eosinophils % % Basophils % % Neutrophils # (1.3-7.7) k/uL Lymphocytes # (1.0-4.8) k/uL Monocytes # (0-1.0) k/uL Eosinophils # (0-0.7) k/uL Basophils # (0-0.2) k/uL PT (9.0-12.0) sec INR (<1.2) APTT (22.0-30.0) sec D-Dimer (<0.60) mg/L FEU Sodium (137-145) mmol/L Potassium (3.5-5.1) mmol/L Chloride (98-107) mmol/L Carbon Dioxide (22-30) mmol/L Anion Gap mmol/L BUN (9-20) mg/dL Creatinine (0.66-1.25) mg/dL Est GFR (CKD-EPI)AfAm (>60 ml/min/1.73 sqM) Est GFR (CKD-EPI)NonAf (>60 ml/min/1.73 sqM) Glucose (74-99) mg/dL Plasma Lactic Acid Louis 1.2 (0.7-2.0) mmol/L Calcium (8.4-10.2) mg/dL Total Bilirubin (0.2-1.3) mg/dL AST (17-59) U/L ALT (4-49) U/L Alkaline Phosphatase (38-126) U/L Troponin I <0.012 (0.000-0.034) ng/mL Total Protein (6.3-8.2) g/dL Albumin (3.5-5.0) g/dL Coronavirus (PCR) Not Detected (Not Detectd) Disposition Clinical Impression: Pneumonia Disposition: HOME SELF-CARE Condition: Good Additional Instructions: Please take antibiotic as directed. You were given a dose here in the emergency room 7 take her next dose tonight. Please quarantine for 10 days as long as symptoms are improving and you do not have fevers for 24 hours. Follow-up with your doctor in one to 2 days. Return to the emergency room for any worsening symptoms. Prescriptions: Doxycycline [Vibramycin] 100 mg PO BID 7 Days #14 capsule Ondansetron [Zofran ODT] 4 mg PO Q8HR PRN #15 tab PRN Reason: Nausea Is patient prescribed a controlled substance at d/c from ED?: No Referrals: [facility] [Primary Care Provider] - 1-2 days Time of Disposition: 08:05
[2020-04-01 06:56] LABS: Basophils # (A) 0.1 k/uL (0-0.2); Basophils % (A) 1 %; Eosinophils # (A) 0.5 k/uL (0-0.7); Eosinophils % (A) 6 %; HCT 46.4 % (39.0-53.0); Lymphocytes # (A) 2.2 k/uL (1.0-4.8); Lymphocytes % (A) 24 %; MCH 29.7 pg (25.0-35.0); MCHC 34.6 g/dL (31.0-37.0); MCV 85.6 fL (80.0-100.0); Mean Platelet Volume 7.2; Monocytes # (A) 0.6 k/uL (0-1.0); Monocytes % (A) 6 %; Neutrophils # (A) 5.4 k/uL (1.3-7.7); Neutrophils % (A) 60 %; Platelet Count 252 k/uL (150-450); RBC 5.41 m/uL (4.30-5.90)
[2020-04-01 07:07] LABS: ALT 35 U/L (4-49); AST 37 U/L (17-59); African American GFR (CKD) >90 (>60 ml/min/1.73 sqM); Albumin 4.3 g/dL (3.5-5.0); Alkaline Phosphatase 62 U/L (38-126); Anion Gap 7 mmol/L; Blood Urea Nitrogen 17 mg/dL (9-20); Calcium 9.6 mg/dL (8.4-10.2); Carbon Dioxide 23 mmol/L (22-30); Chloride 106 mmol/L (98-107); Glucose 143 mg/dL (74-99); Non-African American GFR(CKD) >90 (>60 ml/min/1.73 sqM); Potassium 4.4 mmol/L (3.5-5.1); Sodium 136 mmol/L (137-145); Total Bilirubin 0.9 mg/dL (0.2-1.3); Total Protein 7.4 g/dL (6.3-8.2)
[2020-04-01 07:09] LABS: D-Dimer <0.17 mg/L FEU (<0.60); INR 0.9 (<1.2); Partial Thromboplastin Time 26.2 sec (22.0-30.0); Prothrombin Time 9.4 sec (9.0-12.0)
--- NOTE | 2020-04-01 07:18 | XR ---
EXAMINATION TYPE: XR chest 1V portable DATE OF EXAM: 04/01/2020 COMPARISON: Chest x-ray July 15, 2019. HISTORY: Shortness of breath. TECHNIQUE: 2 AP portable frontal upright views of the chest are obtained. FINDINGS: There a new faint opacities in the bilateral lung bases. The cardiac silhouette size kathe ins within normal limits. The osseous structures are intact. IMPRESSION: Possible early acute bibasilar infiltrate and/or atelectasis. Consider progress study.
[2020-04-01 07:48] VITALS: BP 112/67; PULSE 74; RESP 16; TEMP 98.1
[2020-04-01] MEDS ORDERED: DOXYCYCLINE 100 MG CAP PO STA (08:03)
== END 2020-04-01 08:14 | disposition home or self-care (01) ==
LOC: EC 06:00
DX: J18.9 Pneumonia, unspecified organism (principal); J45.909 Unspecified asthma, uncomplicated; Z95.5 Presence of coronary angioplasty implant and graft; Z87.891 Personal history of nicotine dependence; Z88.0 Allergy status to penicillin; Z88.1 Allergy status to other antibiotic agents; Z88.2 Allergy status to sulfonamides; Z88.5 Allergy status to narcotic agent; Z20.828 Contact with and (suspected) exposure to other viral communicable diseases
CPT/HCPCS: 36415; 94640; 93005; 85379; 80053; 83605; 84484; 85025; 85610; 85730; 87635; 71045; 99285; 96374; 96361; J2405

== ENCOUNTER 2020-05-31 10:36 | Emergency (ER) | payer OTHER ==
[2020-05-31 10:44] VITALS: BP 131/85; PULSE 62; RESP 18; TEMP 98
[2020-05-31] MEDS ORDERED: PROPARACAINE 0.5% OPHTH DROPS 15 ML BTL LEFT EYE STA (10:49)
[2020-05-31] MEDS ORDERED: FLUORESCEIN STRIPS 1 MG STRIP LEFT EYE ONE (10:49)
--- NOTE | 2020-05-31 11:31 | ED ---
Eye Problem HPI - General Chief complaint: Eye Problems Stated complaint: IHS/object in eye Time Seen by Provider: 05/31/20 10:48 Source: patient Mode of arrival: ambulatory Limitations: no limitations - History of Present Illness Initial comments: 40-year-old male presented for left eye pain. Patient states just prior to arrival he was at work when he felt a piece of metal flinging office machine into his eye. He states he was wearing protective lenses but somehow it had gotten through. Patient denies any nausea vomiting headaches. Patient denies any loss of vision. He states that is slightly blurred because of the watery and light sensitivity. Patient denies additional complaints he states that he did rinse the eye thoroughly prior to arrival in the ER. - Related Data Home Medications Medication Instructions Recorded Confirmed Albuterol Inhaler [Ventolin Hfa 1 - 2 puff INHALATION RT-Q6H PRN 04/01/20 04/01/20 Inhaler] Aspirin EC [Ecotrin] 325 mg PO DAILY 04/01/20 04/01/20 Atorvastatin [Lipitor] 40 mg PO W/SUPPER 04/01/20 04/01/20 Previous Rx's Medication Instructions Recorded Doxycycline [Vibramycin] 100 mg PO BID 7 Days #14 capsule 04/01/20 Ondansetron [Zofran ODT] 4 mg PO Q8HR PRN #15 tab 04/01/20 predniSONE 50 mg PO DAILY #5 tablet 04/01/20 Ciprofloxacin Ophth Soln [Cipro 1 drops LEFT EYE Q6H 5 Days #3 ml 05/31/20 0.3% Ophth Soln] Allergies Allergy/AdvReac Type Severity Reaction Status Date / Time erythromycin base Allergy Dyspnea Verified 05/31/20 10:42 [Erythromycin Base] Penicillins Allergy Dyspnea Verified 05/31/20 10:42 sulfamethoxazole Allergy Dyspnea Verified 05/31/20 10:42 [From Septra] trimethoprim [From Decra] Allergy Dyspnea Verified 05/31/20 10:42 morphine AdvReac Hallucinati Verified 05/31/20 10:42 ons Review of Systems ROS Statement: Those systems with pertinent positive or pertinent negative responses have been documented in the HPI. ROS Other: All systems not noted in ROS Statement are negative. Past Medical History Past Medical History: Asthma, Hyperlipidemia, Hypertension Additional Past Medical History / Comment(s): back pain, meningitis as History of Any Multi-Drug Resistant Organisms: None Reported Past Surgical History: Heart Catheterization, Orthopedic Surgery Additional Past Surgical History / Comment(s): heart cath no stents, left thumb surgery, ESWL Past Anesthesia/Blood Transfusion Reactions: No Reported Reaction Past Psychological History: ADD/ADHD, Bipolar Smoking Status: Former smoker Past Alcohol Use History: Occasional Past Drug Use History: None Reported - Past Family History Mother Family Medical History: Hypertension General Exam - General Exam Comments Initial Comments: General: The patient is awake and alert, in no distress Eye: +3 mm pupils are equal, round and reactive to light, extra-ocular movements are intact. No nystagmus. There is very slight injection of the left eye in comparison with the right. No signs of icterus. Upon fluorescein examination there is faint uptake over the left cornea mid pupil. Patient has no evidence of foreign body retained. Negative Iggy sign. IOP 36 OD/OS. Patient VA 20/70 OS, 20/30 OD relief of pain with proparacaine Ears, nose, mouth and throat: There are moist mucous membranes and no oral lesions. Musculoskeletal: Normal ROM, no tenderness. Strength 5/5. Sensation intact. Pulses equal bilaterally 2+. Neurological: A&O x 3. CN II-XII intact grossly, There are no obvious motor or sensory deficits. Coordination appears grossly intact. Speech is normal. Skin: Skin is warm and dry and no rashes or lesions are noted. Psychiatric: Cooperative, appropriate mood & affect, normal judgment. Limitations: no limitations Course Vital Signs 05/31/20 10:42 Temperature 98 F Pulse Rate 62 Respiratory 18 Rate Blood Pressure 131/85 O2 Sat by Pulse 98 Oximetry Medical Decision Making - Medical Decision Making 40yo male prsenting for left eye pain after metal flung into eye. Relief with proparacaine.. no Fb but there is faint uptake, suspect corneal abrasion. pt does have elevated IOP b/l. Suspected chronic rather than acute angle closure given b/l findings/history provided/relief of pain with proparacaine. Patient case discussed with Dr. Stafford-- we consulted relationship [employer]oc electrical electronics engineers Dr. Parikh who felt this was not acute angle closure and more so chronic incidental finding given hx. he recommends pt comign to the [place] office as soon as he leave the Er. patient provided address and is agreeable to this care plan and discharge states he will go directly to the office. Disposition Clinical Impression: Intraocular pressure increase, Corneal abrasion Disposition: HOME SELF-CARE Condition: Good Instructions (If sedation given, give patient instructions): Corneal Abrasion (ED), Glaucoma (ED) Additional Instructions: Please use medication as discussed. Please follow-up with Dr. Garzon in office please go directly to his progression office after eating the emergency department. Please return to emergency room if the symptoms increase or worsen or for any other concerns. Prescriptions: Ciprofloxacin Ophth Soln [Cipro 0.3% Ophth Soln] 1 drops LEFT EYE Q6H 5 Days #3 ml Is patient prescribed a controlled substance at d/c from ED?: No Referrals: [facility],[place] [Primary Care Provider] - 1-2 days Dhiraj Parikh MD [STAFF PHYSICIAN] - 1-2 days Time of Disposition: 11:36
[2020-05-31] MEDS ORDERED: CIPROFLOXACIN 0.3% OPHTH SOLN 5 ML BTL LEFT EYE STA (11:37)
== END 2020-05-31 11:59 | disposition home or self-care (01) ==
LOC: EC 10:36
DX: S05.02XA Injury of conjunctiva and corneal abrasion without foreign body, left eye, initial encounter (principal); H40.052 Ocular hypertension, left eye; E78.5 Hyperlipidemia, unspecified; Z79.82 Long term (current) use of aspirin; Z79.899 Other long term (current) drug therapy; Z88.0 Allergy status to penicillin; Z88.1 Allergy status to other antibiotic agents; Z88.2 Allergy status to sulfonamides; Z88.5 Allergy status to narcotic agent; Z87.891 Personal history of nicotine dependence; Z95.5 Presence of coronary angioplasty implant and graft; W22.8XXA Striking against or struck by other objects, initial encounter; Y93.89 Activity, other specified; Y92.69 Other specified industrial and construction area as the place of occurrence of the external cause; Y99.8 Other external cause status
CPT/HCPCS: 99283

== ENCOUNTER → 2020-07-09 | Outpatient (CLI) | payer OTHER ==
--- NOTE | 2020-07-09 19:22 | CT ---
EXAMINATION TYPE: CT chest wo con DATE OF EXAM: 07/09/2020 COMPARISON: 10/02/2014 HISTORY: nodules CT DLP: 526.8 mGycm. Automated Exposure Control for Dose Reduction was Utilized. TECHNIQUE: CT scan of the thorax is performed without IV contrast. FINDINGS: LUNGS: 4 mm nodule right upper lobe anterior segment stable. 6 mm nodule right middle lobe stable. No pleural effusion or consolidation. No focal pneumonia. No pneumothorax. MEDIASTINUM: Lack of IV contrast is noted to limit evaluation for mediastinal and especially hilar ad enopathy. There are no definitive greater than 1 cm hilar or mediastinal lymph nodes. No cardiomega ly or pericardial effusion is seen. OTHER: Nodular density adjacent spleen stable from prior exam may represent a small accessory spleen. There is a 2 mm nonobstructing right renal calculus.. IMPRESSION: 1. Stable right-sided pulmonary nodules unchanged from 2015 and therefore benign. 2. Nonobstructing right renal calculus.
== END | disposition home or self-care (01) ==
LOC: RADCTMAIN 18:48
PROVIDERS: ATTEND Nurse Practitioner Family
DX: R91.8 Other nonspecific abnormal finding of lung field (principal)
CPT/HCPCS: 71250

== ENCOUNTER 2020-07-13 05:47 | Emergency (ER) | payer OTHER ==
[2020-07-13 05:54] VITALS: TEMP 97.6
[2020-07-13] MEDS ORDERED: SODIUM CHLORIDE 0.9% 1,000 ML IV STA (06:14)
[2020-07-13] MEDS ORDERED: ONDANSETRON 4 MG/2 ML VIAL IVP STA (06:14)
[2020-07-13 06:35] LABS: Basophils # (A) 0.1 k/uL (0-0.2); Basophils % (A) 1 %; Eosinophils # (A) 0.6 k/uL (0-0.7); Eosinophils % (A) 7 %; HGB 16.3 gm/dL (13.0-17.5); Lymphocytes # (A) 2.3 k/uL (1.0-4.8); Lymphocytes % (A) 24 %; MCH 29.5 pg (25.0-35.0); MCHC 34.7 g/dL (31.0-37.0); MCV 84.9 fL (80.0-100.0); Mean Platelet Volume 7.2; Monocytes # (A) 0.7 k/uL (0-1.0); Monocytes % (A) 8 %; Neutrophils # (A) 5.7 k/uL (1.3-7.7); Neutrophils % (A) 59 %; Platelet Count 246 k/uL (150-450); RBC 5.54 m/uL (4.30-5.90); RDW 12.6 % (11.5-15.5); WBC 9.7 k/uL (3.8-10.6)
--- NOTE | 2020-07-13 06:36 | ED ---
General Adult HPI - General Chief complaint: Shortness of Breath Stated complaint: vomiting,SOB,body aches Time Seen by Provider: 07/13/20 05:55 Source: patient, RN notes reviewed Mode of arrival: wheelchair Limitations: no limitations - History of Present Illness Initial comments: This a 40-year-old male presents emergency Department chief complaint shortness of breath, nausea, chest discomfort. Patient states that this started over 90. Patient states she's had some ongoing shortness of breath in which she's been evaluated for patient recent had a CT of his chest. Patient states that overnight he developed some nausea and vomiting which continued into the emergency department. Patient states he has some chest tightness and pain. Patient states that he had a heart cath left years ago which was normal at that time. Patient states that he does have hypertension, hyperlipidemia and prediabetic. Patient denies any known fever states he has had some body aches. Patient denies any abdominal pain and states that he just feels nauseated. No diarrhea constipation no leg pain or swelling. - Related Data Home Medications Medication Instructions Recorded Confirmed Aspirin EC [Ecotrin] 325 mg PO HS 04/01/20 07/13/20 Atorvastatin [Lipitor] 40 mg PO HS 04/01/20 07/13/20 Cholecalciferol (Vitamin D3) 125 mcg PO HS 07/13/20 07/13/20 [Vitamin D3 (5000 Iu)] Multivitamins, Thera [Multivitamin 1 tab PO HS 07/13/20 07/13/20 (formulary)] Previous Rx's Medication Instructions Recorded Ondansetron [Zofran ODT] 4 mg PO Q8HR PRN #15 tab 04/01/20 Allergies Allergy/AdvReac Type Severity Reaction Status Date / Time erythromycin base Allergy Rash/Hives Verified 07/13/20 07:07 [Erythromycin Base] Penicillins Allergy Dyspnea Verified 07/13/20 07:07 sulfamethoxazole Allergy Dyspnea Verified 07/13/20 07:07 [From Septra] trimethoprim [From Decra] Allergy Dyspnea Verified 07/13/20 07:07 morphine AdvReac Hallucinati Verified 07/13/20 07:07 ons Review of Systems ROS Statement: Those systems with pertinent positive or pertinent negative responses have been documented in the HPI. ROS Other: All systems not noted in ROS Statement are negative. Past Medical History Past Medical History: Asthma, Hyperlipidemia, Hypertension Additional Past Medical History / Comment(s): back pain, meningitis as History of Any Multi-Drug Resistant Organisms: None Reported Past Surgical History: Heart Catheterization, Orthopedic Surgery Additional Past Surgical History / Comment(s): heart cath no stents, left thumb surgery, ESWL Past Anesthesia/Blood Transfusion Reactions: No Reported Reaction Past Psychological History: ADD/ADHD, Bipolar Smoking Status: Former smoker Past Alcohol Use History: Occasional Past Drug Use History: None Reported - Past Family History Mother Family Medical History: Hypertension General Exam Limitations: no limitations General appearance: alert, in no apparent distress Head exam: Present: atraumatic, normocephalic, normal inspection Eye exam: Present: normal appearance, PERRL, EOMI. Absent: scleral icterus, conjunctival injection, periorbital swelling ENT exam: Present: normal exam, normal oropharynx, mucous membranes moist Neck exam: Present: normal inspection, full ROM. Absent: tenderness, meningismus, lymphadenopathy Respiratory exam: Present: normal lung sounds bilaterally. Absent: respiratory distress, wheezes, rales, rhonchi, stridor Cardiovascular Exam: Present: regular rate, normal rhythm, normal heart sounds. Absent: systolic murmur, diastolic murmur, rubs, gallop, clicks GI/Abdominal exam: Present: soft, normal bowel sounds. Absent: distended, tenderness, guarding, rebound, rigid Back exam: Absent: CVA tenderness (R), CVA tenderness (L) Neurological exam: Present: alert, oriented X3, CN II-XII intact Skin exam: Present: warm, dry, intact, normal color. Absent: rash Course Vital Signs 07/13/20 07/13/20 07/13/20 05:52 07:07 08:36 Temperature 97.6 F Pulse Rate 94 79 79 Respiratory 20 20 18 Rate Blood Pressure 133/88 121/90 125/88 O2 Sat by Pulse 95 96 97 Oximetry EKG Findings - EKG Comments: EKG Findings:: EKG performed at 6:04 normal sinus rhythm rate of 74 GA 164 QRS 82 QT/QTC 357/408 Medical Decision Making - Medical Decision Making 40-year-old male presented for chest pain. Patient did have some shortness of breath and nausea vomiting so she would. Patient's workup is negative this time though patient having persistent chest discomfort we made for cardiac rule out. - Lab Data Result diagrams: 07/13/20 06:24 07/13/20 06:24 Lab Results 07/13/20 07/13/20 07/13/20 Range/Units 06:24 06:24 06:24 WBC 9.7 (3.8-10.6) k/uL RBC 5.54 (4.30-5.90) m/uL Hgb 16.3 (13.0-17.5) gm/dL Hct 47.0 (39.0-53.0) % MCV 84.9 (80.0-100.0) fL MCH 29.5 (25.0-35.0) pg MCHC 34.7 (31.0-37.0) g/dL RDW 12.6 (11.5-15.5) % Plt Count 246 (150-450) k/uL MPV 7.2 Neutrophils % 59 % Lymphocytes % 24 % Monocytes % 8 % Eosinophils % 7 % Basophils % 1 % Neutrophils # 5.7 (1.3-7.7) k/uL Lymphocytes # 2.3 (1.0-4.8) k/uL Monocytes # 0.7 (0-1.0) k/uL Eosinophils # 0.6 (0-0.7) k/uL Basophils # 0.1 (0-0.2) k/uL PT 9.4 (9.0-12.0) sec INR 0.9 (<1.2) APTT 25.1 (22.0-30.0) sec Sodium (137-145) mmol/L Potassium (3.5-5.1) mmol/L Chloride (98-107) mmol/L Carbon Dioxide (22-30) mmol/L Anion Gap mmol/L BUN (9-20) mg/dL Creatinine (0.66-1.25) mg/dL Est GFR (CKD-EPI)AfAm (>60 ml/min/1.73 sqM) Est GFR (CKD-EPI)NonAf (>60 ml/min/1.73 sqM) Glucose (74-99) mg/dL Plasma Lactic Acid Louis (0.7-2.0) mmol/L Calcium (8.4-10.2) mg/dL Magnesium (1.6-2.3) mg/dL Total Bilirubin (0.2-1.3) mg/dL AST (17-59) U/L ALT (4-49) U/L Alkaline Phosphatase (38-126) U/L Troponin I (0.000-0.034) ng/mL NT-Pro-B Natriuret Pep pg/mL Total Protein (6.3-8.2) g/dL Albumin (3.5-5.0) g/dL Coronavirus (PCR) Not Detected (Not Detectd) 07/13/20 07/13/20 07/13/20 Range/Units 06:24 06:24 06:24 WBC (3.8-10.6) k/uL RBC (4.30-5.90) m/uL Hgb (13.0-17.5) gm/dL Hct (39.0-53.0) % MCV (80.0-100.0) fL MCH (25.0-35.0) pg MCHC (31.0-37.0) g/dL RDW (11.5-15.5) % Plt Count (150-450) k/uL MPV Neutrophils % % Lymphocytes % % Monocytes % % Eosinophils % % Basophils % % Neutrophils # (1.3-7.7) k/uL Lymphocytes # (1.0-4.8) k/uL Monocytes # (0-1.0) k/uL Eosinophils # (0-0.7) k/uL Basophils # (0-0.2) k/uL PT (9.0-12.0) sec INR (<1.2) APTT (22.0-30.0) sec Sodium 139 (137-145) mmol/L Potassium 4.1 (3.5-5.1) mmol/L Chloride 107 (98-107) mmol/L Carbon Dioxide 24 (22-30) mmol/L Anion Gap 8 mmol/L BUN 15 (9-20) mg/dL Creatinine 0.91 (0.66-1.25) mg/dL Est GFR (CKD-EPI)AfAm >90 (>60 ml/min/1.73 sqM) Est GFR (CKD-EPI)NonAf >90 (>60 ml/min/1.73 sqM) Glucose 119 H (74-99) mg/dL Plasma Lactic Acid Louis 0.9 (0.7-2.0) mmol/L Calcium 9.2 (8.4-10.2) mg/dL Magnesium 2.0 (1.6-2.3) mg/dL Total Bilirubin 0.5 (0.2-1.3) mg/dL AST 31 (17-59) U/L ALT 25 (4-49) U/L Alkaline Phosphatase 68 (38-126) U/L Troponin I <0.012 (0.000-0.034) ng/mL NT-Pro-B Natriuret Pep pg/mL Total Protein 7.0 (6.3-8.2) g/dL Albumin 4.1 (3.5-5.0) g/dL Coronavirus (PCR) (Not Detectd) 07/13/20 Range/Units 06:24 WBC (3.8-10.6) k/uL RBC (4.30-5.90) m/uL Hgb (13.0-17.5) gm/dL Hct (39.0-53.0) % MCV (80.0-100.0) fL MCH (25.0-35.0) pg MCHC (31.0-37.0) g/dL RDW (11.5-15.5) % Plt Count (150-450) k/uL MPV Neutrophils % % Lymphocytes % % Monocytes % % Eosinophils % % Basophils % % Neutrophils # (1.3-7.7) k/uL Lymphocytes # (1.0-4.8) k/uL Monocytes # (0-1.0) k/uL Eosinophils # (0-0.7) k/uL Basophils # (0-0.2) k/uL PT (9.0-12.0) sec INR (<1.2) APTT (22.0-30.0) sec Sodium (137-145) mmol/L Potassium (3.5-5.1) mmol/L Chloride (98-107) mmol/L Carbon Dioxide (22-30) mmol/L Anion Gap mmol/L BUN (9-20) mg/dL Creatinine (0.66-1.25) mg/dL Est GFR (CKD-EPI)AfAm (>60 ml/min/1.73 sqM) Est GFR (CKD-EPI)NonAf (>60 ml/min/1.73 sqM) Glucose (74-99) mg/dL Plasma Lactic Acid Louis (0.7-2.0) mmol/L Calcium (8.4-10.2) mg/dL Magnesium (1.6-2.3) mg/dL Total Bilirubin (0.2-1.3) mg/dL AST (17-59) U/L ALT (4-49) U/L Alkaline Phosphatase (38-126) U/L Troponin I (0.000-0.034) ng/mL NT-Pro-B Natriuret Pep <11 pg/mL Total Protein (6.3-8.2) g/dL Albumin (3.5-5.0) g/dL Coronavirus (PCR) (Not Detectd) Disposition Clinical Impression: Chest pain, Nausea & vomiting Disposition: ADMITTED IP TO THIS HOSP Condition: Fair Referrals: Jermain Alvarez MD [Primary Care Provider] - 1-2 days
[2020-07-13 06:48] LABS: ALT 25 U/L (4-49); AST 31 U/L (17-59); African American GFR (CKD) >90 (>60 ml/min/1.73 sqM); Albumin 4.1 g/dL (3.5-5.0); Alkaline Phosphatase 68 U/L (38-126); Anion Gap 8 mmol/L; Blood Urea Nitrogen 15 mg/dL (9-20); Calcium 9.2 mg/dL (8.4-10.2); Carbon Dioxide 24 mmol/L (22-30); Chloride 107 mmol/L (98-107); Glucose 119 mg/dL (74-99); Non-African American GFR(CKD) >90 (>60 ml/min/1.73 sqM); Potassium 4.1 mmol/L (3.5-5.1); Sodium 139 mmol/L (137-145); Total Bilirubin 0.5 mg/dL (0.2-1.3)
[2020-07-13 06:51] LABS: INR 0.9 (<1.2); Partial Thromboplastin Time 25.1 sec (22.0-30.0); Prothrombin Time 9.4 sec (9.0-12.0)
[2020-07-13] MEDS ORDERED: ASPIRIN 81 MG PO STA (06:54)
[2020-07-13] MEDS ORDERED: ACETAMINOPHEN TAB 325 MG TAB PO STA (06:54)
--- NOTE | 2020-07-13 06:55 | XR ---
EXAM: XR Chest, 2 Views CLINICAL HISTORY: ITS.REASON XR Reason: difficulty breathing TECHNIQUE: Frontal and lateral views of the chest. COMPARISON: 04/01/2020 FINDINGS: Lungs: Unremarkable. No consolidation. Pleural space: Unremarkable. No pneumothorax. Heart: Unremarkable. No cardiomegaly. Mediastinum: Unremarkable. Bones/joints: Unremarkable. IMPRESSION: No acute pulmonary process.
[2020-07-13 08:37] VITALS: RESP 18
[2020-07-13] MEDS ORDERED: HEPARIN SODIUM,PORCINE 5,000 UNIT/ML 1 ML VIAL IV PRN (09:00)
[2020-07-13] MEDS ORDERED: HEPARIN SODIUM,PORCINE 5,000 UNIT/ML 1 ML VIAL IV ONE (09:00)
[2020-07-13] MEDS ORDERED: HEPARIN SOD,PORK IN 0.45% NACL 25,000 UNIT in 0.45% NACL 1 250ML.BAG IV SCH (09:00)
[2020-07-13 09:27] VITALS: BP 105/63; PULSE 72
[2020-07-13] MEDS ORDERED: NITROGLYCERIN OINT 1 INCH/GM PACKET TOPICAL SCH (12:00)
[2020-07-14] MEDS ORDERED: ASPIRIN 325 MG TAB PO SCH (09:00)
== END 2020-07-13 09:43 | disposition left against medical advice (07) ==
LOC: EC 05:47
DX: R07.89 Other chest pain (principal); R11.2 Nausea with vomiting, unspecified; J45.909 Unspecified asthma, uncomplicated; I10 Essential (primary) hypertension; E78.5 Hyperlipidemia, unspecified; Z95.5 Presence of coronary angioplasty implant and graft; Z87.891 Personal history of nicotine dependence; Z79.82 Long term (current) use of aspirin
CPT/HCPCS: 99285; 96374; 96360; 96361; 36415; 93005; 83880; 80053; 83605; 83735; 84484; 85025; 85610; 85730; 87635; 71046; J2405; 96376

== ENCOUNTER 2020-07-25 19:05 | Emergency (ER) | payer OTHER ==
[2020-07-25 20:00] VITALS: RESP 18
--- NOTE | 2020-07-25 21:32 | XR ---
EXAMINATION TYPE: XR chest 2V DATE OF EXAM: 07/25/2020 COMPARISON: 07/13/2020. HISTORY: Shortness of breath. TECHNIQUE: Frontal and lateral views of the chest are obtained. FINDINGS: There is no focal air space opacity, pleural effusion, or pneumothorax seen. The cardiac silhouette size is within normal limits. The osseous structures are intact. IMPRESSION: No acute cardiopulmonary process.
[2020-07-25 22:02] LABS: Basophils # (A) 0.1 k/uL (0-0.2); Basophils % (A) 3 %; Eosinophils # (A) 0.1 k/uL (0-0.7); Eosinophils % (A) 1 %; HCT 49.5 % (39.0-53.0); Lymphocytes # (A) 1.8 k/uL (1.0-4.8); Lymphocytes % (A) 38 %; MCHC 34.4 g/dL (31.0-37.0); MCV 84.4 fL (80.0-100.0); Mean Platelet Volume 6.9; Monocytes # (A) 0.6 k/uL (0-1.0); Monocytes % (A) 13 %; Neutrophils % (A) 42 %; Platelet Count 217 k/uL (150-450); RBC 5.87 m/uL (4.30-5.90); RDW 12.8 % (11.5-15.5); WBC 4.7 k/uL (3.8-10.6)
[2020-07-25 22:16] LABS: ALT 50 U/L (4-49); AST 61 U/L (17-59); African American GFR (CKD) >90 (>60 ml/min/1.73 sqM); Albumin 4.6 g/dL (3.5-5.0); Alkaline Phosphatase 67 U/L (38-126); Anion Gap 11 mmol/L; Blood Urea Nitrogen 14 mg/dL (9-20); Calcium 9.3 mg/dL (8.4-10.2); Carbon Dioxide 24 mmol/L (22-30); Chloride 102 mmol/L (98-107); Glucose 100 mg/dL (74-99); Non-African American GFR(CKD) >90 (>60 ml/min/1.73 sqM); Potassium 4.3 mmol/L (3.5-5.1); Sodium 137 mmol/L (137-145); Total Bilirubin 0.9 mg/dL (0.2-1.3); Total Protein 7.7 g/dL (6.3-8.2)
[2020-07-25 22:19] LABS: INR 0.9 (<1.2); Partial Thromboplastin Time 27.3 sec (22.0-30.0); Prothrombin Time 10.1 sec (9.0-12.0)
[2020-07-25] MEDS ORDERED: KETOROLAC 15 MG/ML 1 ML VIAL IM STA (23:13)
[2020-07-25] MEDS ORDERED: dexAMETHasone 4 MG TAB PO STA (23:13)
[2020-07-25] MEDS ORDERED: ACET/COD 300 MG/30 MG STARTER PACK 6 TAB BTL PO STA (23:13)
--- NOTE | 2020-07-26 | ED ---
SOB HPI - General Chief Complaint: Shortness of Breath Stated Complaint: ACHES/SOB/FEVER/PHLEGM Time Seen by Provider: 07/25/20 22:43 Source: patient, EMS Mode of arrival: EMS Limitations: no limitations - Related Data Home Medications Medication Instructions Recorded Confirmed Aspirin EC [Ecotrin] 325 mg PO HS 04/01/20 07/25/20 Atorvastatin [Lipitor] 40 mg PO HS 04/01/20 07/25/20 Cholecalciferol (Vitamin D3) 125 mcg PO HS 07/13/20 07/25/20 [Vitamin D3 (5000 Iu)] Allergies Allergy/AdvReac Type Severity Reaction Status Date / Time erythromycin base Allergy Rash/Hives Verified 07/25/20 23:17 [Erythromycin Base] Penicillins Allergy Dyspnea Verified 07/25/20 23:17 sulfamethoxazole Allergy Dyspnea Verified 07/25/20 23:17 [From ] trimethoprim [From ] Allergy Dyspnea Verified 07/25/20 23:17 morphine AdvReac Hallucinati Verified 07/25/20 23:17 ons Review of Systems ROS Statement: Those systems with pertinent positive or pertinent negative responses have been documented in the HPI. ROS Other: All systems not noted in ROS Statement are negative. Past Medical History Past Medical History: Asthma, Hyperlipidemia, Hypertension Additional Past Medical History / Comment(s): back pain, meningitis as History of Any Multi-Drug Resistant Organisms: None Reported Past Surgical History: Heart Catheterization, Orthopedic Surgery Additional Past Surgical History / Comment(s): heart cath no stents, left thumb surgery, ESWL Past Anesthesia/Blood Transfusion Reactions: No Reported Reaction Past Psychological History: ADD/ADHD, Bipolar Smoking Status: Former smoker Past Alcohol Use History: Occasional Past Drug Use History: None Reported - Past Family History Mother Family Medical History: Hypertension General Exam Limitations: no limitations Course Vital Signs 07/25/20 07/25/20 07/25/20 19:56 23:05 23:09 Temperature 99.4 F 99.1 F Pulse Rate 83 73 Respiratory 18 18 18 Rate Blood Pressure 126/72 129/90 O2 Sat by Pulse 97 96 Oximetry Medical Decision Making - Lab Data Result diagrams: 07/25/20 21:29 07/25/20 21:29 Lab Results 07/25/20 07/25/20 07/25/20 Range/Units 21:29 21:29 21:29 WBC 4.7 (3.8-10.6) k/uL RBC 5.87 (4.30-5.90) m/uL Hgb 17.0 (13.0-17.5) gm/dL Hct 49.5 (39.0-53.0) % MCV 84.4 (80.0-100.0) fL MCH 29.0 (25.0-35.0) pg MCHC 34.4 (31.0-37.0) g/dL RDW 12.8 (11.5-15.5) % Plt Count 217 (150-450) k/uL MPV 6.9 Neutrophils % 42 % Lymphocytes % 38 % Monocytes % 13 % Eosinophils % 1 % Basophils % 3 % Neutrophils # 2.0 (1.3-7.7) k/uL Lymphocytes # 1.8 (1.0-4.8) k/uL Monocytes # 0.6 (0-1.0) k/uL Eosinophils # 0.1 (0-0.7) k/uL Basophils # 0.1 (0-0.2) k/uL PT 10.1 (9.0-12.0) sec INR 0.9 (<1.2) APTT 27.3 (22.0-30.0) sec Sodium 137 (137-145) mmol/L Potassium 4.3 (3.5-5.1) mmol/L Chloride 102 (98-107) mmol/L Carbon Dioxide 24 (22-30) mmol/L Anion Gap 11 mmol/L BUN 14 (9-20) mg/dL Creatinine 0.92 (0.66-1.25) mg/dL Est GFR (CKD-EPI)AfAm >90 (>60 ml/min/1.73 sqM) Est GFR (CKD-EPI)NonAf >90 (>60 ml/min/1.73 sqM) Glucose 100 H (74-99) mg/dL Calcium 9.3 (8.4-10.2) mg/dL Total Bilirubin 0.9 (0.2-1.3) mg/dL AST 61 H (17-59) U/L ALT 50 H (4-49) U/L Alkaline Phosphatase 67 (38-126) U/L Troponin I (0.000-0.034) ng/mL Total Protein 7.7 (6.3-8.2) g/dL Albumin 4.6 (3.5-5.0) g/dL 07/25/20 Range/Units 21:29 WBC (3.8-10.6) k/uL RBC (4.30-5.90) m/uL Hgb (13.0-17.5) gm/dL Hct (39.0-53.0) % MCV (80.0-100.0) fL MCH (25.0-35.0) pg MCHC (31.0-37.0) g/dL RDW (11.5-15.5) % Plt Count (150-450) k/uL MPV Neutrophils % % Lymphocytes % % Monocytes % % Eosinophils % % Basophils % % Neutrophils # (1.3-7.7) k/uL Lymphocytes # (1.0-4.8) k/uL Monocytes # (0-1.0) k/uL Eosinophils # (0-0.7) k/uL Basophils # (0-0.2) k/uL PT (9.0-12.0) sec INR (<1.2) APTT (22.0-30.0) sec Sodium (137-145) mmol/L Potassium (3.5-5.1) mmol/L Chloride (98-107) mmol/L Carbon Dioxide (22-30) mmol/L Anion Gap mmol/L BUN (9-20) mg/dL Creatinine (0.66-1.25) mg/dL Est GFR (CKD-EPI)AfAm (>60 ml/min/1.73 sqM) Est GFR (CKD-EPI)NonAf (>60 ml/min/1.73 sqM) Glucose (74-99) mg/dL Calcium (8.4-10.2) mg/dL Total Bilirubin (0.2-1.3) mg/dL AST (17-59) U/L ALT (4-49) U/L Alkaline Phosphatase (38-126) U/L Troponin I <0.012 (0.000-0.034) ng/mL Total Protein (6.3-8.2) g/dL Albumin (3.5-5.0) g/dL Disposition Clinical Impression: Coronavirus infection Disposition: HOME SELF-CARE Condition: Good Instructions (If sedation given, give patient instructions): Coronavirus Disease 2019 (COVID-19) Is patient prescribed a controlled substance at d/c from ED?: No Referrals: Jermain Alvarez MD [Primary Care Provider] - 1-2 days
[2020-07-26 01:41] LABS: C Reactive Protein <5.0 mg/L (<10.0); LDH 569 U/L (313-618)
[2020-07-26 02:13] VITALS: BP 114/73; PULSE 62; TEMP 98.4
== END 2020-07-26 02:11 | disposition home or self-care (01) ==
LOC: EC 19:05
DX: U07.1 COVID-19 (principal); J45.909 Unspecified asthma, uncomplicated; I10 Essential (primary) hypertension; E78.5 Hyperlipidemia, unspecified; Z87.891 Personal history of nicotine dependence; Z95.5 Presence of coronary angioplasty implant and graft
CPT/HCPCS: 99285; 96372; 36415; 93005; 80053; 83615; 84484; 85025; 85610; 85730; 86140; 87635; 71046; J8540; J1885

== ENCOUNTER 2020-07-29 13:04 | Observation (INO) | payer OTHER ==
--- NOTE | 2020-07-29 13:24 | ED ---
General Adult HPI - General Source: patient, RN notes reviewed Mode of arrival: ambulatory Limitations: no limitations <Yash Jon - Last Filed: 07/29/20 13:22> <Andrea Trujillo - Last Filed: 07/29/20 18:04> - General Stated complaint: COVID+ Time Seen by Provider: 07/29/20 13:20 - History of Present Illness Initial comments: 40-year-old male presents emergency Department chief complaint of chest discomfort, shortness breath. Patient was recently diagnosed with covid 19 patient states he's been having some ongoing chest discomfort persisted today the pressure worsen centralized chest. He's had increased shortness of breath. Patient continues to have fevers, chills, body aches. Patient has had some slight nausea vomiting. Patient states that he had heart cath 11 years ago. Patient denies any other cardiac history patient states that stroke in the past. (Yash Jon) - Related Data Home Medications Medication Instructions Recorded Confirmed Aspirin EC [Ecotrin] 325 mg PO HS 04/01/20 07/29/20 Atorvastatin [Lipitor] 40 mg PO HS 04/01/20 07/29/20 Cholecalciferol (Vitamin D3) 125 mcg PO HS 07/13/20 07/29/20 [Vitamin D3 (5000 Iu)] Acetaminophen-Codeine 300-30mg 1 tab PO Q6H PRN 07/29/20 07/29/20 [Tylenol w/codeine #3] Allergies Allergy/AdvReac Type Severity Reaction Status Date / Time erythromycin base Allergy Anaphylaxis Verified 07/29/20 15:47 [Erythromycin Base] Penicillins Allergy Anaphylaxis Verified 07/29/20 15:47 sulfamethoxazole Allergy Anaphylaxis Verified 07/29/20 15:47 [From Septra] trimethoprim [From Septra] Allergy Anaphylaxis Verified 07/29/20 15:47 morphine AdvReac Hallucinati Verified 07/29/20 15:47 ons Review of Systems ROS Other: All systems not noted in ROS Statement are negative. <Yash Jon - Last Filed: 07/29/20 13:22> ROS Other: All systems not noted in ROS Statement are negative. <Andrea Trujillo - Last Filed: 07/29/20 18:04> ROS Statement: Those systems with pertinent positive or pertinent negative responses have been documented in the HPI. Past Medical History Past Medical History: Asthma, Hyperlipidemia, Hypertension Additional Past Medical History / Comment(s): back pain, meningitis as infant History of Any Multi-Drug Resistant Organisms: None Reported Past Surgical History: Heart Catheterization, Orthopedic Surgery Additional Past Surgical History / Comment(s): heart cath no stents, left thumb surgery, ESWL Past Anesthesia/Blood Transfusion Reactions: No Reported Reaction Past Psychological History: ADD/ADHD, Bipolar Smoking Status: Former smoker Past Alcohol Use History: Occasional Past Drug Use History: None Reported - Past Family History Mother Family Medical History: Hypertension <Yash Jon - Last Filed: 07/29/20 13:22> General Exam Limitations: no limitations General appearance: alert, in no apparent distress Head exam: Present: atraumatic, normocephalic, normal inspection Respiratory exam: Present: normal lung sounds bilaterally. Absent: respiratory distress, wheezes, rales, rhonchi, stridor Cardiovascular Exam: Present: regular rate, normal rhythm, normal heart sounds. Absent: systolic murmur, diastolic murmur, rubs, gallop, clicks <Yash Jon - Last Filed: 07/29/20 13:22> Limitations: no limitations General appearance: alert, in no apparent distress Head exam: Present: atraumatic, normocephalic, normal inspection Eye exam: Present: normal appearance, PERRL, EOMI Pupils: Present: normal accommodation ENT exam: Present: normal exam, normal oropharynx, mucous membranes moist Neck exam: Present: normal inspection, full ROM. Absent: tenderness, meningismus, lymphadenopathy Respiratory exam: Present: normal lung sounds bilaterally. Absent: respiratory distress, wheezes, rales, rhonchi, stridor, chest wall tenderness (No reproducible chest pain), accessory muscle use (No retractions) Cardiovascular Exam: Present: regular rate, normal rhythm, normal heart sounds. Absent: systolic murmur GI/Abdominal exam: Present: soft. Absent: distended Extremities exam: Present: normal inspection, full ROM, normal capillary refill. Absent: tenderness, pedal edema, joint swelling Back exam: Present: normal inspection, full ROM. Absent: tenderness, CVA tenderness (R), CVA tenderness (L) Neurological exam: Present: alert, oriented X3 Psychiatric exam: Present: normal affect, normal mood Skin exam: Present: warm, dry, intact, normal color <Andrea Trujillo - Last Filed: 07/29/20 18:04> Course Vital Signs 07/29/20 07/29/20 13:20 16:18 Temperature 98.1 F Pulse Rate 71 Respiratory 18 18 Rate Blood Pressure 124/80 O2 Sat by Pulse 99 Oximetry EKG Findings - EKG Comments: EKG Findings:: Sinus rhythm, inverted T waves in lead 3. Clair a rate 65, SC 150, QRS 70, QTC 418. <Andrea Trujillo - Last Filed: 07/29/20 18:04> Medical Decision Making - Lab Data Result diagrams: 07/29/20 14:14 07/29/20 14:14 <Andrea Trujillo - Last Filed: 07/29/20 18:04> - Medical Decision Making 40-year-old male with history of this lipidemia, hypertension, CVA, cardiac catheterization presents emergency per the chief complaint of chest pain and shortness of breath. On physical examination, patient is slightly short of breath but has an oxygen saturation 97% on room air. Complaining of midsternal chest pain, sharp in nature appears to be exacerbated on exertion. He tested coronavirus positive on 07/25/20. Chest x-ray showed no acute processes at this time. Last stress test was in 2017. Patient has not seen a leadite man in quite some time. He is slightly dehydrated. CBC reveals hemoconcentration. CMP unremarkable. Coags within normal limits. Negative d-dimer and troponin. Considering the patient's history, he will be admitted for cardiac observation. I discussed the case with who will admit. Case also discussed with Dr. Mitchell Cardiology consult (Andrea Trujillo) - Lab Data Lab Results 07/29/20 07/29/20 07/29/20 Range/Units 14:14 14:14 14:14 WBC 5.0 (3.8-10.6) k/uL RBC 6.30 H (4.30-5.90) m/uL Hgb 17.8 H (13.0-17.5) gm/dL Hct 53.1 H (39.0-53.0) % MCV 84.2 (80.0-100.0) fL MCH 28.2 (25.0-35.0) pg MCHC 33.5 (31.0-37.0) g/dL RDW 13.0 (11.5-15.5) % Plt Count 222 (150-450) k/uL MPV 7.1 Neutrophils % 47 % Lymphocytes % 35 % Monocytes % 10 % Eosinophils % 3 % Basophils % 1 % Neutrophils # 2.4 (1.3-7.7) k/uL Lymphocytes # 1.8 (1.0-4.8) k/uL Monocytes # 0.5 (0-1.0) k/uL Eosinophils # 0.2 (0-0.7) k/uL Basophils # 0.1 (0-0.2) k/uL PT (9.0-12.0) sec INR (<1.2) APTT (22.0-30.0) sec D-Dimer (<0.60) mg/L FEU Sodium 138 (137-145) mmol/L Potassium 4.5 (3.5-5.1) mmol/L Chloride 107 (98-107) mmol/L Carbon Dioxide 20 L (22-30) mmol/L Anion Gap 11 mmol/L BUN 12 (9-20) mg/dL Creatinine 0.70 (0.66-1.25) mg/dL Est GFR (CKD-EPI)AfAm >90 (>60 ml/min/1.73 sqM) Est GFR (CKD-EPI)NonAf >90 (>60 ml/min/1.73 sqM) Glucose 86 (74-99) mg/dL Calcium 9.4 (8.4-10.2) mg/dL Magnesium 2.1 (1.6-2.3) mg/dL Total Bilirubin 1.3 (0.2-1.3) mg/dL AST 41 (17-59) U/L ALT 44 (4-49) U/L Alkaline Phosphatase 71 (38-126) U/L Troponin I <0.012 (0.000-0.034) ng/mL NT-Pro-B Natriuret Pep pg/mL Total Protein 7.7 (6.3-8.2) g/dL Albumin 4.4 (3.5-5.0) g/dL 07/29/20 07/29/20 Range/Units 14:14 14:33 WBC (3.8-10.6) k/uL RBC (4.30-5.90) m/uL Hgb (13.0-17.5) gm/dL Hct (39.0-53.0) % MCV (80.0-100.0) fL MCH (25.0-35.0) pg MCHC (31.0-37.0) g/dL RDW (11.5-15.5) % Plt Count (150-450) k/uL MPV Neutrophils % % Lymphocytes % % Monocytes % % Eosinophils % % Basophils % % Neutrophils # (1.3-7.7) k/uL Lymphocytes # (1.0-4.8) k/uL Monocytes # (0-1.0) k/uL Eosinophils # (0-0.7) k/uL Basophils # (0-0.2) k/uL PT 9.9 (9.0-12.0) sec INR 0.9 (<1.2) APTT 25.4 (22.0-30.0) sec D-Dimer 0.18 (<0.60) mg/L FEU Sodium (137-145) mmol/L Potassium (3.5-5.1) mmol/L Chloride (98-107) mmol/L Carbon Dioxide (22-30) mmol/L Anion Gap mmol/L BUN (9-20) mg/dL Creatinine (0.66-1.25) mg/dL Est GFR (CKD-EPI)AfAm (>60 ml/min/1.73 sqM) Est GFR (CKD-EPI)NonAf (>60 ml/min/1.73 sqM) Glucose (74-99) mg/dL Calcium (8.4-10.2) mg/dL Magnesium (1.6-2.3) mg/dL Total Bilirubin (0.2-1.3) mg/dL AST (17-59) U/L ALT (4-49) U/L Alkaline Phosphatase (38-126) U/L Troponin I (0.000-0.034) ng/mL NT-Pro-B Natriuret Pep 25 pg/mL Total Protein (6.3-8.2) g/dL Albumin (3.5-5.0) g/dL Disposition <Yash Jon - Last Filed: 07/29/20 13:22> Is patient prescribed a controlled substance at d/c from ED?: No Time of Disposition: 17:00 <Andrea Trujillo - Last Filed: 07/29/20 18:04> Clinical Impression: Chest pain, COVID-19, Shortness of breath Disposition: ADMITTED IP TO THIS HOSP Condition: Stable Instructions (If sedation given, give patient instructions): Chest Pain (ED) Referrals: Jermain Alvarez MD [Primary Care Provider] - 1-2 days
--- NOTE | 2020-07-29 13:57 | XR ---
EXAMINATION TYPE: XR chest 2V DATE OF EXAM: 07/29/2020 COMPARISON: 320 INDICATION: Chest pain TECHNIQUE: Frontal and lateral views of the chest are obtained. FINDINGS: The heart size is normal. The pulmonary vasculature is normal. The lungs are clear. IMPRESSION: 1. No acute pulmonary process.
[2020-07-29 14:33] LABS: Basophils # (A) 0.1 k/uL (0-0.2); Basophils % (A) 1 %; Eosinophils # (A) 0.2 k/uL (0-0.7); Eosinophils % (A) 3 %; HCT 53.1 % (39.0-53.0); HGB 17.8 gm/dL (13.0-17.5); Lymphocytes # (A) 1.8 k/uL (1.0-4.8); Lymphocytes % (A) 35 %; MCH 28.2 pg (25.0-35.0); MCHC 33.5 g/dL (31.0-37.0); MCV 84.2 fL (80.0-100.0); Mean Platelet Volume 7.1; Monocytes # (A) 0.5 k/uL (0-1.0); Monocytes % (A) 10 %; Neutrophils # (A) 2.4 k/uL (1.3-7.7); Neutrophils % (A) 47 %; Platelet Count 222 k/uL (150-450)
[2020-07-29 14:54] LABS: ALT 44 U/L (4-49); AST 41 U/L (17-59); African American GFR (CKD) >90 (>60 ml/min/1.73 sqM); Albumin 4.4 g/dL (3.5-5.0); Alkaline Phosphatase 71 U/L (38-126); Anion Gap 11 mmol/L; Blood Urea Nitrogen 12 mg/dL (9-20); Calcium 9.4 mg/dL (8.4-10.2); Carbon Dioxide 20 mmol/L (22-30); Chloride 107 mmol/L (98-107); Glucose 86 mg/dL (74-99); Magnesium 2.1 mg/dL (1.6-2.3); Non-African American GFR(CKD) >90 (>60 ml/min/1.73 sqM); Potassium 4.5 mmol/L (3.5-5.1); Sodium 138 mmol/L (137-145); Total Bilirubin 1.3 mg/dL (0.2-1.3); Total Protein 7.7 g/dL (6.3-8.2)
[2020-07-29 16:18] LABS: D-Dimer 0.18 mg/L FEU (<0.60); INR 0.9 (<1.2); Partial Thromboplastin Time 25.4 sec (22.0-30.0); Prothrombin Time 9.9 sec (9.0-12.0)
[2020-07-29] MEDS ORDERED: ACETAMINOPHEN TAB 500 MG TAB PO STA (17:49)
[2020-07-29] MEDS ORDERED: ASPIRIN 325 MG TAB PO STA (17:59)
[2020-07-29] MEDS ORDERED: NITROGLYCERIN SL TABS 0.4 MG TAB SUBLINGUAL PRN (18:18)
[2020-07-30] MEDS: Acetaminophen-Codeine 300-30mg TAB PO PRN ×2 (01:24→09:15)
--- NOTE | 2020-07-30 01:37 | P.HPIM ---
History of Present Illness H&P Date: 07/29/20 Chief Complaint: worsening chest pain 40 year old male with hypertension , hyperlipidemia patient comes in due to worsening chest pain , he was recently diagnosed with COVID 19 (on July 25) and discharged home. he was going over paper work and instruction s, and found recommendations to come back to the ED if he starts experiencing worsening chest pain , for which he decided to come in for evaluation . he reports pressure like chest pain 8/10 in severity , associated with feeling nauseous and slight vomiting, he continues to have SOB, fever, chills, and diffuse body aches, he denies any GI bleeding, urinary changes, denies loss of smell or taste sensation, in the ED, oxygen sat 97% on room air, CXR no acute patho, ddimer negative, trops negative EKG no acute ST changes patient had cath done 11 years ago , and was normal , (he claims it was done due to scarring over his heart (which made his depot agent concerned for blockages) from multiple DC shocks when he was an infant with meningitis) Review of Systems Pertinent positives as noted in HPI. All other systems were reviewed and are negative Past Medical History Past Medical History: Asthma, Hyperlipidemia, Hypertension Additional Past Medical History / Comment(s): back pain, meningitis as History of Any Multi-Drug Resistant Organisms: None Reported Past Surgical History: Heart Catheterization, Orthopedic Surgery Additional Past Surgical History / Comment(s): heart cath no stents, left thumb surgery, ESWL Past Anesthesia/Blood Transfusion Reactions: No Reported Reaction Past Psychological History: ADD/ADHD, Bipolar Smoking Status: Former smoker Past Alcohol Use History: Occasional Past Drug Use History: None Reported - Past Family History Mother Family Medical History: Hypertension Medications and Allergies Home Medications Medication Instructions Recorded Confirmed Type Aspirin EC [Ecotrin] 325 mg PO HS 04/01/20 07/29/20 History Atorvastatin [Lipitor] 40 mg PO HS 04/01/20 07/29/20 History Cholecalciferol (Vitamin D3) 125 mcg PO HS 07/13/20 07/29/20 History [Vitamin D3 (5000 Iu)] Acetaminophen-Codeine 300-30mg 1 tab PO Q6H PRN 07/29/20 07/29/20 History [Tylenol w/codeine #3] Allergies Allergy/AdvReac Type Severity Reaction Status Date / Time erythromycin base Allergy Anaphylaxis Verified 07/29/20 15:47 [Erythromycin Base] Penicillins Allergy Anaphylaxis Verified 07/29/20 15:47 sulfamethoxazole Allergy Anaphylaxis Verified 07/29/20 15:47 [From ] trimethoprim [From ] Allergy Anaphylaxis Verified 07/29/20 15:47 morphine AdvReac Hallucinati Verified 07/29/20 15:47 ons Physical Exam Vitals: Vital Signs Temp Pulse Resp BP Pulse Ox 07/29/20 20:07 99.1 F 58 L 16 122/88 99 07/29/20 18:30 60 18 116/97 99 07/29/20 18:00 62 16 122/110 98 07/29/20 17:30 60 16 116/101 99 07/29/20 17:00 59 L 18 132/80 97 07/29/20 16:30 59 L 22 132/94 97 07/29/20 16:18 18 07/29/20 16:00 57 L 12 124/85 95 07/29/20 15:30 60 16 97 07/29/20 15:05 68 17 98 07/29/20 13:20 98.1 F 71 18 124/80 99 Intake and Output 07/29/20 07/29/20 07/29/20 06:59 14:59 22:59 Other: Weight 108.862 kg Constitutional: No acute distress, conversant, pleasant Eyes: Anicteric sclerae, moist conjunctiva, Pupils equal round reactive to light ENMT: NC/AT Oropharynx clear, no erythema, or exudates Neck: Supple, FROM, no masses, or JVD No carotid bruits No thyromegaly Lungs: Clear to auscultation Clear to percussion Normal respiratory effort, no accessory muscle use Cardiovascular: Heart regular in rate and rhythm, No murmurs, gallops, or rubs No peripheral edema Abdominal: Soft Nontender, no guarding, rebound or rigidity Abdomen moving with respiration Normoactive bowel sounds No hepatomegaly, No splenomegaly No palpable mass No abdominal wall hernia noted Skin: Normal temperature, tone, texture, turgor No induration No subcutaneous nodules No rash, lesions No ulcers Extremities: No digital cyanosis No clubbing Pedal pulses intact and symmetrical Radial pulses intact and symmetrical No calf tenderness Psychiatric: Alert and oriented to person, place and time Appropriate affect fair judgement Neuro Muscles Strength 5/5 in all 4 extremities Sensation to light touch grossly present throughout Cranial nerves II-XII grossly intact No focal sensory deficits Lymphatics: no palpable cervical or supraclavicular , or inguinal lymph nodes Results CBC & Chem 7: 07/29/20 14:14 07/29/20 14:14 Labs: Abnormal Lab Results - Last 24 Hours (Table) 07/29/20 07/29/20 Range/Units 14:14 14:14 RBC 6.30 H (4.30-5.90) m/uL Hgb 17.8 H (13.0-17.5) gm/dL Hct 53.1 H (39.0-53.0) % Carbon Dioxide 20 L (22-30) mmol/L Assessment and Plan Assessment: chest pain , rule out ACS COVID 19 positive plan monitoring and evaluation advisor cardiology consult cardiac enzymes monitor pain control supplemental oxygen as needed ASA, statin lipid profile follow up labs EKG no acute ST changes CODE STATUS:full code DVT prophylaxis: lovenox Discussed with: Patient, ER, RN Anticipated length of stay < than [address]: home A total of 65 minutes was spent on the care of this complex patient more than 50% of the time was spent in counseling and care coordination.
[2020-07-30 07:46] VITALS: RESP 18
[2020-07-30] MEDS ORDERED: ASPIRIN 325 MG TAB PO SCH ×2 (09:00→21:00)
[2020-07-30] MEDS ORDERED: ENOXAPARIN 40 MG/0.4 ML SYRINGE SQ SCH (09:00)
--- NOTE | 2020-07-30 09:32 | P.CRDCN ---
History of Present Illness History of present illness: HISTORY OF PRESENTING ILLNESS This is a pleasant 39-year-old male past medical history significant for hyperlipidemia and possible CVA in 12/2019 . He follows with a operation manager, Dr. Bob, has not seen him in some time. We have been asked to see in consultation for chest pain. Patient presents to the emergency department with worsening chest pain. Patient was recently diagnosed with COVID- 19 on July 25. He was going over his discharge instructions and found recommendations to come back to the ED if he starts experiencing worsening chest pain. He describes his chest pain as a 8/10 pressure. Pain is non-radiating. Aggravating symptoms include some activity. Alleviated symptoms include Tylenol. He continues to have SOB, fever, chills and diffuse body aches. He has associated nausea. He denies diaphoresis. Patient states he had a cardiac catheterization about 11 years ago at [facility] with Dr. Bob and was told it was normal. He states this was done due to "scarring over his hear" which made his operation manager concerned for blockages. He is a former smoker, quit 13 years ago. Denies history of Hypertension, HI, Stroke, or Diabetes. Denies alcohol or illicit drug use. Laboratory data reviewed, troponin negative x 3, D-dimer 0.18, Na 138, K 4.5, serum creatinine 0.70, BUN 12, Magnesium 2.1, BNP 25, liver enzymes within normal limits. Vital signs BP 104/65, HR 62, afebrile, SpO2 99% on room air. Current home cardiac medications include atorvastatin 40mg nightly, aspirin 325mg nightly. DIAGNOSTICS Most recent echocardiogram 12/2019left ventricular systolic function is normal with EF between 5560 percent, trace MR, trace TR Dobutamine stress Echo test 2017- negative for stress-induced ischemia, Occasional PVCs and one episode of NSVT was noted due to dobutamine EKG reveals normal sinus rhythm with T wave Inversion in lead III, significant St-T wave abnormalities. Similar to prior EKG Telemetry tracings indicate sinus mechanism . Chest xray No acute pulmonary process. REVIEW OF SYSTEMS At the time of my exam: CONSTITUTIONAL: +fever or chills. CARDIOVASCULAR: +chest pain, +shortness of breath, Denies orthopnea, PND or palpitations. RESPIRATORY: +cough. GASTROINTESTINAL: Denies abdominal pain, diarrhea, constipation, nausea or vomiting. MUSCULOSKELETAL: Denies myalgias. NEUROLOGIC: Denies numbness, tingling, headacbe or weakness. ENDOCRINE: Denies fatigue, weight change, polydipsia or polyurina. GENITOURINARY: Denies burning, hematuria or urgency with micturation. HEMATOLOGIC: Denies history of anemia or bleeding. PHYSICAL EXAMINATION Patient seen, Thorough physical exam not performed due to COVID-19 CONSTITUTIONAL: No apparent distress. NEUROLOGIC EXAMINATION: Patient is awake, alert and oriented x3. ASSESSMENT Chest pain, atypical acute coronary event has been ruled out, most likely related to COVID-19 infection COVID-19 infection History of CVA Hyperlipidemia PLAN An acute coronary event has been ruled out with no EKG evidence of ischemia and negative cardiac enzymes. No further cardiac workup at this time Patient states that his is setting up an appointment with him with Dr. Bob and this is the cardiolgist he would like to see Recommend Following up with Dr. Bob at scheduled appointment. Thank you kindly for this consultation. Nurse Practitioner note has been reviewed, I agree with a documented findings and plan of care. Patient was seen and examined. Past Medical History Past Medical History: Asthma, Hyperlipidemia, Hypertension Additional Past Medical History / Comment(s): back pain, meningitis as History of Any Multi-Drug Resistant Organisms: None Reported Past Surgical History: Heart Catheterization, Orthopedic Surgery Additional Past Surgical History / Comment(s): heart cath no stents, left thumb surgery, ESWL Past Anesthesia/Blood Transfusion Reactions: No Reported Reaction Past Psychological History: ADD/ADHD, Bipolar Smoking Status: Former smoker Past Alcohol Use History: Occasional Past Drug Use History: None Reported - Past Family History Mother Family Medical History: Hypertension Medications and Allergies Home Medications Medication Instructions Recorded Confirmed Type Aspirin EC [Ecotrin] 325 mg PO HS 04/01/20 07/29/20 History Atorvastatin [Lipitor] 40 mg PO HS 04/01/20 07/29/20 History Cholecalciferol (Vitamin D3) 125 mcg PO HS 07/13/20 07/29/20 History [Vitamin D3 (5000 Iu)] dexAMETHasone [Dexamethasone] 6 mg PO DAILY #15 tablet 07/30/20 Rx traMADol HCl [Ultram] 50 mg PO Q6HR PRN 3 Days #12 tab 07/30/20 Rx Allergies Allergy/AdvReac Type Severity Reaction Status Date / Time erythromycin base Allergy Anaphylaxis Verified 07/29/20 15:47 [Erythromycin Base] Penicillins Allergy Anaphylaxis Verified 07/29/20 15:47 sulfamethoxazole Allergy Anaphylaxis Verified 07/29/20 15:47 [From ] trimethoprim [From ] Allergy Anaphylaxis Verified 07/29/20 15:47 morphine AdvReac Hallucinati Verified 07/29/20 15:47 ons Physical Exam Vitals: Vital Signs Temp Pulse Pulse Resp BP Pulse Ox 07/30/20 05:00 98.2 F 57 L 20 102/71 97 07/30/20 00:30 97.7 F 74 74 18 128/86 96 07/29/20 23:00 63 14 131/93 97 07/29/20 20:07 99.1 F 58 L 16 122/88 99 07/29/20 18:30 60 18 116/97 99 07/29/20 18:00 62 16 122/110 98 07/29/20 17:30 60 16 116/101 99 07/29/20 17:00 59 L 18 132/80 97 07/29/20 16:30 59 L 22 132/94 97 07/29/20 16:18 18 07/29/20 16:00 57 L 12 124/85 95 07/29/20 15:30 60 16 97 07/29/20 15:05 68 17 98 07/29/20 13:20 98.1 F 71 18 124/80 99 Intake and Output 07/29/20 07/29/20 07/30/20 14:59 22:59 06:59 Output Total 450 Balance -450 Output: Urine 450 Other: # Voids 1 Weight 108.862 kg Results 07/29/20 14:14 07/29/20 14:14 Cardiac Enzymes 07/29/20 07/29/20 07/29/20 Range/Units 14:14 14:14 18:55 AST 41 (17-59) U/L Troponin I <0.012 <0.012 (0.000-0.034) ng/mL 07/29/20 Range/Units 21:52 AST (17-59) U/L Troponin I <0.012 (0.000-0.034) ng/mL Coagulation 07/29/20 Range/Units 14:33 PT 9.9 (9.0-12.0) sec APTT 25.4 (22.0-30.0) sec CBC 07/29/20 Range/Units 14:14 WBC 5.0 (3.8-10.6) k/uL RBC 6.30 H (4.30-5.90) m/uL Hgb 17.8 H (13.0-17.5) gm/dL Hct 53.1 H (39.0-53.0) % Plt Count 222 (150-450) k/uL Comprehensive Metabolic Panel 07/29/20 Range/Units 14:14 Sodium 138 (137-145) mmol/L Potassium 4.5 (3.5-5.1) mmol/L Chloride 107 (98-107) mmol/L Carbon Dioxide 20 L (22-30) mmol/L BUN 12 (9-20) mg/dL Creatinine 0.70 (0.66-1.25) mg/dL Glucose 86 (74-99) mg/dL Calcium 9.4 (8.4-10.2) mg/dL AST 41 (17-59) U/L ALT 44 (4-49) U/L Alkaline Phosphatase 71 (38-126) U/L Total Protein 7.7 (6.3-8.2) g/dL Albumin 4.4 (3.5-5.0) g/dL Current Medications Generic Name Dose Route Start Last Admin Trade Name Freq PRN Reason Stop Dose Admin Acetaminophen/Codeine Phosphate 1 each 07/30/20 01:07 07/30/20 01:24 Acetaminophen-Codeine 300-30mg Tab PO 1 each Q6H PRN Administration Pain Aspirin 325 mg 07/30/20 09:00 Aspirin 325 Mg Tab PO DAILY [facility] Atorvastatin Calcium 40 mg 07/30/20 21:00 Atorvastatin 40 Mg Tab PO HS [facility] Enoxaparin Sodium 40 mg 07/30/20 09:00 Enoxaparin 40 Mg/0.4 Ml Syringe SQ DAILY IRINA Nitroglycerin 0.4 mg 07/29/20 18:18 Nitroglycerin Sl Tabs 0.4 Mg Tab SUBLINGUAL Q5M PRN Chest Pain Intake and Output 07/29/20 07/29/20 07/30/20 14:59 22:59 06:59 Output Total 450 Balance -450 Output: Urine 450 Other: # Voids 1 Weight 108.862 kg Patient Weight 07/30/20 06:59 Weight 108.862 kg 07/29/20 14:14 07/29/20 14:14
[2020-07-30 12:18] VITALS: BP 113/64; PULSE 57; TEMP 98.9
[2020-07-30 12:41] LABS: Chol/HDL Ratio 5.73; LDL Cholesterol,Calculated 102.4 mg/dL (0.0-131.0); VLDL Calculation 20.6 mg/dL (5.00-40.00)
--- NOTE | 2020-07-30 15:13 | P.DS ---
Providers Date of admission: 07/29/20 17:49 Expected date of discharge: 07/30/20 Attending physician: Ryan Bravo MD Consults: 07/29/20 18:19 Consult Physician Urgent Consulting Provider: Awais Cancino Consult Reason/Comments: Chest pain, serial troponins Do you want consulting provider notified?: Yes Primary care physician: Jermain Alvarez MD Hospital Course: Discharge Diagnosis: Pleurisy secondary to COVID-19 Covid 19 infection Hypertension Dyslipidemia Obesity with BMI 32.5 Hospital Course: Patient is a 40-year-old male with asthma, hypertension, and dyslipidemia who was diagnosed with COVID 19 on July 25. He presented to the ER secondary to worsening chest discomfort. In the ER he underwent extensive evaluation. His initial troponin was negative, EKG revealed no significant ST segment changes. Chest x-ray was negative for acute process. D-dimer was within normal limits. He was placed in observation for chest pain. Remainder of his troponins were negative. He was cleared by cardiology. He was determined stable for discharge. He was given a prescription for Ultram as well as Decadron for his pleurisy. He was offered Motrin but declined as he stated it made the pain worse at home. Unfortunately, patient does not qualify for monoclonal antibody as he does not have a BMI greater than 35. Patient seen and examined at bedside. He continues to have chest pain with deep inspiration, have a cough, still feeling fatigued. We discussed that his cardiac workup was essentially negative and that this was likely coming from his Covid. We discussed pain medication plans as above. Vital signs reviewed and stable. General: ill appearing, no distress, appears at stated age, fatigued, sunken in eyes Derm: warm, dry Head: atraumatic, normocephalic, symmetric Eyes: EOMI, no lid lag, anicteric sclera Mouth: no lip lesion, mucus membranes moist Cardiovascular: S1S2 reg, no murmur, positive posterior tibial pulse bilateral, Lungs: CTA bilateral, no rhonchi, no rales , no accessory muscle use Abdominal: soft, nontender to palpation, no guarding, no appreciable organomega ly Ext: no gross muscle atrophy, no edema, no contractures Neuro: CN II-XI grossly intact, no focal neuro deficits Psych: Alert, oriented, appropriate affect A total of 25 minutes of time were spent preparing this complex discharge summary . Patient Condition at Discharge: Stable Plan - Discharge Summary New Discharge Prescriptions: New dexAMETHasone [Dexamethasone] 6 mg PO DAILY #15 tablet traMADol HCl [Ultram] 50 mg PO Q6HR PRN 3 Days #12 tab PRN Reason: Pain Continue RX: Aspirin EC [Ecotrin] 325 mg PO HS RX: Atorvastatin [Lipitor] 40 mg PO HS RX: Cholecalciferol (Vitamin D3) [Vitamin D3 (5000 Iu)] 125 mcg PO HS Discontinued Acetaminophen-Codeine 300-30mg [Tylenol w/codeine #3] 1 tab PO Q6H PRN PRN Reason: Pain Discharge Medication List RX: Aspirin EC [Ecotrin] 325 mg PO HS 04/01/20 [History] RX: Atorvastatin [Lipitor] 40 mg PO HS 04/01/20 [History] RX: Cholecalciferol (Vitamin D3) [Vitamin D3 (5000 Iu)] 125 mcg PO HS 07/13/20 [History] dexAMETHasone [Dexamethasone] 6 mg PO DAILY #15 tablet 07/30/20 [Rx] traMADol HCl [Ultram] 50 mg PO Q6HR PRN 3 Days #12 tab 07/30/20 [Rx] Follow up Appointment(s)/Referral(s): Thompson Bob MD [REFERRING] - 2 Weeks Jermain Alvarez MD [Primary Care Provider] - 1-2 days Patient Instructions/Handouts: Coronavirus Disease 2019 (COVID-19), Chest Pain (ED) Activity/Diet/Wound Care/Special Instructions: Activity: As tolerated Diet: regular Discharge Disposition: HOME SELF-CARE
[2020-07-30] MEDS ORDERED: ATORVASTATIN 40 MG TAB PO SCH (21:00)
== END 2020-07-30 12:19 | disposition home or self-care (01) ==
LOC: EC 13:04 → 6NMEDSUR 17:49
PROVIDERS: ADMIT Internal Medicine; ATTEND Internal Medicine
DX: U07.1 COVID-19 (principal); R09.1 Pleurisy; E86.0 Dehydration; R07.89 Other chest pain; E78.5 Hyperlipidemia, unspecified; I10 Essential (primary) hypertension; J45.909 Unspecified asthma, uncomplicated; M54.9 Dorsalgia, unspecified; F31.9 Bipolar disorder, unspecified; F90.9 Attention-deficit hyperactivity disorder, unspecified type; E66.9 Obesity, unspecified; Z68.32 Body mass index [BMI] 32.0-32.9, adult; Z79.82 Long term (current) use of aspirin; Z79.899 Other long term (current) drug therapy; Z88.1 Allergy status to other antibiotic agents; Z88.5 Allergy status to narcotic agent; Z88.0 Allergy status to penicillin; Z88.2 Allergy status to sulfonamides; Z88.8 Allergy status to other drugs, medicaments and biological substances; Z86.61 Personal history of infections of the central nervous system; Z87.891 Personal history of nicotine dependence; Z98.890 Other specified postprocedural states; Z86.73 Personal history of transient ischemic attack (TIA), and cerebral infarction without residual deficits; Z82.49 Family history of ischemic heart disease and other diseases of the circulatory system
CPT/HCPCS: 96372; 99285; 36415; 93005 ×2; 85379; 83880; 80061; 80053; 83735; 84484; 85025; 85610; 85730; 71046; G0378 ×2; J1650

== ENCOUNTER 2020-08-11 08:31 | Emergency (ER) | payer OTHER ==
[2020-08-11 08:38] VITALS: BP 124/84; PULSE 59; RESP 18; TEMP 97.4
[2020-08-11] MEDS ORDERED: KETOROLAC 15 MG/ML 1 ML VIAL IM STA (08:52)
--- NOTE | 2020-08-11 08:54 | ED ---
General Adult HPI - General Chief complaint: Extremity Injury, Upper Stated complaint: L wrist injury Time Seen by Provider: 08/11/20 08:43 Source: patient, RN notes reviewed Mode of arrival: ambulatory Limitations: physical limitation - History of Present Illness Initial comments: Patient is a pleasant 40-year-old male presenting to the emergency Department with complaints of left wrist and forearm discomfort. Onset of symptoms was yesterday. 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 Patient does have history of carpal tunnel however that is usually in the wrist and hand. This time seems more proximal to the wrist and does extend up. Patient states the area feels swollen. No chest pain or dyspnea. No direct trauma to this region. Discomfort is greatly increased with movement. - Related Data Home Medications Medication Instructions Recorded Confirmed Aspirin EC [Ecotrin] 325 mg PO HS 04/01/20 07/29/20 Atorvastatin [Lipitor] 40 mg PO HS 04/01/20 07/29/20 Cholecalciferol (Vitamin D3) 125 mcg PO HS 07/13/20 07/29/20 [Vitamin D3 (5000 Iu)] Previous Rx's Medication Instructions Recorded dexAMETHasone [Dexamethasone] 6 mg PO DAILY #15 tablet 07/30/20 traMADol HCl [Ultram] 50 mg PO Q6HR PRN 3 Days #12 tab 07/30/20 Ibuprofen [Motrin] 600 mg PO Q6HR PRN #20 tab 08/11/20 Allergies Allergy/AdvReac Type Severity Reaction Status Date / Time erythromycin base Allergy Anaphylaxis Verified 08/11/20 08:38 [Erythromycin Base] Penicillins Allergy Anaphylaxis Verified 08/11/20 08:38 sulfamethoxazole Allergy Anaphylaxis Verified 08/11/20 08:38 [From Septra] trimethoprim [From Decra] Allergy Anaphylaxis Verified 08/11/20 08:38 morphine AdvReac Hallucinati Verified 08/11/20 08:38 ons Review of Systems ROS Statement: Those systems with pertinent positive or pertinent negative responses have been documented in the HPI. ROS Other: All systems not noted in ROS Statement are negative. Constitutional: Denies: fever Eyes: Denies: eye pain ENT: Denies: ear pain Respiratory: Denies: cough Cardiovascular: Denies: chest pain Endocrine: Denies: fatigue Gastrointestinal: Denies: abdominal pain Genitourinary: Denies: dysuria Musculoskeletal: Reports: as per HPI Skin: Denies: rash Neurological: Denies: weakness Past Medical History Past Medical History: Asthma, Hyperlipidemia, Hypertension Additional Past Medical History / Comment(s): back pain, meningitis as History of Any Multi-Drug Resistant Organisms: None Reported Past Surgical History: Heart Catheterization, Orthopedic Surgery Additional Past Surgical History / Comment(s): heart cath no stents, left thumb surgery, ESWL Past Anesthesia/Blood Transfusion Reactions: No Reported Reaction Past Psychological History: ADD/ADHD, Bipolar Smoking Status: Former smoker Past Alcohol Use History: Occasional Past Drug Use History: None Reported - Past Family History Mother Family Medical History: Hypertension General Exam Limitations: physical limitation General appearance: alert, in no apparent distress Head exam: Present: atraumatic Eye exam: Present: normal appearance Neck exam: Present: normal inspection Respiratory exam: Present: normal lung sounds bilaterally Cardiovascular Exam: Present: regular rate, normal rhythm Expanded Peripheral pulses: 2+: Radial (L) GI/Abdominal exam: Present: soft. Absent: tenderness Extremities exam: Present: tenderness (Patient has tenderness left wrist and just proximal to this. There is minimal swelling. No tenderness of the proximal forearm or upper arm. Pain with passive range of motion at the wrist. Distally extremity is neurovascular intact.), other (No warmth or erythema) Neurological exam: Present: alert Psychiatric exam: Present: normal affect, normal mood Skin exam: Present: normal color. Absent: erythema Course Vital Signs 08/11/20 08:35 Temperature 97.4 F L Pulse Rate 59 L Respiratory 18 Rate Blood Pressure 124/84 O2 Sat by Pulse 96 Oximetry Procedures - Orthopedic Splinting/Casting Injury #1 Side: left Upper Extremity Injury Location: short arm, wrist Upper Extremity Immobilizer: volar splint Medical Decision Making - Medical Decision Making Patient reevaluated and updated, advised no use left arm until released by - Radiology Data Radiology results: image reviewed (Left wrist and forearm x-ray revealed no acute abnormality) Disposition Clinical Impression: Tendinitis of left forearm Disposition: HOME SELF-CARE Condition: Stable Instructions (If sedation given, give patient instructions): Wrist Injury (ED), Tendinitis (ED) Additional Instructions: Please do follow-up with primary care physician or [facility] in the next day or 2 for recheck. No use left arm until released by Prescription [facility] Motrin [facility]. Return for increased pain, swelling, redness or fever, worsening symptoms or any other concerns. Prescriptions: Ibuprofen [Motrin] 600 mg PO Q6HR PRN #20 tab PRN Reason: Pain Is patient prescribed a controlled substance at d/c from ED?: No Referrals: [facility] [Primary Care Provider] - 1-2 days Time of Disposition: 10:04
--- NOTE | 2020-08-11 09:20 | XR ---
EXAMINATION TYPE: XR forearm LT, XR wrist complete LT DATE OF EXAM: 08/11/2020 CLINICAL HISTORY: Pain. TECHNIQUE: Two views of the left forearm are obtained. 4 views of left wrist. COMPARISON: None. FINDINGS: There is no acute fracture or dislocation seen in the left radius or ulna. The left elbow within normal limits. The overlying soft tissue appears within normal limits. Images of left wrist show no acute fracture or dislocation. Carpal joint spaces are maintained. Overl audrey soft tissues unremarkable. IMPRESSION: As above.
== END 2020-08-11 10:11 | disposition home or self-care (01) ==
LOC: EC 08:31
DX: M77.8 Other enthesopathies, not elsewhere classified (principal); E78.5 Hyperlipidemia, unspecified; I10 Essential (primary) hypertension; J45.909 Unspecified asthma, uncomplicated; Z79.52 Long term (current) use of systemic steroids; Z79.82 Long term (current) use of aspirin; Z87.891 Personal history of nicotine dependence; Z88.0 Allergy status to penicillin
CPT/HCPCS: 73090; 73110; 99283; 96372; J1885

== ENCOUNTER → 2020-09-15 | Outpatient (CLI) | payer OTHER ==
--- NOTE | 2020-09-15 11:12 | XR ---
Left hand HISTORY: Metal and hand, trauma, M 79.642, S56.812D 3 views of the left hand Bone mineralization, joint spaces and alignment are maintained. No fracture or dislocation. No radiop aque foreign body. IMPRESSION: No significant abnormalities evident
== END | disposition home or self-care (01) ==
LOC: RADXRMAIN 08:49
PROVIDERS: ATTEND Emergency Medicine
DX: M79.642 Pain in left hand (principal)

== ENCOUNTER 2020-09-18 22:38 | Emergency (ER) | payer OTHER ==
[2020-09-18 22:54] VITALS: TEMP 98
[2020-09-18] MEDS ORDERED: Acetaminophen-Codeine 300-30mg TAB PO STA (23:10)
[2020-09-18] MEDS ORDERED: IBUPROFEN 800 MG TAB PO STA (23:10)
[2020-09-18] MEDS ORDERED: ACET/COD 300 MG/30 MG STARTER PACK 6 TAB BTL PO STA (23:10)
[2020-09-18] MEDS ORDERED: CLINDAMYCIN 150 MG CAP PO STA (23:10)
[2020-09-18] MEDS ORDERED: IBUPROFEN 600 MG STARTER PACK 4 TAB BTL PO STA (23:10)
[2020-09-18] MEDS ORDERED: DEXAMETHASONE SOD PHOSPHATE 10 MG/ML 1 ML VIAL IM STA (23:11)
--- NOTE | 2020-09-18 23:12 | ED ---
ENT HPI - General Chief complaint: Dental/Oral Stated complaint: Tooth pain Time Seen by Provider: 09/18/20 22:50 Source: patient Mode of arrival: ambulatory Limitations: no limitations - Related Data Home Medications Medication Instructions Recorded Confirmed Aspirin EC [Ecotrin] 325 mg PO HS 04/01/20 07/29/20 Atorvastatin [Lipitor] 40 mg PO HS 04/01/20 07/29/20 Cholecalciferol (Vitamin D3) 125 mcg PO HS 07/13/20 07/29/20 [Vitamin D3 (5000 Iu)] Previous Rx's Medication Instructions Recorded dexAMETHasone [Dexamethasone] 6 mg PO DAILY #15 tablet 07/30/20 traMADol HCl [Ultram] 50 mg PO Q6HR PRN 3 Days #12 tab 07/30/20 Ibuprofen [Motrin] 600 mg PO Q6HR PRN #20 tab 08/11/20 clindamycin HCL [Cleocin] 300 mg PO Q6HR #40 cap 09/18/20 Allergies Allergy/AdvReac Type Severity Reaction Status Date / Time erythromycin base Allergy Anaphylaxis Verified 09/18/20 22:54 [Erythromycin Base] Penicillins Allergy Anaphylaxis Verified 09/18/20 22:54 sulfamethoxazole Allergy Anaphylaxis Verified 09/18/20 22:54 [From Septra] trimethoprim [From Septra] Allergy Anaphylaxis Verified 09/18/20 22:54 morphine AdvReac Hallucinati Verified 09/18/20 22:54 ons Review of Systems ROS Statement: Those systems with pertinent positive or pertinent negative responses have been documented in the HPI. ROS Other: All systems not noted in ROS Statement are negative. Past Medical History Past Medical History: Asthma, Hyperlipidemia, Hypertension Additional Past Medical History / Comment(s): back pain, meningitis as History of Any Multi-Drug Resistant Organisms: None Reported Past Surgical History: Heart Catheterization, Orthopedic Surgery Additional Past Surgical History / Comment(s): heart cath no stents, left thumb surgery, ESWL Past Anesthesia/Blood Transfusion Reactions: No Reported Reaction Past Psychological History: ADD/ADHD, Bipolar Smoking Status: Former smoker Past Alcohol Use History: Occasional Past Drug Use History: None Reported - Past Family History Mother Family Medical History: Hypertension General Exam Limitations: no limitations Course Vital Signs 09/18/20 22:52 Temperature 98 F Pulse Rate 98 Respiratory 20 Rate Blood Pressure 137/87 O2 Sat by Pulse 97 Oximetry Disposition Clinical Impression: Dental abscess, Dental caries Disposition: HOME SELF-CARE Condition: Good Instructions (If sedation given, give patient instructions): Dental Abscess (ED), Toothache (ED) Prescriptions: clindamycin HCL [Cleocin] 300 mg PO Q6HR #40 cap Is patient prescribed a controlled substance at d/c from ED?: No Referrals: [facility] [Primary Care Provider] - 1-2 days
[2020-09-18] MEDS ORDERED: diazePAM 5 MG TAB PO STA (23:28)
[2020-09-18 23:35] VITALS: BP 147/77; PULSE 90; RESP 18
== END 2020-09-18 23:35 | disposition home or self-care (01) ==
LOC: EC 22:38
DX: K04.7 Periapical abscess without sinus (principal); K02.9 Dental caries, unspecified; I10 Essential (primary) hypertension; E78.5 Hyperlipidemia, unspecified; J45.909 Unspecified asthma, uncomplicated; F90.9 Attention-deficit hyperactivity disorder, unspecified type; Z87.891 Personal history of nicotine dependence; Z79.82 Long term (current) use of aspirin; Z88.0 Allergy status to penicillin
CPT/HCPCS: 99282; 96372; J1100

== ENCOUNTER 2020-11-24 13:22 | Emergency (ER) | payer OTHER ==
[2020-11-24 13:47] VITALS: BP 129/83; PULSE 68; RESP 17; TEMP 97.7
[2020-11-24] MEDS ORDERED: FAMOTIDINE 20 MG TAB PO STA (14:08)
[2020-11-24] MEDS ORDERED: predniSONE 50 MG TAB PO STA (14:08)
[2020-11-24] MEDS ORDERED: diphenhydrAMINE 50 MG/ML 1 ML VIAL IM STA (14:08)
--- NOTE | 2020-11-24 14:16 | ED ---
Allergic Reaction HPI - General Chief complaint: Allergic Reaction Stated complaint: IHS L arm swelling Time Seen by Provider: 11/24/20 13:51 Source: patient, RN notes reviewed Mode of arrival: ambulatory Limitations: no limitations - History of Present Illness Initial Comments: This a 40-year-old male presents emergency Department with chief complaint ALLERGIC reaction. Patient states he believes he was stung by a bee has left arm. He states it hurts swelling. Started he started having some shortness breath and chest tightness from it. Patient is not taking medications. He's never had a reaction like this in the past. He states he feels slightly better at this time. Patient states is a small tammy on his left arm denies being poked or cut by anything at work. - Related Data Home Medications Medication Instructions Recorded Confirmed Aspirin EC [Ecotrin] 325 mg PO HS 04/01/20 11/24/20 Atorvastatin [Lipitor] 40 mg PO HS 04/01/20 11/24/20 Allergies Allergy/AdvReac Type Severity Reaction Status Date / Time erythromycin base Allergy Anaphylaxis Verified 11/24/20 14:54 [Erythromycin Base] Penicillins Allergy Anaphylaxis Verified 11/24/20 14:54 sulfamethoxazole Allergy Anaphylaxis Verified 11/24/20 14:54 [From Septra] trimethoprim [From Septra] Allergy Anaphylaxis Verified 11/24/20 14:54 morphine AdvReac Hallucinati Verified 11/24/20 14:54 ons Review of Systems ROS Statement: Those systems with pertinent positive or pertinent negative responses have been documented in the HPI. ROS Other: All systems not noted in ROS Statement are negative. Past Medical History Past Medical History: Asthma, Hyperlipidemia, Hypertension Additional Past Medical History / Comment(s): back pain, meningitis as infant History of Any Multi-Drug Resistant Organisms: None Reported Past Surgical History: Heart Catheterization, Orthopedic Surgery Additional Past Surgical History / Comment(s): heart cath no stents, left thumb surgery, ESWL Past Anesthesia/Blood Transfusion Reactions: No Reported Reaction Past Psychological History: ADD/ADHD, Bipolar Smoking Status: Former smoker Past Alcohol Use History: Occasional Past Drug Use History: None Reported - Past Family History Mother Family Medical History: Hypertension General Exam Limitations: no limitations General appearance: alert, in no apparent distress Head exam: Present: atraumatic, normocephalic, normal inspection Eye exam: Present: normal appearance, PERRL, EOMI. Absent: scleral icterus, conjunctival injection, periorbital swelling Neck exam: Present: normal inspection, full ROM. Absent: tenderness, meningismus, lymphadenopathy Respiratory exam: Present: normal lung sounds bilaterally. Absent: respiratory distress, wheezes, rales, rhonchi, stridor Cardiovascular Exam: Present: regular rate, normal rhythm, normal heart sounds. Absent: systolic murmur, diastolic murmur, rubs, gallop, clicks Neurological exam: Present: alert Skin exam: Present: warm, dry, intact, normal color. Absent: rash Course Vital Signs 11/24/20 13:43 Temperature 97.7 F Pulse Rate 68 Respiratory 17 Rate Blood Pressure 129/83 O2 Sat by Pulse 98 Oximetry Medical Decision Making - Medical Decision Making Patient presented for ALLERGIC reaction related to a bee sting. Patient has not worsened symptoms have improved patient we discharged stable condition. Disposition Clinical Impression: Bee sting Disposition: HOME SELF-CARE Condition: Stable Instructions (If sedation given, give patient instructions): Insect Bite or Sting (ED) Additional Instructions: Please return to the Emergency Department if symptoms worsen or any other concerns. Is patient prescribed a controlled substance at d/c from ED?: No Referrals: [facility] [Primary Care Provider] - 1-2 days Time of Disposition: 14:58
== END 2020-11-24 15:09 | disposition home or self-care (01) ==
LOC: EC 13:22
DX: T63.441A Toxic effect of venom of bees, accidental (unintentional), initial encounter (principal); J45.909 Unspecified asthma, uncomplicated; I10 Essential (primary) hypertension; E78.5 Hyperlipidemia, unspecified; F31.9 Bipolar disorder, unspecified; F90.9 Attention-deficit hyperactivity disorder, unspecified type; Z87.891 Personal history of nicotine dependence; Z79.82 Long term (current) use of aspirin; Z88.0 Allergy status to penicillin
CPT/HCPCS: 99284; 96372; J1200; J7512

== ENCOUNTER 2021-01-18 10:29 | Observation (INO) | payer OTHER ==
[2021-01-18] MEDS ORDERED: ASPIRIN 81 MG PO STA (11:19)
[2021-01-18] MEDS ORDERED: NITROGLYCERIN OINT 1 INCH/GM PACKET TOPICAL STA (11:19)
--- NOTE | 2021-01-18 11:30 | ED ---
General Adult HPI - General Chief complaint: Chest Pain Stated complaint: Chest Pain Time Seen by Provider: 01/18/21 10:35 Source: patient, EMS, RN notes reviewed, old records reviewed Mode of arrival: EMS Limitations: no limitations - History of Present Illness Initial comments: This a 40-year-old male who presents emergency Department complaining of chest pain. Patient states it started about an hour and a half ago. Patient states he was severe pressure. Patient states he is also short of breath. Patient denies any radiation of the pain. Patient denied any diaphoretic episodes. Patient denied any nausea or vomiting. Patient states the pain is much better but still exists currently. Patient states 10 years ago had a cardiac catheterization it was fine. Patient denies any recent fever chills or cough. Patient states he did get cold in June but he has not had the vaccine. Patient denies headache patient denies numbness weakness. Patient denies any abdominal pain patient denies any diarrhea. Patient denies any recent injury or fall. - Related Data Home Medications Medication Instructions Recorded Confirmed Aspirin EC [Ecotrin] 325 mg PO HS 04/01/20 01/18/21 Atorvastatin [Lipitor] 40 mg PO HS 04/01/20 01/18/21 Cholecalciferol (Vitamin D3) 75 mcg PO HS 01/18/21 01/18/21 [Vitamin D3 (3000 Iu)] Allergies Allergy/AdvReac Type Severity Reaction Status Date / Time erythromycin base Allergy Anaphylaxis Verified 01/18/21 11:05 [Erythromycin Base] Penicillins Allergy Anaphylaxis Verified 01/18/21 11:05 sulfamethoxazole Allergy Anaphylaxis Verified 01/18/21 11:05 [From Septra] trimethoprim [From Decra] Allergy Anaphylaxis Verified 01/18/21 11:05 morphine AdvReac Hallucinati Verified 01/18/21 11:05 ons Review of Systems ROS Statement: Those systems with pertinent positive or pertinent negative responses have been documented in the HPI. ROS Other: All systems not noted in ROS Statement are negative. Past Medical History Past Medical History: Asthma, Hyperlipidemia, Hypertension Additional Past Medical History / Comment(s): back pain, meningitis as infant History of Any Multi-Drug Resistant Organisms: None Reported Past Surgical History: Heart Catheterization, Orthopedic Surgery Additional Past Surgical History / Comment(s): heart cath no stents, left thumb surgery, ESWL Past Anesthesia/Blood Transfusion Reactions: No Reported Reaction Past Psychological History: ADD/ADHD, Bipolar Smoking Status: Former smoker Past Alcohol Use History: Occasional Past Drug Use History: None Reported - Past Family History Mother Family Medical History: Hypertension General Exam - General Exam Comments Initial Comments: GENERAL: Patient is well-developed and well-nourished. Patient is nontoxic and well- hydrated and is in mild distress. ENT: Neck is soft and supple. No significant lymphadenopathy is noted. Oropharynx is clear. Moist mucous membranes. Neck has full range of motion without eliciting any pain. EYES: The sclera were anicteric and conjunctiva were pink and moist. Extraocular movements were intact and pupils were equal round and reactive to light. Eyelids were unremarkable. PULMONARY: Unlabored respirations. Good breath sounds bilaterally. No audible rales rhonchi or wheezing was noted. CARDIOVASCULAR: There is a regular rate and rhythm without any murmurs gallops or rubs. ABDOMEN: Soft and nontender with normal bowel sounds. SKIN: Skin is clear with no lesions or rashes and otherwise unremarkable. NEUROLOGIC: Patient is alert and oriented x3. Cranial nerves II through XII are grossly intact. Motor and sensory are also intact. Normal speech, volume and content. Symmetrical smile. MUSCULOSKELETAL: Normal extremities with adequate strength and full range of motion. No lower extremity swelling or edema. No calf tenderness. LYMPHATICS: No significant lymphadenopathy is noted PSYCHIATRIC: Normal psychiatric evaluation. Limitations: no limitations Course Vital Signs 01/18/21 01/18/21 01/18/21 10:31 11:24 11:35 Temperature 98.2 F Pulse Rate 69 57 L Respiratory 18 18 18 Rate Blood Pressure 139/79 124/87 O2 Sat by Pulse 97 97 Oximetry Medical Decision Making - Medical Decision Making EKG shows normal sinus rhythm at 64 bpm WI interval is 158 QRS is 76 QT interval 42 QTC is 414. Patient's EKG shows no ST segment elevation or depression. Chest x-ray shows no acute abnormality. Patient states when he got 2 nitroglycerin in the ambulance he felt considerably better. I spoke with Dr. Brown he agreed to admit the patient admitted the patient I wrote admitting orders. I consult to cardiology - Lab Data Result diagrams: 01/18/21 11:23 01/18/21 11:23 Lab Results 01/18/21 01/18/21 01/18/21 Range/Units 11:23 11:23 11:23 WBC 8.4 (3.8-10.6) k/uL RBC 5.40 (4.30-5.90) m/uL Hgb 15.8 (13.0-17.5) gm/dL Hct 47.5 (39.0-53.0) % MCV 87.9 (80.0-100.0) fL MCH 29.3 (25.0-35.0) pg MCHC 33.3 (31.0-37.0) g/dL RDW 12.7 (11.5-15.5) % Plt Count 255 (150-450) k/uL MPV 7.8 Neutrophils % 55 % Lymphocytes % 30 % Monocytes % 7 % Eosinophils % 5 % Basophils % 1 % Neutrophils # 4.6 (1.3-7.7) k/uL Lymphocytes # 2.5 (1.0-4.8) k/uL Monocytes # 0.6 (0-1.0) k/uL Eosinophils # 0.4 (0-0.7) k/uL Basophils # 0.1 (0-0.2) k/uL PT 9.4 (9.0-12.0) sec INR 0.9 (<1.2) APTT 26.2 (22.0-30.0) sec Sodium 136 L (137-145) mmol/L Potassium 4.8 (3.5-5.1) mmol/L Chloride 107 (98-107) mmol/L Carbon Dioxide 18 L (22-30) mmol/L Anion Gap 11 mmol/L BUN 13 (9-20) mg/dL Creatinine 0.74 (0.66-1.25) mg/dL Est GFR (CKD-EPI)AfAm >90 (>60 ml/min/1.73 sqM) Est GFR (CKD-EPI)NonAf >90 (>60 ml/min/1.73 sqM) Glucose 112 H (74-99) mg/dL Calcium 9.6 (8.4-10.2) mg/dL Magnesium 2.3 (1.6-2.3) mg/dL Total Bilirubin 1.0 (0.2-1.3) mg/dL AST 42 (17-59) U/L ALT 33 (4-49) U/L Alkaline Phosphatase 72 (38-126) U/L Troponin I (0.000-0.034) ng/mL Total Protein 7.6 (6.3-8.2) g/dL Albumin 4.5 (3.5-5.0) g/dL Coronavirus (PCR) (Not Detectd) 01/18/21 01/18/21 Range/Units 11:23 11:40 WBC (3.8-10.6) k/uL RBC (4.30-5.90) m/uL Hgb (13.0-17.5) gm/dL Hct (39.0-53.0) % MCV (80.0-100.0) fL MCH (25.0-35.0) pg MCHC (31.0-37.0) g/dL RDW (11.5-15.5) % Plt Count (150-450) k/uL MPV Neutrophils % % Lymphocytes % % Monocytes % % Eosinophils % % Basophils % % Neutrophils # (1.3-7.7) k/uL Lymphocytes # (1.0-4.8) k/uL Monocytes # (0-1.0) k/uL Eosinophils # (0-0.7) k/uL Basophils # (0-0.2) k/uL PT (9.0-12.0) sec INR (<1.2) APTT (22.0-30.0) sec Sodium (137-145) mmol/L Potassium (3.5-5.1) mmol/L Chloride (98-107) mmol/L Carbon Dioxide (22-30) mmol/L Anion Gap mmol/L BUN (9-20) mg/dL Creatinine (0.66-1.25) mg/dL Est GFR (CKD-EPI)AfAm (>60 ml/min/1.73 sqM) Est GFR (CKD-EPI)NonAf (>60 ml/min/1.73 sqM) Glucose (74-99) mg/dL Calcium (8.4-10.2) mg/dL Magnesium (1.6-2.3) mg/dL Total Bilirubin (0.2-1.3) mg/dL AST (17-59) U/L ALT (4-49) U/L Alkaline Phosphatase (38-126) U/L Troponin I <0.012 (0.000-0.034) ng/mL Total Protein (6.3-8.2) g/dL Albumin (3.5-5.0) g/dL Coronavirus (PCR) Not Detected (Not Detectd) Disposition Clinical Impression: Chest pain Disposition: ADMITTED IP TO THIS HOSP Referrals: [facility] [Primary Care Provider] - 1-2 days Time of Disposition: 12:38
[2021-01-18 11:41] LABS: Basophils # (A) 0.1 k/uL (0-0.2); Basophils % (A) 1 %; Eosinophils # (A) 0.4 k/uL (0-0.7); Eosinophils % (A) 5 %; HCT 47.5 % (39.0-53.0); HGB 15.8 gm/dL (13.0-17.5); Lymphocytes # (A) 2.5 k/uL (1.0-4.8); Lymphocytes % (A) 30 %; MCH 29.3 pg (25.0-35.0); MCHC 33.3 g/dL (31.0-37.0); MCV 87.9 fL (80.0-100.0); Mean Platelet Volume 7.8; Monocytes # (A) 0.6 k/uL (0-1.0); Monocytes % (A) 7 %; Neutrophils # (A) 4.6 k/uL (1.3-7.7); Neutrophils % (A) 55 %; Platelet Count 255 k/uL (150-450); RDW 12.7 % (11.5-15.5); WBC 8.4 k/uL (3.8-10.6)
[2021-01-18 11:49] LABS: INR 0.9 (<1.2); Partial Thromboplastin Time 26.2 sec (22.0-30.0); Prothrombin Time 9.4 sec (9.0-12.0)
[2021-01-18 11:52] LABS: ALT 33 U/L (4-49); African American GFR (CKD) >90 (>60 ml/min/1.73 sqM); Albumin 4.5 g/dL (3.5-5.0); Anion Gap 11 mmol/L; Blood Urea Nitrogen 13 mg/dL (9-20); Calcium 9.6 mg/dL (8.4-10.2); Carbon Dioxide 18 mmol/L (22-30); Chloride 107 mmol/L (98-107); Glucose 112 mg/dL (74-99); Non-African American GFR(CKD) >90 (>60 ml/min/1.73 sqM); Sodium 136 mmol/L (137-145); Total Protein 7.6 g/dL (6.3-8.2)
[2021-01-18 11:54] LABS: AST 42 U/L (17-59); Alkaline Phosphatase 72 U/L (38-126); Magnesium 2.3 mg/dL (1.6-2.3); Potassium 4.8 mmol/L (3.5-5.1)
[2021-01-18] MEDS ORDERED: NITROGLYCERIN SL TABS 0.4 MG TAB SUBLINGUAL PRN (12:38)
--- NOTE | 2021-01-18 12:39 | XR ---
EXAMINATION TYPE: XR chest 2V DATE OF EXAM: 01/18/2021 COMPARISON: Chest x-ray July 29, 2020. Chest CT July 09, 2020 HISTORY: Chest pain. TECHNIQUE: Frontal and lateral views of the chest are obtained. FINDINGS: Low lung volumes are redemonstrated. Overlying EKG leads are in current study. There is no suspicious new focal air space opacity, pleural effusion, or pneumothorax seen. The cardiac silhoue tte size is stable and within normal limits. The osseous structures are intact. IMPRESSION: No acute process. No significant change from prior studies.
[2021-01-18] MEDS: NITROGLYCERIN OINT 1 INCH/GM PACKET TOPICAL SCH (17:12)
[2021-01-18] MEDS ORDERED: ATORVASTATIN 40 MG TAB PO SCH (21:00)
--- NOTE | 2021-01-18 21:23 | P.HPIM ---
History of Present Illness H&P Date: 01/18/21 Chief Complaint: Chest pain and angina, hyperlipidemia, elevated blood pressure and hypergly HISTORY OF PRESENT ILLNESS 40-year-old mildly overweight male with past medical history of hyperlipidemia, mild asthma, recurrent chest pain, history of kidney stone, previous history of TIA and history of COVID-19 infection who presented to demurs department at [facility] today 01/18/2021 with complaining of midsternal chest pain lasted about one to one and half hour midsternal with severe associated with mild shortness of breath and mild palpitation with cold sweat did not radiate anywhere else patient had nausea without vomiting patient apparently known to have mild coronary artery disease last heart catheter was 10 years ago did not require any intervention. Has not seen cardiology since. Patient otherwise has been feeling well since recovering from COVID-19 has not had any major problem or complaint is still have reactive airway every so often with no major requirement for anything more than risk inhaler every so often. Also patient been treated for hyperlipidemia taking atorvastatin with good result so far. REVIEW OF SYSTEMS Constitutional: No fever, no chills, no night sweats. No weight change. No weakness, fatigue or lethargy. No daytime sleepiness. EENT: No headache. No blurred vision or double vision, no loss of vision. No loss of Hearing, no ringing in the ears, no dizziness. No nasal drainage or congestion. No epistaxis. No sore throat. Lungs: No shortness of breath, cough, no sputum production. No wheezing. Cardiovascular: Positive chest pain, no lower extremity edema. No palpitations. No paroxysmal nocturnal dyspnea. No orthopnea. No lightheadedness or dizziness. No syncopal episodes. Abdominal: No abdominal pain. No nausea, vomiting. No diarrhea. No constipat ion. No bloody or tarry stools.. No loss of appetite. Genitourinary: No dysuria, increased frequency, urgency. No urinary retention. Musculoskeletal: No myalgias. No muscle weakness, no gait dysfunction, no frequent falls. No back pain. No neck pain. Integumentary: No wounds, no lesions. No rash or pruritus. No unusual bruising. No change in hair or nails. Neurologic: No aphasia. No facial droop. No change in mentation. No head injury. No headache. No paralysis. No paresthesia. Psychiatric: No depression. No anxiety. No mood swings. Endocrine: No abnormal blood sugars. No weight change. No excessive sweating or thirst. No cold intolerance. SOCIAL HISTORY He does not smoke, drink psychosocially does not use any marijuana his and lives with his and work full-time job. FAMILY HISTORY Patient has 5 children with no major medical problem to sister one of them from CAD 111 with Kari thyroiditis, has a brother who has Kari thyroiditis as well. His mother is living or 69 had history of lung cancer, patient is doesn't know much about his father. PHYSICAL EXAMINATION Gen: This is might overweight 40-year-old gentleman does not look in any respiratory distress the time of examination does not have any chest pain or angina. HEENT: Head is atraumatic, normocephalic. Pupils equal, round. Sclerae is anicteric. NECK: Supple. No JVD. No lymphadenopathy. No thyromegaly. LUNGS: Clear to auscultation. No wheezes or rhonchi. No intercostal retractions. HEART: Regular rate and rhythm. No murmur. Positive mild PVCs ABDOMEN: Soft. Bowel sounds are present. No masses. No tenderness. EXTREMITIES: No pedal edema. No calf tenderness. NEUROLOGICAL: Patient is awake, alert and oriented x3. Cranial nerves 2 through 12 are grossly intact. ASSESSMENT AND PLAN 1 atypical chest pain: Patient has some risk factor including mild coronary artery disease from 10 years ago, history of hyperlipidemia, elevated blood pressure and sedentary lifestyle. Patient be hospitalized will be kept nothing by mouth to see cardiology in the morning CK with troponin 3 be done and echocardiogram was ordered as well. Debate whether to go for stress test or further intervention to be decided by cardiology. Ex 2 elevated blood pressure: Continue low-salt diet no need for any medication at this point if continued to have problem can benefit from smaller dose of beta brodie or calcium channel brodie. 3 hyperlipidemia: Resume atorvastatin as before. 4 previous history of TIA/CVA: With no residual left no explanation to it. Patient to remain on baby aspirin. 5 history of COVID-19 pneumonitis: Patient had recover nicely with no major complication. 6 GI prophylaxis: Patient be on Pepcid 20 mg a day. 7 DVT prophylaxis: Early mobilization no anticoagulation will be done for now. CODE STATUS: Full code COVID-19 testing by PCR was negative. Admit patient to the hospital for overnight stay. Past Medical History Past Medical History: Asthma, Hyperlipidemia, Hypertension Additional Past Medical History / Comment(s): back pain, meningitis as History of Any Multi-Drug Resistant Organisms: None Reported Past Surgical History: Heart Catheterization, Orthopedic Surgery Additional Past Surgical History / Comment(s): heart cath no stents, left thumb surgery, ESWL Past Anesthesia/Blood Transfusion Reactions: No Reported Reaction Past Psychological History: ADD/ADHD, Bipolar Smoking Status: Former smoker Past Alcohol Use History: Occasional Past Drug Use History: None Reported - Past Family History Mother Family Medical History: Hypertension Medications and Allergies Home Medications Medication Instructions Recorded Confirmed Type Aspirin EC [Ecotrin] 325 mg PO HS 04/01/20 01/18/21 History Atorvastatin [Lipitor] 40 mg PO HS 04/01/20 01/18/21 History Cholecalciferol (Vitamin D3) 75 mcg PO HS 01/18/21 01/18/21 History [Vitamin D3 (3000 Iu)] Allergies Allergy/AdvReac Type Severity Reaction Status Date / Time erythromycin base Allergy Anaphylaxis Verified 01/18/21 11:05 [Erythromycin Base] Penicillins Allergy Anaphylaxis Verified 01/18/21 11:05 sulfamethoxazole Allergy Anaphylaxis Verified 01/18/21 11:05 [From Septra] trimethoprim [From Decra] Allergy Anaphylaxis Verified 01/18/21 11:05 morphine AdvReac Hallucinati Verified 01/18/21 11:05 ons Physical Exam Vitals: Vital Signs Temp Pulse Resp BP Pulse Ox 01/18/21 13:31 53 L 18 114/82 99 01/18/21 12:53 57 L 18 113/85 97 01/18/21 11:35 18 01/18/21 11:24 57 L 18 124/87 97 01/18/21 10:31 98.2 F 69 18 139/79 97 Intake and Output 01/17/21 01/18/21 01/18/21 22:59 06:59 14:59 Other: Weight 127.006 kg Results CBC & Chem 7: 01/18/21 11:23 01/18/21 11:23 Labs: Abnormal Lab Results - Last 24 Hours (Table) 01/18/21 Range/Units 11:23 Sodium 136 L (137-145) mmol/L Carbon Dioxide 18 L (22-30) mmol/L Glucose 112 H (74-99) mg/dL Thrombosis Risk Factor Assmnt - Choose All That Apply Each Factor Represents 1 point: Age 41-60 years, Obesity (BMI >25) Thrombosis Risk Factor Assessment Total Risk Factor Score: 2 Thrombosis Risk Factor Assessment Level: Low Risk
[2021-01-18] MEDS: ACETAMINOPHEN TAB 325 MG TAB PO PRN (21:24)
[2021-01-19] MEDS: NITROGLYCERIN OINT 1 INCH/GM PACKET TOPICAL SCH ×2 (00:03→06:38)
[2021-01-19 07:09] VITALS: RESP 18
[2021-01-19] MEDS ORDERED: DOBUTamine DRIP for NUC MED 500 MG in DEXTROSE/WATER 1 250ML.BAG IV PRN (08:30)
[2021-01-19] MEDS ORDERED: ASPIRIN 81 MG PO SCH (09:00)
[2021-01-19] MEDS ORDERED: ASPIRIN 325 MG TAB PO SCH (09:00)
[2021-01-19] MEDS ORDERED: FAMOTIDINE 20 MG TAB PO SCH (09:00)
--- NOTE | 2021-01-19 09:41 | P.CRDCN ---
History of Present Illness History of present illness: This is a pleasant 39-year-old male past medical history significant for hyperlipidemia and possible CVA in 12/2019, Covid-16 July 2020. He used to follow with a manager services, Dr. Bob but has not seen him in over 5 years. We have been asked to see in consultation for chest pain. Patient presents to the emergency department with worsening chest pressure. 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 Non- radiating, non-exertional. He describes as an elephant sitting on his chest. He denies any associated shortness of breath, nausea, vomiting, palpitations, lightheadedness, dizziness. He did have associated diaphoresis felt as if he had to put a fan in front of him. Patient states he had a cardiac catheterization about 10-11 years ago at [facility] with Dr. Bob and was told it was normal. He is a former smoker, quit 13 years ago. He is also a former illicit drug user (states "I used to use every drug under the sun") quit 13+ years ago. Denies history of Hypertension, KS, or Diabetes. Family history includes grandfather had an KS unsure what age. DIAGNOSTICS Most recent echocardiogram 12/2019left ventricular systolic function is normal with EF between 5560 percent, trace MR, trace TR Dobutamine stress Echo test 2017- negative for stress-induced ischemia, Occasional PVCs and one episode of NSVT was noted due to dobutamine EKG reveals normal sinus rhythm with T wave Inversion in lead III, no si gnificant St-T wave abnormalities. Similar to prior EKG Telemetry tracings indicate sinus rhythm heart rate trends 5370s. Chest xray no acute cardiopulmonary process. Laboratory data reviewed troponin negative x 3, Sodium 136, K 4.8, BUN 13, SCr 0.74, Mag 2.3, Covid-19 PCR negative, cbc unremarkable. Current home cardiac medications include atorvastatin 40mg nightly, aspirin 325mg nightly. REVIEW OF SYSTEMS At the time of my exam: CONSTITUTIONAL: Denies fever or chills. +diaphoresis. CARDIOVASCULAR: +chest pain, Denies shortness of breath, Denies orthopnea, PND or palpitations. RESPIRATORY: Denies cough. GASTROINTESTINAL: Denies abdominal pain, diarrhea, constipation, nausea or vomiting. MUSCULOSKELETAL: Denies myalgias. NEUROLOGIC: Denies numbness, tingling, headacbe or weakness. ENDOCRINE: Denies fatigue, weight change, polydipsia or polyurina. GENITOURINARY: Denies burning, hematuria or urgency with micturation. HEMATOLOGIC: Denies history of anemia or bleeding. PHYSICAL EXAMINATION Blood pressure 100/57, heart rate 54, afebrile, maintaining oxygen saturations on room air. CONSTITUTIONAL: No apparent distress. HEENT: Head is normocephalic. Pupils are equal, round. Sclerae anicteric. Mucous membranes of the mouth are moist. No JVD. No carotid bruit. CHEST EXAMINATION: Lungs are clear to auscultation. No chest wall tenderness is noted on palpation or with deep breathing. HEART EXAMINATION: Regular rate and rhythm. S1, S2 heard. No murmurs, gallops or rub. ABDOMEN: Soft, nontender. Positive bowel sounds. EXTREMITIES: 2+ peripheral pulses, no lower extremity edema and no calf tenderness. NEUROLOGIC EXAMINATION: Patient is awake, alert and oriented x3. ASSESSMENT Chest pain, atypical acute coronary event has been ruled out COVID-19 infection in June 2020 History of CVA Hyperlipidemia PLAN An acute coronary event has been ruled out with no EKG evidence of ischemia and negative cardiac enzymes. Obtain 2D echocardiogram and doppler study to assess cardiac structure and function. Perform dobutamine stress test to assess for stress induced cardiac ischemia. If abnormal will consider coronary angiography. Continue aspirin and statin Lipid Panel Pending If stress test is normal and no acute findings on echocardiogram, ok to discharge from cardiology perspective. Discussed with patient if he would not like to follow up with Dr. Bob he can follow up at [facility] with Dr. Banerjee. Thank you kindly for this consultation. Nurse Practitioner note has been reviewed, I agree with a documented findings and plan of care. Patient was seen and examined. Past Medical History Past Medical History: Asthma, Hyperlipidemia, Hypertension Additional Past Medical History / Comment(s): back pain, meningitis as History of Any Multi-Drug Resistant Organisms: None Reported Past Surgical History: Heart Catheterization, Orthopedic Surgery Additional Past Surgical History / Comment(s): heart cath no stents, left thumb surgery, ESWL Past Anesthesia/Blood Transfusion Reactions: No Reported Reaction Past Psychological History: ADD/ADHD, Bipolar Smoking Status: Former smoker Past Alcohol Use History: Occasional Past Drug Use History: None Reported - Past Family History Mother Family Medical History: Hypertension Medications and Allergies Home Medications Medication Instructions Recorded Confirmed Type Aspirin EC [Ecotrin] 325 mg PO HS 04/01/20 01/18/21 History Atorvastatin [Lipitor] 40 mg PO HS 04/01/20 01/18/21 History Cholecalciferol (Vitamin D3) 75 mcg PO HS 01/18/21 01/18/21 History [Vitamin D3 (3000 Iu)] Allergies Allergy/AdvReac Type Severity Reaction Status Date / Time erythromycin base Allergy Anaphylaxis Verified 01/18/21 11:05 [Erythromycin Base] Penicillins Allergy Anaphylaxis Verified 01/18/21 11:05 sulfamethoxazole Allergy Anaphylaxis Verified 01/18/21 11:05 [From ] trimethoprim [From ] Allergy Anaphylaxis Verified 01/18/21 11:05 morphine AdvReac Hallucinati Verified 01/18/21 11:05 ons Physical Exam Vitals: Vital Signs Temp Pulse Resp BP Pulse Ox 01/18/21 13:31 53 L 18 114/82 99 01/18/21 12:53 57 L 18 113/85 97 01/18/21 11:35 18 01/18/21 11:24 57 L 18 124/87 97 01/18/21 10:31 98.2 F 69 18 139/79 97 Intake and Output 01/17/21 01/18/21 01/18/21 22:59 06:59 14:59 Other: Weight 127.006 kg Results 01/18/21 11:23 01/18/21 11:23 Cardiac Enzymes 01/18/21 01/18/21 Range/Units 11:23 11:23 AST 42 (17-59) U/L Troponin I <0.012 (0.000-0.034) ng/mL Coagulation 01/18/21 Range/Units 11:23 PT 9.4 (9.0-12.0) sec APTT 26.2 (22.0-30.0) sec CBC 01/18/21 Range/Units 11:23 WBC 8.4 (3.8-10.6) k/uL RBC 5.40 (4.30-5.90) m/uL Hgb 15.8 (13.0-17.5) gm/dL Hct 47.5 (39.0-53.0) % Plt Count 255 (150-450) k/uL Comprehensive Metabolic Panel 01/18/21 Range/Units 11:23 Sodium 136 L (137-145) mmol/L Potassium 4.8 (3.5-5.1) mmol/L Chloride 107 (98-107) mmol/L Carbon Dioxide 18 L (22-30) mmol/L BUN 13 (9-20) mg/dL Creatinine 0.74 (0.66-1.25) mg/dL Glucose 112 H (74-99) mg/dL Calcium 9.6 (8.4-10.2) mg/dL AST 42 (17-59) U/L ALT 33 (4-49) U/L Alkaline Phosphatase 72 (38-126) U/L Total Protein 7.6 (6.3-8.2) g/dL Albumin 4.5 (3.5-5.0) g/dL Current Medications Generic Name Dose Route Start Last Admin Trade Name Freq PRN Reason Stop Dose Admin Aspirin 325 mg 01/19/21 09:00 Aspirin 325 Mg Tab PO DAILY IRINA Nitroglycerin 0.4 mg 01/18/21 12:38 Nitroglycerin Sl Tabs 0.4 Mg Tab SUBLINGUAL Q5M PRN Chest Pain Nitroglycerin 1 inch 01/18/21 18:00 Nitroglycerin Oint 1 Inch/Gm Packet TOPICAL Q6HR IRINA Intake and Output 01/17/21 01/18/21 01/18/21 22:59 06:59 14:59 Other: Weight 127.006 kg Patient Weight 01/19/21 06:59 Weight 127.006 kg 01/18/21 11:23 01/18/21 11:23
--- NOTE | 2021-01-19 10:14 | P.DS ---
Providers Date of admission: 01/18/21 12:38 Expected date of discharge: 01/19/21 Attending physician: William Brown Consults: 01/18/21 12:38 Consult Physician Urgent Consulting Provider: [facility] Consult Reason/Comments: Chest pain Do you want consulting provider notified?: Yes Primary care physician: [facility] Course: HISTORY OF PRESENT ILLNESS 40-year-old mildly overweight male with past medical history of hyperlipidemia, mild asthma, recurrent chest pain, history of kidney stone, previous history of TIA and history of COVID-19 infection who presented to demurs department at [facility] today 01/18/2021 with complaining of midsternal chest pain lasted about one to one and half hour midsternal with severe associated with mild shortness of breath and mild palpitation with cold sweat did not radiate anywhere else patient had nausea without vomiting patient apparently known to have mild coronary artery disease last heart catheter was 10 years ago did not require any intervention. Has not seen cardiology since. Patient otherwise has been feeling well since recovering from COVID-19 has not h ad any major problem or complaint is still have reactive airway every so often with no major requirement for anything more than risk inhaler every so often. Also patient been treated for hyperlipidemia taking atorvastatin with good result so far. 01/19: Echocardiogram reveals EF of 55-60% with mild mitral regurgitation, mild tricuspid regurgitation. Patient denies having any chest pain or shortness of breath. Patient was seen by cardiology and underwent dobutamine stress test that came back negative and patient was cleared for discharge home. Blood pressure is stable at 111/66. Patient will be discharged home today in stable condition. DISCHARGE DIAGNOSES 1 atypical chest pain 2 elevated blood pressure 3 hyperlipidemia 4 previous history of TIA/CVA: With no residual 5 history of COVID-19 pneumonitis DISCHARGE PLAN Home Impression and plan of care have been directed as dictated by the signing physician. Amanda Zamudio nurse practitioner acting as scribe for signing physician. Patient Condition at Discharge: Good Plan - Discharge Summary Discharge Rx Participant: No New Discharge Prescriptions: Continue Aspirin EC [Ecotrin] 325 mg PO HS Atorvastatin [Lipitor] 40 mg PO HS Cholecalciferol (Vitamin D3) [Vitamin D3 (3000 Iu)] 75 mcg PO HS Discharge Medication List Aspirin EC [Ecotrin] 325 mg PO HS 04/01/20 [History] Atorvastatin [Lipitor] 40 mg PO HS 04/01/20 [History] Cholecalciferol (Vitamin D3) [Vitamin D3 (3000 Iu)] 75 mcg PO HS 01/18/21 [History] Follow up Appointment(s)/Referral(s): Ewelina Banerjee MD [STAFF PHYSICIAN] - 2 Weeks (will call patient to schedule ) [facility] [Primary Care Provider] - 1 Week Patient Instructions/Handouts: Chest Pain (DC) Discharge Disposition: HOME SELF-CARE
[2021-01-19 10:51] LABS: Chol/HDL Ratio 3.97; LDL Cholesterol,Calculated 81.4 mg/dL (0.0-131.0); VLDL Calculation 22.6 mg/dL (5.00-40.00)
[2021-01-19] MEDS: ACETAMINOPHEN TAB 325 MG TAB PO PRN (12:31)
[2021-01-19 13:24] VITALS: BP 111/66; PULSE 75; TEMP 97.4
--- NOTE | 2021-01-19 15:32 | ECHOS ---
STRESS ECHOCARDIOGRAM INDICATIONS: Chest pain BASELINE HEART RATE: 55 BASELINE BLOOD PRESSURE: 102/75 MAXIMUM HEART RATE: 165 MAXIMUM BLOOD PRESSURE: 179/66 85% MPHR: 152 100% MPHR: 179 METS: NA MAXIMUM STAGE REACHED: 2 TOTAL EXERCISE TIME: 7:45 CLINICAL INFORMATION: Baseline rhythm is a sinus mechanism, rate of 55, normal axis, intervals, normal echocardiogram. Baseline blood pressure 102/75 mmHg. Patient received an infusion of dobutamine, reaching a peak rate of 175 beats per minute, which is equal to 92% of maximum predicted heart rate. Peak blood pressure 147/70 mmHg. Electrocardiographic monitoring revealed no evidence of diagnostic ischemic ST deviation. Rare PVCs were noted. FINDINGS: Baseline echocardiogram revealed normal wall thickening and motion at peak infusion. There was normal wall motion augmentation with no hypokinesis or dyskinesis. CONCLUSION: 1. Normal electrocardiographic response to dobutamine infusion. 2. Normal stress echocardiogram with no evidence of stress-induced ischemia. MMODL / IJN: [id number] /
[2021-01-19] MEDS ORDERED: CHOLECALCIFEROL 25 MCG (1000 IU) TABLET PO SCH (21:00)
--- NOTE | 2021-01-20 12:00 | ECHOF ---
Referral Reason: MEASUREMENTS -------- HEIGHT: 180.3 cm WEIGHT: 127.0 kg BP: RVIDd: 2.9 cm (< 3.3) IVSd: 1.0 cm (0.6 - 1.1) LVIDd: 4.7 cm (3.9 - 5.3) LVPWd: 1.1 cm (0.6 - 1.1) IVSs: 1.9 cm LVIDs: 1.7 cm LVPWs: 1.7 cm LAESV Index (A-L): 18.23 ml/m Ao Diam: 3.2 cm (2.0 - 3.7) AV Cusp: 2.2 cm (1.5 - 2.6) LA Diam: 3.4 cm (2.7 - 3.8) MV EXCURSION: 12.148 mm (> 18.000) MV EF SLOPE: 102 mm/s (70 - 150) EPSS: 0.6 cm MV E Maynor: 0.96 m/s MV DecT: 211 ms MV A Maynor: 0.59 m/s MV E/A Ratio: 1.62 RAP: 5.00 mmHg RVSP: 27.23 mmHg FINDINGS -------- Sinus rhythm. This was a technically good study. The left ventricular size is normal. Left ventricular wall thickness is normal. Overall left vent ricular systolic function is normal with, an EF between 55 - 60 %. The diastolic filling pattern is normal for the age of the patient 10.58. The right ventricle is normal in size. Normal LA size by volume 22+/-6 ml/m2. The right atrial size is normal. The aortic valve is trileaflet, and appears structurally normal. No aortic stenosis or regurgitation. The mitral valve is normal. Mild mitral regurgitation is present. The tricuspid valve appears structurally normal. Mild tricuspid regurgitation present. Right vent ricular systolic pressure is normal at < 35 mmHg. Trace/mild (physiologic) pulmonic regurgitation. The aortic root size is normal. IVC Not well visulized. There is no pericardial effusion. CONCLUSIONS -------- 1. Left ventricular wall thickness is normal. 2. Overall left ventricular systolic function is normal with, an EF between 55 - 60 %. 3. Normal LA size by volume 22+/-6 ml/m2. 4. The aortic valve is trileaflet, and appears structurally normal. No aortic stenosis or regurgitati on. 5. Mild mitral regurgitation is present. 6. Mild tricuspid regurgitation present. 7. There is no pericardial effusion. NEUROSURGERY PHYSICIAN: Hansa Adkins RDCS
== END 2021-01-19 14:18 | disposition home or self-care (01) ==
LOC: EC 10:29 → 6NMEDSUR 12:38
PROVIDERS: ADMIT Internal Medicine Geriatric Medicine; ATTEND Internal Medicine Geriatric Medicine
DX: R07.89 Other chest pain (principal); R03.0 Elevated blood-pressure reading, without diagnosis of hypertension; E78.5 Hyperlipidemia, unspecified; Z86.73 Personal history of transient ischemic attack (TIA), and cerebral infarction without residual deficits; Z20.822 Contact with and (suspected) exposure to COVID-19; Z87.01 Personal history of pneumonia (recurrent); R06.02 Shortness of breath; R00.2 Palpitations; R11.0 Nausea; R61 Generalized hyperhidrosis; M54.9 Dorsalgia, unspecified; I25.10 Atherosclerotic heart disease of native coronary artery without angina pectoris; I08.1 Rheumatic disorders of both mitral and tricuspid valves; F90.9 Attention-deficit hyperactivity disorder, unspecified type; F31.9 Bipolar disorder, unspecified; J45.909 Unspecified asthma, uncomplicated; E66.9 Obesity, unspecified; Z68.38 Body mass index [BMI] 38.0-38.9, adult; Z87.891 Personal history of nicotine dependence; Z87.442 Personal history of urinary calculi; Z86.16 Personal history of COVID-19; Z86.61 Personal history of infections of the central nervous system; Z79.82 Long term (current) use of aspirin; Z79.899 Other long term (current) drug therapy; Z88.1 Allergy status to other antibiotic agents; Z88.5 Allergy status to narcotic agent; Z88.0 Allergy status to penicillin; Z88.2 Allergy status to sulfonamides; Z83.49 Family history of other endocrine, nutritional and metabolic diseases; Z82.49 Family history of ischemic heart disease and other diseases of the circulatory system; Z80.1 Family history of malignant neoplasm of trachea, bronchus and lung
CPT/HCPCS: 99285; 36415; 94760; 93005; 93306; 93351; 80061; 80053; 83735; 84484; 85025; 85610; 85730; 87635; 71046; G0378 ×2

== ENCOUNTER → 2021-07-31 | Outpatient (CLI) | payer SELFPAY ==
--- NOTE | 2021-07-31 19:52 | XR ---
EXAMINATION TYPE: XR shoulder complete LT DATE OF EXAM: 07/31/2021 7:42 PM INDICATION: Patient age:Male; 41 years old; Reason for study: S46.912A; pain COMPARISON: None TECHNIQUE: The left shoulder was examined in AP, internally rotated and axillary projections. FINDINGS: No evidence of acute osseous pathology, joint dislocation, or soft tissue swelling. The remaining por tions of the visualized chest are unremarkable. IMPRESSION: No acute osseous pathology.
== END | disposition home or self-care (01) ==
LOC: RADXRMAIN 19:18
PROVIDERS: ATTEND Emergency Medicine
DX: S46.912A Strain of unspecified muscle, fascia and tendon at shoulder and upper arm level, left arm, initial encounter (principal); Y99.9 Unspecified external cause status

== ENCOUNTER 2021-08-11 20:25 | Emergency (ER) | payer OTHER ==
[2021-08-11 20:40] VITALS: BP 167/98; PULSE 86; RESP 18; TEMP 98
[2021-08-11 22:03] LABS: Basophils # (A) 0.1 k/uL (0-0.2); Basophils % (A) 1 %; Eosinophils # (A) 0.6 k/uL (0-0.7); Eosinophils % (A) 6 %; HCT 46.4 % (39.0-53.0); Lymphocytes # (A) 2.8 k/uL (1.0-4.8); Lymphocytes % (A) 30 %; MCH 28.5 pg (25.0-35.0); MCHC 32.2 g/dL (31.0-37.0); MCV 88.4 fL (80.0-100.0); Mean Platelet Volume 7.3; Monocytes # (A) 0.7 k/uL (0-1.0); Monocytes % (A) 7 %; Neutrophils % (A) 53 %; Platelet Count 248 k/uL (150-450); RBC 5.25 m/uL (4.30-5.90); RDW 13.1 % (11.5-15.5); WBC 9.4 k/uL (3.8-10.6)
[2021-08-11 22:04] LABS: Appearance,Urine Clear (Clear); Bilirubin,Urine Negative (Negative); Blood,Urine Negative (Negative); Color,Urine Yellow; Glucose,Urine (UA) Negative (Negative); Ketones,Urine Negative (Negative); Leukocyte Esterase,Urine Negative (Negative); Nitrite,Urine Negative (Negative); Protein,Urine Negative (Negative); Urobilinogen,Urine <2.0 mg/dL (<2.0)
[2021-08-11 22:23] LABS: ALT 25 U/L (4-49); AST 29 U/L (17-59); African American GFR (CKD) >90 (>60 ml/min/1.73 sqM); Albumin 4.1 g/dL (3.5-5.0); Alkaline Phosphatase 55 U/L (38-126); Amylase 58 U/L (30-110); Anion Gap 5 mmol/L; Blood Urea Nitrogen 17 mg/dL (9-20); Calcium 9.4 mg/dL (8.4-10.2); Carbon Dioxide 28 mmol/L (22-30); Chloride 105 mmol/L (98-107); Glucose 118 mg/dL (74-99); Lipase 64 U/L (23-300); Non-African American GFR(CKD) >90 (>60 ml/min/1.73 sqM); Potassium 4.4 mmol/L (3.5-5.1); Sodium 138 mmol/L (137-145); Total Bilirubin 0.9 mg/dL (0.2-1.3); Total Protein 7.2 g/dL (6.3-8.2)
[2021-08-11] MEDS ORDERED: KETOROLAC 15 MG/ML 1 ML VIAL IVP STA (22:23)
[2021-08-11] MEDS ORDERED: Acetaminophen-Codeine 300-30mg TAB PO STA (23:30)
--- NOTE | 2021-08-12 00:09 | CT ---
EXAMINATION TYPE: CT abdomen pelvis wo con DATE OF EXAM: 08/11/2021 COMPARISON: 05/09/2021 HISTORY: left flank pain CT DLP: 1344.4 mGycm Automated exposure control for dose reduction was used. Images obtained from the diaphragm to the floor the pelvis with no contrast. Lung bases are clear. There is no pleural effusion. Heart size is normal. There is no pericardial eff usion. Liver spleen and stomach pancreas appear normal. The bile ducts are not dilated. There is no adrenal mass. Kidneys have normal size and contour. There is no hydronephrosis. There is 2 mm calculus upper pole right kidney. The ureters are not dilated. There is no retroperitoneal adeno meghna. Appendix is posterior and appears normal. The bladder distends smoothly. There is no inguinal hernia. There is minimal prostate calcification. No free fluid in the pelvis. There is no mesenteric edema. No ascites or free air. No sign of a bowel obstruction. The lumbar vert ebra have normal spacing and alignment. Posterior elements are intact. No compression fracture. Bony pelvis is intact. The hip joints are intact. IMPRESSION: Nonobstructing calculus right kidney. No acute abnormality in the abdomen and pelvis. No adverse mcclendon ge compared to old exam.
--- NOTE | 2021-08-12 00:28 | ED ---
General Adult HPI - General Chief complaint: Urogenital Stated complaint: kidney stones Time Seen by Provider: 08/11/21 21:21 Source: patient Mode of arrival: ambulatory - History of Present Illness Initial comments: This patient is 41-year-old man who presents to have evaluation for what he suspects his kidney stone. The patient is complaining of left low back pain. It had been worsened because he was sitting on hard wooden chair for jury duty. He states the pain is similar to previous kidney stone pain. No fever or chills. No change in urine noted. Onset/Timin -: days(s) Location: back Radiation: non-radiation Quality: sharp Consistency: constant Improves with: none Worsens with: other (Sitting) Associated Symptoms: denies other symptoms Treatments Prior to Arrival: none - Related Data Home Medications Medication Instructions Recorded Confirmed Aspirin EC [Ecotrin] 325 mg PO HS 04/01/20 08/11/21 Atorvastatin [Lipitor] 40 mg PO HS 04/01/20 08/11/21 Allergies Allergy/AdvReac Type Severity Reaction Status Date / Time erythromycin base Allergy Anaphylaxis Verified 08/11/21 23:50 [Erythromycin Base] Penicillins Allergy Anaphylaxis Verified 08/11/21 23:50 sulfamethoxazole Allergy Anaphylaxis Verified 08/11/21 23:50 [From Septra] trimethoprim [From Septra] Allergy Anaphylaxis Verified 08/11/21 23:50 morphine AdvReac Hallucinati Verified 08/11/21 23:50 ons Review of Systems ROS Statement: Those systems with pertinent positive or pertinent negative responses have been documented in the HPI. ROS Other: All systems not noted in ROS Statement are negative. Constitutional: Denies: fever, chills, weakness Respiratory: Denies: cough, dyspnea Cardiovascular: Denies: chest pain, palpitations, edema Gastrointestinal: Denies: abdominal pain, nausea, vomiting, diarrhea, constipation Genitourinary: Denies: dysuria, frequency, hematuria, testicular pain, testicular mass Musculoskeletal: Reports: back pain Skin: Denies: rash Neurological: Denies: headache, weakness, numbness, paresthesias Past Medical History Past Medical History: Asthma, Hyperlipidemia, Hypertension Additional Past Medical History / Comment(s): back pain, meningitis as infant History of Any Multi-Drug Resistant Organisms: None Reported Past Surgical History: Heart Catheterization, Orthopedic Surgery Additional Past Surgical History / Comment(s): heart cath no stents, left thumb surgery, ESWL Past Anesthesia/Blood Transfusion Reactions: No Reported Reaction Past Psychological History: ADD/ADHD, Bipolar Smoking Status: Former smoker Past Alcohol Use History: Occasional Past Drug Use History: None Reported - Past Family History Mother Family Medical History: Hypertension General Exam General appearance: alert, in no apparent distress Head exam: Present: atraumatic, normocephalic Eye exam: Present: normal appearance. Absent: scleral icterus, conjunctival injection Neck exam: Present: normal inspection Respiratory exam: Present: normal lung sounds bilaterally. Absent: respiratory distress, wheezes, rales, rhonchi, stridor Cardiovascular Exam: Present: regular rate, normal rhythm, normal heart sounds. Absent: systolic murmur, diastolic murmur, rubs, gallop GI/Abdominal exam: Present: soft. Absent: distended, tenderness, guarding, shamika ound, rigid, mass Extremities exam: Present: normal inspection, normal capillary refill. Absent: pedal edema, calf tenderness Back exam: Present: normal inspection, CVA tenderness (L), paraspinal tenderness. Absent: CVA tenderness (R), vertebral tenderness, rash noted Neurological exam: Present: alert Skin exam: Present: warm, dry, intact, normal color. Absent: rash Course Vital Signs 08/11/21 20:37 Temperature 98 F Pulse Rate 86 Respiratory 18 Rate Blood Pressure 167/98 O2 Sat by Pulse 96 Oximetry Medical Decision Making - Lab Data Result diagrams: 08/11/21 21:48 08/11/21 21:48 Lab Results 08/11/21 08/11/21 08/11/21 Range/Units 21:48 21:48 21:48 WBC 9.4 (3.8-10.6) k/uL RBC 5.25 (4.30-5.90) m/uL Hgb 15.0 (13.0-17.5) gm/dL Hct 46.4 (39.0-53.0) % MCV 88.4 (80.0-100.0) fL MCH 28.5 (25.0-35.0) pg MCHC 32.2 (31.0-37.0) g/dL RDW 13.1 (11.5-15.5) % Plt Count 248 (150-450) k/uL MPV 7.3 Neutrophils % 53 % Lymphocytes % 30 % Monocytes % 7 % Eosinophils % 6 % Basophils % 1 % Neutrophils # 5.0 (1.3-7.7) k/uL Lymphocytes # 2.8 (1.0-4.8) k/uL Monocytes # 0.7 (0-1.0) k/uL Eosinophils # 0.6 (0-0.7) k/uL Basophils # 0.1 (0-0.2) k/uL Sodium 138 (137-145) mmol/L Potassium 4.4 (3.5-5.1) mmol/L Chloride 105 (98-107) mmol/L Carbon Dioxide 28 (22-30) mmol/L Anion Gap 5 mmol/L BUN 17 (9-20) mg/dL Creatinine 0.86 (0.66-1.25) mg/dL Est GFR (CKD-EPI)AfAm >90 (>60 ml/min/1.73 sqM) Est GFR (CKD-EPI)NonAf >90 (>60 ml/min/1.73 sqM) Glucose 118 H (74-99) mg/dL Calcium 9.4 (8.4-10.2) mg/dL Total Bilirubin 0.9 (0.2-1.3) mg/dL AST 29 (17-59) U/L ALT 25 (4-49) U/L Alkaline Phosphatase 55 (38-126) U/L Total Protein 7.2 (6.3-8.2) g/dL Albumin 4.1 (3.5-5.0) g/dL Amylase 58 (30-110) U/L Lipase 64 (23-300) U/L Urine Color Yellow Urine Appearance Clear (Clear) Urine pH 7.0 (5.0-8.0) Ur Specific [place] 1.020 (1.001-1.035) Urine Protein Negative (Negative) Urine Glucose (UA) Negative (Negative) Urine Ketones Negative (Negative) Urine Blood Negative (Negative) Urine Nitrite Negative (Negative) Urine Bilirubin Negative (Negative) Urine Urobilinogen <2.0 (<2.0) mg/dL Ur Leukocyte Esterase Negative (Negative) Disposition Clinical Impression: Flank pain Disposition: HOME SELF-CARE Condition: Good Instructions (If sedation given, give patient instructions): Flank Pain (ED) Is patient prescribed a controlled substance at d/c from ED?: No Referrals: [facility] [Primary Care Provider] - 1-2 days
== END 2021-08-12 00:51 | disposition home or self-care (01) ==
LOC: EC 20:25
DX: R10.9 Unspecified abdominal pain (principal); M54.50 Low back pain, unspecified; J45.909 Unspecified asthma, uncomplicated; E78.5 Hyperlipidemia, unspecified; I10 Essential (primary) hypertension; Z87.891 Personal history of nicotine dependence; Z88.1 Allergy status to other antibiotic agents; Z88.0 Allergy status to penicillin; Z88.2 Allergy status to sulfonamides; Z88.5 Allergy status to narcotic agent; Z79.899 Other long term (current) drug therapy
CPT/HCPCS: 36415; 80053; 82150; 83690; 85025; 81003; 74176; 99284; 96374; J1885

== ENCOUNTER → 2021-09-21 | Outpatient (CLI) | payer OTHER ==
[2021-09-21 18:32] LABS: Anion Gap 10.3 mmol/L (10.00-18.00); Carbon Dioxide 20.7 mmol/L (20.0-27.5); Potassium 4.9 mmol/L (3.5-5.5)
[2021-09-21 18:36] LABS: Basophils # (A) 0.12 X 10*3/uL (0.00-0.10); Basophils % (A) 1.4 %; Eosinophils # (A) 0.48 X 10*3/uL (0.04-0.35); Eosinophils % (A) 5.6 %; HCT 47.3 % (39.6-50.0); HGB 16.4 g/dL (13.0-17.0); Immature Grans, Automated 0.2 %; Lymphocytes # (A) 2.62 X 10*3/uL (0.90-5.00); Lymphocytes % (A) 30.4 %; MCH 29.4 pg (27.0-32.0); MCHC 34.7 g/dL (32.0-37.0); MCV 84.8 fL (80.0-97.0); Mean Platelet Volume 10.6 fL (9.5-12.2); Monocytes # (A) 0.79 X 10*3/uL (0.20-1.00); Monocytes % (A) 9.2 %; NRBC Per 100 WBC 0 /100 WBCS (0.0-0.0); Neutrophils # (A) 4.58 X 10*3/uL (1.80-7.70); Neutrophils % (A) 53.2 %; Platelet Count 259 X 10*3/uL (140-440); RBC 5.58 X 10*6/uL (4.40-5.60); RDW 12.9 % (11.5-14.5); WBC 8.61 X 10*3/uL (4.50-10.00)
== END | disposition home or self-care (01) ==
LOC: LABPAT 13:31
PROVIDERS: ATTEND Orthopaedic Surgery
DX: Z01.812 Encounter for preprocedural laboratory examination (principal); M75.42 Impingement syndrome of left shoulder
CPT/HCPCS: 80051; 85025

== ENCOUNTER 2021-09-29 09:03 | Day surgery (SDC) | payer OTHER ==
[2021-09-28 08:31] VITALS: BMI 32.5
--- NOTE | 2021-09-28 14:35 | HP ---
HISTORY AND PHYSICAL REASON FOR ADMISSION: Surgery 09/29/2021 Vickey Paredes is a 41-year-old patient seen with progressive left shoulder pain. Options for treatment were discussed with him. He elected to proceed with left shoulder arthroscopy. Consent is obtained. PAST MEDICAL HISTORY: Asthma. PAST SURGICAL HISTORY: Thumb surgery. MEDICATIONS: Losartan. ALLERGIES: None. SOCIAL HISTORY: He denies current tobacco use. PHYSICAL EXAMINATION: Evaluation of left shoulder: Flexion 70 degrees, abduction is 50 degrees. External rotation is 30 degrees with pain and weakness. Tenderness along the anterior lateral acromion and rotator cuff insertion. Impingement positive at 60. Drop-arm sign is positive. Distal neurovascular exam is intact. RADIOGRAPHS: Radiographs of the left shoulder revealed a type 2 acromion. MRI of his left shoulder revealed a rotator cuff tendon tear. IMPRESSION: Left shoulder impingement with rotator cuff tear. PLAN: Left shoulder arthroscopy with subacromial decompression, arthroscopic rotator cuff repair and debridement. Surgery 09/29/2021. MMODL / IJN: [id number] /
[~2021-09-29 09:03] MED LIST: DEXAMETHASONE SOD PHOSPHATE 4 MG/ML 1 ML VIAL IV ONE; LACTATED RINGERS 1,000 ML IV SCH; ONDANSETRON 4 MG/2 ML VIAL IVP ONE; fentaNYL (PF) 50 MCG/ML 2 ML AMP IV PRN
[2021-09-29 09:52] VITALS: RESP 16
[2021-09-29] MEDS ORDERED: LIDOCAINE 1% (10MG/ML) FOR IV START INTRADERMA ONE (10:05)
[2021-09-29] MEDS ORDERED: MIDAZOLAM 2 MG/2 ML VIAL IV ONE (10:30)
[2021-09-29] MEDS ORDERED: DEXAMETHASONE SOD PHOSPHATE 4 MG/ML 1 ML VIAL ONE (11:04)
[2021-09-29] MEDS ORDERED: fentaNYL (PF) 50 MCG/ML 2 ML AMP ONE (11:04)
[2021-09-29] MEDS ORDERED: ROPIVACAINE 5 MG/ML 30 ML VIAL ONE (11:04)
[2021-09-29] MEDS ORDERED: PROPOFOL 10 MG/ML 20 ML VIAL IV ONE (11:04)
[2021-09-29] MEDS ORDERED: MIDAZOLAM 2 MG/2 ML VIAL ONE (11:04)
[2021-09-29] MEDS ORDERED: SUCCINYLCHOLINE CHLORIDE 100 MG/5 ML SYR IV ONE (11:04)
[2021-09-29] MEDS ORDERED: LIDOCAINE 2% INJ 20 MG/ML (2 ML VIAL) ONE (11:04)
--- NOTE | 2021-09-29 12:31 | P.OP ---
Date of Procedure: 09/29/21 Preoperative Diagnosis: Left shoulder impingement Postoperative Diagnosis: 1. Left shoulder rotator cuff tear 2. Left shoulder impingement Procedure(s) Performed: 1. Left shoulder arthroscopic rotator cuff repair 2. Left shoulder arthroscopic subacromial decompression Implants: 14.75 Arthrex swivel lock anchor Anesthesia: GETA, regional (Interscalene block) Surgeon: Fili Ribeiro Plasterer Journeyman #1: Keshawn Jacobo Estimated Blood Loss (ml): 9 Pathology: none sent Condition: stable Disposition: PACU Indications for Procedure: 41-year-old patient seen with progressive left shoulder pain. After having treatment options discussed he elected to proceed with left shoulder arthroscopy. Operative Findings: See description of procedure Description of Procedure: Patient underwent an interscalene block by department of anesthesia. The patient was then taken to the operative suite. The patient underwent a general anesthetic by the department of anesthesia. The patient was placed into a lateral position and secured. There was appropriate padding of the bony prominence. Left shoulder was then prepped and draped in normal sterile orthopedic fashion. We placed the extremity in 10 pounds of longitudinal traction. A posterior incision was now made for a posterior working portal site. The trocar and cannula were inserted into the glenohumeral joint. Arthroscopy was initiated. Spinal needle was now inserted anteriorly, to ascertain the anterior working portal site. An incision was now made in that area, a trocar was inserted followed by a probe. The glenohumeral joint appeared unremarkable with no evidence of significant chondromalacia. The labrum was probed and was found to be stable. The biceps tendon and anchor Ruple stable. Instruments were now removed from glenohumeral joint. Utilizing the posterior working portal site, the trocar and cannula were inserted into the subacromial space. Arthroscopy initiated. I made an incision 2 fingerbreadths lateral to the acromion. I introduced my trocar followed by my ArthroCare ablator. I now began ablating thick subacromial bursal tissue, which exposed the undersurface of the anterior acromion. There was diminished subacromial space. There was a very prominent anterior acromion. A motorized bur was introduced and a subacromial decompression was performed. I turned my attention to the acromioclavicular joint. I did note some mild arthritis. It appeared stable overall. I now turned my attention to the rotator cuff tendon. I noted a small tear along the distal supraspinatus tendon measuring approximately 1 cm. I debrided the margins getting down to stable tendon tissue. The defect now measured 1.5 cm and it was freely mobile over the footprint. I abraded the footprint with a motorized bur. With the assistance of Rao GUTHRIE I passed 2 everted mattress sutures through good bites of rotator cuff tendon. I now punched a hole in the footprint area for insertion of an anchor. All 4 limbs of suture were now passed through the eyelet of a 4.75 Arthrex swivel lock anchor. I placed the eyelet into the pre-punched hole. I held it in position while Rao GUTHRIE tensioned all 4 suture limbs and deployed the anchor with good fixation noted. All residual suture limbs were now clipped. We had good compression of the tendon along the entire footprint. Instruments now removed from the portal sites. All portal sites were approximated with nylon suture. Sterile dressings were applied followed by a shoulder sling. Keshawn GUTHRIE assisted in this case. The patient was awakened, transferred to a bed, and taken to recovery in stable condition.
[2021-09-29 12:58] VITALS: TEMP 97.4
[2021-09-29 14:45] VITALS: BP 130/84; PULSE 79
--- NOTE | 2021-09-29 19:35 | P.ANPRN ---
Procedure Note - Anesthesia - Nerve Block Performed Left Interscalene Single Time Out Performed: Yes Date of Procedure: 09/29/21 Procedure Start Time: 10:30 Procedure Stop Time: 10:36 Location of Patient: PreOp Indication: Acute Post-Operative Pain, Requested by Surgeon Sedation Type: Sedate with meaningful contact maintained Preparation: Sterile Prep Position: Supine Needle Types: Pajunk Needle Gauge: 21 Ultrasound used to visualize needle placement: Yes Ultrasound used to observe medication spread: Yes Blood Aspirated: No Pain Paresthesia on Injection Noted: No Resistance on Injection: Normal Image Stored and Saved: Yes Events: Uneventful and Well Tolerated (ropi .5% 20cc plus dexamethasone 4mg)
== END 2021-09-29 15:08 | disposition home or self-care (01) ==
LOC: OR 09:03
PROVIDERS: ATTEND Orthopaedic Surgery
DX: M75.102 Unspecified rotator cuff tear or rupture of left shoulder, not specified as traumatic (principal); M25.812 Other specified joint disorders, left shoulder; J45.909 Unspecified asthma, uncomplicated; Z98.890 Other specified postprocedural states; Z87.891 Personal history of nicotine dependence; Z86.73 Personal history of transient ischemic attack (TIA), and cerebral infarction without residual deficits; K21.9 Gastro-esophageal reflux disease without esophagitis; Z79.82 Long term (current) use of aspirin; Z79.899 Other long term (current) drug therapy; Z88.1 Allergy status to other antibiotic agents; Z88.5 Allergy status to narcotic agent; Z88.2 Allergy status to sulfonamides
CPT/HCPCS: 64415; 76942; 29826; 29827; C1713; J2250; J1100; J0690; J2405; J3010; J2795; J0330; J2704; J2001

== ENCOUNTER 2022-01-19 23:44 | Emergency (ER) | payer OTHER ==
[2022-01-20 00:11] VITALS: BP 137/84; PULSE 84; RESP 20; TEMP 98
--- NOTE | 2022-01-20 00:47 | XR ---
EXAMINATION TYPE: XR chest 2V DATE OF EXAM: 01/20/2022 COMPARISON: 01/18/2021 HISTORY: Cough and fever TECHNIQUE: 2 views FINDINGS: Heart is normal. Lungs are clear of infiltrate. No heart failure. There are no hilar masses . The bony thorax is intact IMPRESSION: Normal chest.. No change.
--- NOTE | 2022-01-20 03:13 | ED ---
URI HPI - General Chief Complaint: Upper Respiratory Infection Stated Complaint: cough, fever Time Seen by Provider: 01/20/22 02:33 Source: patient Mode of arrival: ambulatory Limitations: no limitations - History of Present Illness Initial Comments: Patient is a 41-year-old male presenting with chief complaint of cough. Cough has been ongoing for the last week. Patient also admits to intermittent fever. Cough is productive of green sputum. Patient denies any chest pain or shortness of breath. He has been taking Motrin and Tylenol for his symptoms. No sore throat, ear pain, sinus pain, nausea, vomiting, diarrhea, hematochezia, melena, dysuria, hematuria, abdominal pain. - Related Data Home Medications Medication Instructions Recorded Confirmed Aspirin EC [Ecotrin] 325 mg PO HS 04/01/20 09/29/21 Atorvastatin [Lipitor] 40 mg PO HS 04/01/20 09/29/21 Previous Rx's Medication Instructions Recorded HYDROcodone/APAP 7.5-325MG [Moffit 1 each PO Q6HR PRN #28 tab 09/29/21 7.5] Albuterol Inhaler [Ventolin Hfa 1 - 2 puff INHALATION Q4-6H PRN #1 01/20/22 Inhaler] unit Azithromycin [Zithromax Z Pack] 1 tab PO DIRECTED #6 tab 01/20/22 methylPREDNISolone Dose Pack 4 mg PO DIRECTED #1 packet 01/20/22 [Medrol Dose Pack] Allergies Allergy/AdvReac Type Severity Reaction Status Date / Time erythromycin base Allergy Anaphylaxis Verified 01/20/22 00:11 [Erythromycin Base] Penicillins Allergy Anaphylaxis Verified 01/20/22 00:11 sulfamethoxazole Allergy Anaphylaxis Verified 01/20/22 00:11 [From Septra] trimethoprim [From Decra] Allergy Anaphylaxis Verified 01/20/22 00:11 morphine AdvReac Hallucinati Verified 01/20/22 00:11 ons Review of Systems ROS Statement: Those systems with pertinent positive or pertinent negative responses have been documented in the HPI. ROS Other: All systems not noted in ROS Statement are negative. Past Medical History Past Medical History: Asthma, CVA/TIA, GERD/Reflux, Hyperlipidemia, Hypertension, Osteoarthritis (OA) Additional Past Medical History / Comment(s): Hx CVA 12/2018, memory problems since, forgetful. Back pain and left shoulder pain. Hx Meningitis as an . Varicose vein on left testicle. Nodules on lungs, Dr is watching. History of Any Multi-Drug Resistant Organisms: None Reported Past Surgical History: Heart Catheterization, Orthopedic Surgery Additional Past Surgical History / Comment(s): (No stents) Left thumb surgery. left rotator cuff surgery Past Anesthesia/Blood Transfusion Reactions: No Reported Reaction Past Psychological History: ADD/ADHD, Bipolar Smoking Status: Former smoker Past Alcohol Use History: Occasional Past Drug Use History: None Reported - Past Family History Mother Family Medical History: Cancer, Hypertension General Exam Limitations: no limitations General appearance: alert, in no apparent distress Head exam: Present: atraumatic, normocephalic, normal inspection Eye exam: Present: normal appearance, EOMI. Absent: scleral icterus, periorbital swelling ENT exam: Present: normal exam, normal oropharynx, mucous membranes moist, TM's normal bilaterally Neck exam: Present: normal inspection, full ROM. Absent: tenderness Respiratory exam: Present: normal lung sounds bilaterally. Absent: respiratory distress, wheezes, rales, rhonchi, stridor Cardiovascular Exam: Present: regular rate, normal rhythm, normal heart sounds. Absent: systolic murmur, diastolic murmur, rubs, gallop, clicks Neurological exam: Present: alert, oriented X3, CN II-XII intact Psychiatric exam: Present: normal affect, normal mood Skin exam: Present: warm, dry, intact, normal color. Absent: rash Course Vital Signs 01/20/22 00:06 Temperature 98.0 F Pulse Rate 84 Respiratory 20 Rate Blood Pressure 137/84 O2 Sat by Pulse 97 Oximetry Medical Decision Making - Medical Decision Making Patient is a 41-year-old male presenting with chief complaint of cough and fever for the last week. On examination her lungs are clear to auscultation. Patient is negative for Covid and influenza. Chest x-ray shows no acute process. Patient will be treated with azithromycin, Medrol Dosepak, albuterol inhaler. Follow-up with PCP. Report back to ER with any new or worsening symptoms. Discussed return parameters and answered all questions. Patient conveyed verbal understanding and agreed to the plan. I discussed this case in detail with my attending Dr. Lawrence. - Lab Data Lab Results 01/20/22 01/20/22 Range/Units 00:15 00:15 Coronavirus (PCR) Not Detected (Not Detectd) Influenza Type A RNA Not Detected (Not Detectd) Influenza Type B (PCR) Not Detected (Not Detectd) Disposition Clinical Impression: Upper respiratory tract infection Disposition: HOME SELF-CARE Condition: Good Instructions (If sedation given, give patient instructions): Upper Respiratory Infection (ED) Additional Instructions: Follow-up with PCP. Report back to ER with any new or worsening symptoms. Take Motrin and Tylenol as needed for fever and pain control. Take medication as prescribed. Prescriptions: methylPREDNISolone Dose Pack [Medrol Dose Pack] 4 mg PO DIRECTED #1 packet Albuterol Inhaler [Ventolin Hfa Inhaler] 1 - 2 puff INHALATION Q4-6H PRN #1 unit PRN Reason: Shortness Of Breath Azithromycin [Zithromax Z Pack] 1 tab PO DIRECTED #6 tab Is patient prescribed a controlled substance at d/c from ED?: No Referrals: [facility] [Primary Care Provider] - 1-2 days Time of Disposition: 03:13
== END 2022-01-20 04:03 | disposition home or self-care (01) ==
LOC: EC 23:44
DX: J06.9 Acute upper respiratory infection, unspecified (principal); J45.909 Unspecified asthma, uncomplicated; K21.9 Gastro-esophageal reflux disease without esophagitis; E78.5 Hyperlipidemia, unspecified; I10 Essential (primary) hypertension; M19.90 Unspecified osteoarthritis, unspecified site; Z86.73 Personal history of transient ischemic attack (TIA), and cerebral infarction without residual deficits; F31.9 Bipolar disorder, unspecified; Z87.891 Personal history of nicotine dependence; Z88.1 Allergy status to other antibiotic agents; Z88.0 Allergy status to penicillin; Z88.2 Allergy status to sulfonamides; Z79.51 Long term (current) use of inhaled steroids; Z79.82 Long term (current) use of aspirin; Z20.822 Contact with and (suspected) exposure to COVID-19
CPT/HCPCS: 71046; 87502; 87635; 99283

== ENCOUNTER 2022-01-25 21:21 | Emergency (ER) | payer OTHER ==
[2022-01-25] MEDS ORDERED: SODIUM CHLORIDE 0.9% 500 ML 500 ML IV STA (23:17)
[2022-01-25] MEDS ORDERED: IPRATROPIUM-ALBUTEROL 3 ML NEB INHALATION STA (23:17)
--- NOTE | 2022-01-25 23:18 | ED ---
URI HPI - General Chief Complaint: Upper Respiratory Infection Stated Complaint: coughing up blood Time Seen by Provider: 01/25/22 23:17 Source: patient, RN notes reviewed, old records reviewed Mode of arrival: ambulatory Limitations: no limitations - History of Present Illness Initial Comments: This 41-year-old male DF for evaluation. Patient a cough congestion with recent medication treatment antibiotics treatment steroids. Patient has history of asthma COPD. No fevers, no chest pain. Patient is coughing up blood today. Patient's main concern is a coughing up blood MD Complaint: cough -: hour(s) Severity: moderate Severity scale (1-10): 5 Quality: sharp Consistency: intermittent Improves With: nothing Worsens With: nothing Context: sick contacts Associated Symptoms: denies other symptoms, sore throat Treatments Prior to Arrival: none - Related Data Home Medications Medication Instructions Recorded Confirmed Aspirin EC [Ecotrin] 325 mg PO HS 04/01/20 09/29/21 Atorvastatin [Lipitor] 40 mg PO HS 04/01/20 09/29/21 Previous Rx's Medication Instructions Recorded HYDROcodone/APAP 7.5-325MG [[place] 1 each PO Q6HR PRN #28 tab 09/29/21 7.5] Albuterol Inhaler [Ventolin Hfa 1 - 2 puff INHALATION Q4-6H PRN #1 01/20/22 Inhaler] unit Azithromycin [Zithromax Z Pack] 1 tab PO DIRECTED #6 tab 01/20/22 methylPREDNISolone Dose Pack 4 mg PO DIRECTED #1 packet 01/20/22 [Medrol Dose Pack] Albuterol Nebulized [Ventolin 2.5 mg INHALATION Q4H PRN #25 each 01/26/22 Nebulized] Benzonatate [Tessalon Perles] 100 mg PO TID PRN #30 capsule 01/26/22 Budesonide [Pulmicort] 1 mg INHALATION BID #60 ml 01/26/22 Allergies Allergy/AdvReac Type Severity Reaction Status Date / Time erythromycin base Allergy Anaphylaxis Verified 01/25/22 22:06 [Erythromycin Base] Penicillins Allergy Anaphylaxis Verified 01/25/22 22:06 sulfamethoxazole Allergy Anaphylaxis Verified 01/25/22 22:06 [From Septra] trimethoprim [From Decra] Allergy Anaphylaxis Verified 01/25/22 22:06 morphine AdvReac Hallucinati Verified 01/25/22 22:06 ons Review of Systems ROS Statement: Those systems with pertinent positive or pertinent negative responses have been documented in the HPI. ROS Other: All systems not noted in ROS Statement are negative. Past Medical History Past Medical History: Asthma, CVA/TIA, GERD/Reflux, Hyperlipidemia, Hypertension, Osteoarthritis (OA) Additional Past Medical History / Comment(s): Hx CVA 12/2018, memory problems since, forgetful. Back pain and left shoulder pain. Hx Meningitis as an infant. Varicose vein on left testicle. Nodules on lungs, is watching. History of Any Multi-Drug Resistant Organisms: None Reported Past Surgical History: Heart Catheterization, Orthopedic Surgery Additional Past Surgical History / Comment(s): (No stents) Left thumb surgery. left rotator cuff surgery Past Anesthesia/Blood Transfusion Reactions: No Reported Reaction Past Psychological History: ADD/ADHD, Bipolar Smoking Status: Former smoker Past Alcohol Use History: Occasional Past Drug Use History: None Reported - Past Family History Mother Family Medical History: Cancer, Hypertension General Exam Limitations: no limitations General appearance: alert, in no apparent distress Head exam: Present: atraumatic, normocephalic, normal inspection Eye exam: Present: normal appearance, PERRL, EOMI. Absent: scleral icterus, conjunctival injection, periorbital swelling ENT exam: Present: normal exam, mucous membranes moist Neck exam: Present: normal inspection. Absent: tenderness, meningismus, lymphadenopathy Respiratory exam: Present: normal lung sounds bilaterally. Absent: respiratory distress, wheezes, rales, rhonchi, stridor Cardiovascular Exam: Present: regular rate, normal rhythm, normal heart sounds. Absent: systolic murmur, diastolic murmur, rubs, gallop, clicks GI/Abdominal exam: Present: soft, normal bowel sounds. Absent: distended, tenderness, guarding, rebound, rigid Extremities exam: Present: normal inspection, full ROM, normal capillary refill. Absent: tenderness, pedal edema, joint swelling, calf tenderness Back exam: Present: normal inspection Neurological exam: Present: alert, oriented X3, CN II-XII intact Psychiatric exam: Present: normal affect, normal mood Skin exam: Present: warm, dry, intact, normal color. Absent: rash Course Vital Signs 01/25/22 01/25/22 01/25/22 22:06 23:47 23:56 Temperature 98 F Pulse Rate 74 78 80 Respiratory 20 Rate Blood Pressure 148/89 O2 Sat by Pulse 99 Oximetry 01/26/22 02:42 Temperature 97.9 F Pulse Rate 80 Respiratory 18 Rate Blood Pressure 146/88 O2 Sat by Pulse 100 Oximetry - Reevaluation(s) Reevaluation #1: Medical record is reviewed Symptoms have been improved here in the ER Patient informed results and questions answered Medical Decision Making - Medical Decision Making 41 male with cough and congestion coughing of blood, not significant. No lightheadedness or dizziness. Values are normal, patient's blood in vomit is mild - Lab Data Result diagrams: 01/25/22 23:45 01/25/22 23:45 Lab Results 01/25/22 01/25/22 01/25/22 Range/Units 23:45 23:45 23:45 WBC 10.6 (3.8-10.6) k/uL RBC 5.07 (4.30-5.90) m/uL Hgb 14.6 (13.0-17.5) gm/dL Hct 43.5 (39.0-53.0) % MCV 85.7 (80.0-100.0) fL MCH 28.7 (25.0-35.0) pg MCHC 33.5 (31.0-37.0) g/dL RDW 12.7 (11.5-15.5) % Plt Count 290 (150-450) k/uL MPV 7.2 Neutrophils % 62 % Lymphocytes % 21 % Monocytes % 9 % Eosinophils % 4 % Basophils % 1 % Neutrophils # 6.6 (1.3-7.7) k/uL Lymphocytes # 2.2 (1.0-4.8) k/uL Monocytes # 1.0 (0-1.0) k/uL Eosinophils # 0.4 (0-0.7) k/uL Basophils # 0.1 (0-0.2) k/uL PT 9.9 (9.0-12.0) sec INR 0.9 (<1.2) APTT 25.5 (22.0-30.0) sec D-Dimer <0.17 (<0.60) mg/L FEU Sodium 136 L (137-145) mmol/L Potassium 4.1 (3.5-5.1) mmol/L Chloride 100 (98-107) mmol/L Carbon Dioxide 23 (22-30) mmol/L Anion Gap 13 mmol/L BUN 18 (9-20) mg/dL Creatinine 0.75 (0.66-1.25) mg/dL Est GFR (CKD-EPI)AfAm >90 (>60 ml/min/1.73 sqM) Est GFR (CKD-EPI)NonAf >90 (>60 ml/min/1.73 sqM) Glucose 87 (74-99) mg/dL Calcium 9.3 (8.4-10.2) mg/dL Magnesium 2.0 (1.6-2.3) mg/dL Total Bilirubin 0.6 (0.2-1.3) mg/dL AST 40 (17-59) U/L ALT 40 (4-49) U/L Alkaline Phosphatase 73 (38-126) U/L Troponin I (0.000-0.034) ng/mL NT-Pro-B Natriuret Pep pg/mL Total Protein 7.1 (6.3-8.2) g/dL Albumin 4.3 (3.5-5.0) g/dL 01/25/22 01/25/22 Range/Units 23:45 23:45 WBC (3.8-10.6) k/uL RBC (4.30-5.90) m/uL Hgb (13.0-17.5) gm/dL Hct (39.0-53.0) % MCV (80.0-100.0) fL MCH (25.0-35.0) pg MCHC (31.0-37.0) g/dL RDW (11.5-15.5) % Plt Count (150-450) k/uL MPV Neutrophils % % Lymphocytes % % Monocytes % % Eosinophils % % Basophils % % Neutrophils # (1.3-7.7) k/uL Lymphocytes # (1.0-4.8) k/uL Monocytes # (0-1.0) k/uL Eosinophils # (0-0.7) k/uL Basophils # (0-0.2) k/uL PT (9.0-12.0) sec INR (<1.2) APTT (22.0-30.0) sec D-Dimer (<0.60) mg/L FEU Sodium (137-145) mmol/L Potassium (3.5-5.1) mmol/L Chloride (98-107) mmol/L Carbon Dioxide (22-30) mmol/L Anion Gap mmol/L BUN (9-20) mg/dL Creatinine (0.66-1.25) mg/dL Est GFR (CKD-EPI)AfAm (>60 ml/min/1.73 sqM) Est GFR (CKD-EPI)NonAf (>60 ml/min/1.73 sqM) Glucose (74-99) mg/dL Calcium (8.4-10.2) mg/dL Magnesium (1.6-2.3) mg/dL Total Bilirubin (0.2-1.3) mg/dL AST (17-59) U/L ALT (4-49) U/L Alkaline Phosphatase (38-126) U/L Troponin I <0.012 (0.000-0.034) ng/mL NT-Pro-B Natriuret Pep 14 pg/mL Total Protein (6.3-8.2) g/dL Albumin (3.5-5.0) g/dL - EKG Data -: EKG Interpreted by Me (EKG is sinus 71 ME 168 QRS 94 QTC 389) - Radiology Data Radiology results: report reviewed (Chest x-rays negative for acute disease), image reviewed Disposition Clinical Impression: Hemoptysis Disposition: HOME SELF-CARE Condition: Good Instructions (If sedation given, give patient instructions): Coughing Up Blood (Hemoptysis) (ED) Prescriptions: Budesonide [Pulmicort] 1 mg INHALATION BID #60 ml Benzonatate [Tessalon Perles] 100 mg PO TID PRN #30 capsule PRN Reason: Cough Albuterol Nebulized [Ventolin Nebulized] 2.5 mg INHALATION Q4H PRN #25 each PRN Reason: Shortness Of Breath Is patient prescribed a controlled substance at d/c from ED?: No Referrals: [facility] [Primary Care Provider] - 1-2 days Time of Disposition: 01:45
[2022-01-25 23:57] VITALS: PULSE 80
[2022-01-26 00:02] LABS: Basophils # (A) 0.1 k/uL (0-0.2); Basophils % (A) 1 %; Eosinophils # (A) 0.4 k/uL (0-0.7); Eosinophils % (A) 4 %; HCT 43.5 % (39.0-53.0); HGB 14.6 gm/dL (13.0-17.5); Lymphocytes # (A) 2.2 k/uL (1.0-4.8); Lymphocytes % (A) 21 %; MCH 28.7 pg (25.0-35.0); MCHC 33.5 g/dL (31.0-37.0); MCV 85.7 fL (80.0-100.0); Mean Platelet Volume 7.2; Monocytes % (A) 9 %; Neutrophils # (A) 6.6 k/uL (1.3-7.7); Neutrophils % (A) 62 %; Platelet Count 290 k/uL (150-450); RBC 5.07 m/uL (4.30-5.90); RDW 12.7 % (11.5-15.5); WBC 10.6 k/uL (3.8-10.6)
--- NOTE | 2022-01-26 00:14 | XR ---
EXAMINATION TYPE: XR chest 2V DATE OF EXAM: 01/26/2022 COMPARISON: 01/20/2022 HISTORY: Short of breath TECHNIQUE: 2 views FINDINGS: Heart and mediastinum are normal. Lungs are clear. Diaphragm is normal. Bony thorax is inta ct there are chest leads. IMPRESSION: Normal chest. No change.
[2022-01-26 00:18] LABS: INR 0.9 (<1.2); Partial Thromboplastin Time 25.5 sec (22.0-30.0); Prothrombin Time 9.9 sec (9.0-12.0)
[2022-01-26 00:30] LABS: ALT 40 U/L (4-49); AST 40 U/L (17-59); African American GFR (CKD) >90 (>60 ml/min/1.73 sqM); Albumin 4.3 g/dL (3.5-5.0); Alkaline Phosphatase 73 U/L (38-126); Anion Gap 13 mmol/L; Blood Urea Nitrogen 18 mg/dL (9-20); Calcium 9.3 mg/dL (8.4-10.2); Carbon Dioxide 23 mmol/L (22-30); Chloride 100 mmol/L (98-107); Glucose 87 mg/dL (74-99); Non-African American GFR(CKD) >90 (>60 ml/min/1.73 sqM); Potassium 4.1 mmol/L (3.5-5.1); Sodium 136 mmol/L (137-145); Total Bilirubin 0.6 mg/dL (0.2-1.3); Total Protein 7.1 g/dL (6.3-8.2)
[2022-01-26] MEDS ORDERED: ACETAMINOPHEN TAB 500 MG TAB PO STA (01:45)
[2022-01-26] MEDS ORDERED: KETOROLAC 15 MG/ML 1 ML VIAL IVP STA (01:45)
[2022-01-26 02:43] VITALS: BP 146/88; RESP 18; TEMP 97.9
== END 2022-01-26 02:45 | disposition home or self-care (01) ==
LOC: EC 21:21
DX: R04.2 Hemoptysis (principal); J45.909 Unspecified asthma, uncomplicated; K21.9 Gastro-esophageal reflux disease without esophagitis; E78.5 Hyperlipidemia, unspecified; I10 Essential (primary) hypertension; Z87.891 Personal history of nicotine dependence; Z88.0 Allergy status to penicillin; Z88.2 Allergy status to sulfonamides; Z88.6 Allergy status to analgesic agent; Z88.1 Allergy status to other antibiotic agents; Z79.51 Long term (current) use of inhaled steroids; Z79.899 Other long term (current) drug therapy
CPT/HCPCS: 36415; 94640; 93005; 85379; 83880; 80053; 83735; 84484; 85025; 85610; 85730; 71046; 99284; 96374; 96361; J1885

== ENCOUNTER 2024-06-06 20:57 | Emergency (ER) | payer OTHER ==
[2024-06-06 21:02] VITALS: TEMP 98
[2024-06-06 21:33] LABS: Basophils # (A) 0.1 k/uL (0-0.2); Basophils % (A) 1 %; Eosinophils # (A) 0.5 k/uL (0-0.7); Eosinophils % (A) 4 %; HCT 46.4 % (39.0-53.0); HGB 15.5 gm/dL (13.0-17.5); Lymphocytes # (A) 2.9 k/uL (1.0-4.8); Lymphocytes % (A) 26 %; MCH 29.1 pg (25.0-35.0); MCHC 33.5 g/dL (31.0-37.0); MCV 86.8 fL (80.0-100.0); Mean Platelet Volume 7.2; Monocytes # (A) 0.7 k/uL (0-1.0); Monocytes % (A) 6 %; Neutrophils # (A) 6.9 k/uL (1.3-7.7); Neutrophils % (A) 61 %; Platelet Count 256 k/uL (150-450); RBC 5.34 m/uL (4.30-5.90); RDW 12.7 % (11.5-15.5); WBC 11.3 k/uL (3.8-10.6)
[2024-06-06 21:43] LABS: INR 0.9 (<1.2); Partial Thromboplastin Time 26.5 sec (22.0-30.0); Prothrombin Time 10.1 sec (10.0-12.5)
[2024-06-06 21:44] LABS: ALT 24 U/L (4-49); AST 29 U/L (17-59); African American GFR (CKD) >90 (>60 ml/min/1.73 sqM); Albumin 4.5 g/dL (3.5-5.0); Alkaline Phosphatase 58 U/L (38-126); Anion Gap 10 mmol/L; Blood Urea Nitrogen 16 mg/dL (9-20); Calcium 9.9 mg/dL (8.4-10.2); Carbon Dioxide 24 mmol/L (22-30); Chloride 103 mmol/L (98-107); Glucose 125 mg/dL (74-99); Magnesium 2.2 mg/dL (1.6-2.3); Non-African American GFR(CKD) >90 (>60 ml/min/1.73 sqM); Sodium 137 mmol/L (137-145)
--- NOTE | 2024-06-06 21:50 | XR ---
EXAMINATION TYPE: XR chest 2V DATE OF EXAM: 06/06/2024 9:43 PM COMPARISON: Chest radiographs from 17/01/2022 CLINICAL INDICATION: Male, 44 years old with history of Chest Pain; TECHNIQUE: XR chest 2V Frontal and lateral views of the chest. FINDINGS: Lungs/Pleura: There is no evidence of pleural effusion, focal consolidation, or pneumothorax. Pulmonary vascularity: Unremarkable. Heart/mediastinum: Cardiomediastinal silhouette is unremarkable. Musculoskeletal: No acute osseous pathology. IMPRESSION: No acute cardiopulmonary disease/process. [facility], , 06/06/2024 9:48 PM
--- NOTE | 2024-06-06 22:00 | ED ---
Chest Pain HPI - General Source: patient, family, RN notes reviewed Mode of arrival: wheelchair Limitations: no limitations <Dodie Salter - Last Filed: 06/06/24 21:59> - History of Present Illness MD Complaint: chest pain Onset/Timin -: days(s) Onset: during rest Pain Location: substernal Pain Radiation: none Severity: moderate Quality: tightness Consistency: constant Improves With: nothing Worsens With: nothing Anginal Symptoms: dyspnea Treatments Prior to Arrival: none <Juan Diego Lawrence - Last Filed: 06/17/24 18:37> - General Chief Complaint: Chest Pain Stated Complaint: Chest Pain,Sob Time Seen by Provider: 06/06/24 21:59 - History of Present Illness Initial Comments: Quick note: 44-year-old male presented the ER for evaluation of chest discomfort. He states has been going on for the past couple of days and describes it as a pressure/tight feeling. He also endorses shortness of breath and lightheadedness. No nausea or vomiting. Patient follows up with a assistant manager retail out of [place]. (Dodie Salter) - Related Data Home Medications Medication Instructions Recorded Confirmed Aspirin EC [Ecotrin] 325 mg PO HS 04/01/20 09/29/21 Atorvastatin [Lipitor] 40 mg PO HS 04/01/20 09/29/21 Previous Rx's Medication Instructions Recorded HYDROcodone/APAP 7.5-325MG [[place] 1 each PO Q6HR PRN #28 tab 09/29/21 7.5] Albuterol Inhaler [Ventolin Hfa 1 - 2 puff INHALATION Q4-6H PRN #1 01/20/22 Inhaler] unit Azithromycin [Zithromax Z Pack] 1 tab PO DIRECTED #6 tab 01/20/22 methylPREDNISolone Dose Pack 4 mg PO DIRECTED #1 packet 01/20/22 [Medrol Dose Pack] Albuterol Nebulized [Ventolin 2.5 mg INHALATION Q4H PRN #25 each 01/26/22 Nebulized] Benzonatate [Tessalon Perles] 100 mg PO TID PRN #30 capsule 01/26/22 Budesonide [Pulmicort] 1 mg INHALATION BID #60 ml 01/26/22 Allergies Allergy/AdvReac Type Severity Reaction Status Date / Time erythromycin base Allergy Anaphylaxis Verified 06/06/24 20:59 [Erythromycin Base] Penicillins Allergy Anaphylaxis Verified 06/06/24 20:59 sulfamethoxazole Allergy Anaphylaxis Verified 06/06/24 20:59 [From Septra] trimethoprim [From ] Allergy Anaphylaxis Verified 06/06/24 20:59 morphine AdvReac Hallucinati Verified 06/06/24 20:59 ons Review of Systems ROS Other: All systems not noted in ROS Statement are negative. <Dodie Salter - Last Filed: 06/06/24 21:59> ROS Other: All systems not noted in ROS Statement are negative. Constitutional: Denies: fever, chills, weakness Respiratory: Reports: dyspnea. Denies: cough Cardiovascular: Reports: chest pain. Denies: palpitations, edema, syncope Gastrointestinal: Denies: abdominal pain, nausea, vomiting Genitourinary: Denies: dysuria, hematuria Musculoskeletal: Denies: back pain Skin: Denies: rash Neurological: Denies: headache, weakness <Juan Diego Lawrence - Last Filed: 06/17/24 18:37> ROS Statement: Those systems with pertinent positive or pertinent negative responses have been documented in the HPI. EKG Findings - EKG Results: EKG: interpreted by [facility], sinus rhythm (Rate 77 bpm), normal axis, normal QRS - Blocks, Michael, Hypertrophy, ST Abn: Repolarization changes or abnormalities: nonspecific abnormality, ST segment, and/or T wave <Juan Diego Lawrence - Last Filed: 06/17/24 18:37> Past Medical History Past Medical History: Asthma, CVA/TIA, GERD/Reflux, Hyperlipidemia, Hypertension, Osteoarthritis (OA) Additional Past Medical History / Comment(s): Hx CVA 12/2018, memory problems since, forgetful. Back pain and left shoulder pain. Hx Meningitis as an infant. Varicose vein on left testicle. Nodules on lungs, Dr is watching. History of Any Multi-Drug Resistant Organisms: None Reported Past Surgical History: Heart Catheterization, Orthopedic Surgery Additional Past Surgical History / Comment(s): (No stents) Left thumb surgery. left rotator cuff surgery Past Anesthesia/Blood Transfusion Reactions: No Reported Reaction Past Psychological History: ADD/ADHD, Bipolar Smoking Status: Former smoker Past Alcohol Use History: Occasional Past Drug Use History: None Reported - Past Family History Mother Family Medical History: Cancer, Hypertension <Dodie Salter - Last Filed: 06/06/24 21:59> General Exam Limitations: no limitations <Dodie Salter - Last Filed: 06/06/24 21:59> General appearance: alert, in no apparent distress Head exam: Present: atraumatic, normocephalic Eye exam: Present: normal appearance. Absent: scleral icterus, conjunctival injection ENT exam: Present: normal oropharynx Neck exam: Present: normal inspection Respiratory exam: Present: normal lung sounds bilaterally. Absent: respiratory distress, wheezes, rales, rhonchi, stridor, accessory muscle use Cardiovascular Exam: Present: regular rate, normal rhythm, normal heart sounds. Absent: systolic murmur, diastolic murmur, rubs, gallop GI/Abdominal exam: Present: soft. Absent: distended, tenderness, guarding, rebound, rigid, mass Extremities exam: Present: normal inspection, normal capillary refill. Absent: pedal edema, calf tenderness Back exam: Present: normal inspection. Absent: CVA tenderness (R), CVA tenderness (L) Neurological exam: Present: alert Skin exam: Present: warm, dry, intact, normal color. Absent: rash <Juan Diego Lawrence - Last Filed: 06/17/24 18:37> - General Exam Comments Initial Comments: Visual Physical Exam Vital signs reviewed General: Well-appearing, nontoxic, no acute distress. Head: Normocephalic, atraumatic Eyes: PERRLA, EOMI ENT: Airway patent Chest: Nonlabored breathing Skin: No visual rash, normal skin tone Neuro: Alert and oriented 3 Musculoskeletal: No gross abnormalities (Dodie Salter) Course Vital Signs 06/06/24 06/07/24 06/07/24 21:00 00:00 01:00 Temperature 98.0 F Pulse Rate 87 60 58 L Respiratory 18 16 18 Rate Blood Pressure 118/84 104/63 108/73 O2 Sat by Pulse 96 97 96 Oximetry Chest Pain MDM <Dodie Salter - Last Filed: 06/06/24 21:59> <Juan Diego Lawrence - Last Filed: 06/17/24 18:37> - MDM I performed the quick note portion of this chart. Electronically signed by Dodie Salter PA-C (Dodie Salter) The patient had chest x-ray that I interpreted as negative for acute infiltrate, pneumothorax, congestive heart failure Was pt. sent in by a medical professional or institution (, JERRI, ECONOMICS PROFESSOR, urgent care, hospital, or [facility]...) When possible be specific @ -[No] Did you speak to anyone other than the patient for history (EMS, parent, family, police, friend...)? What history was obtained from this source @ -[No] Did you review nursing and triage notes (agree or disagree)? Why? @ -[I reviewed and agree with nursing and triage notes] Were old charts reviewed (outside hosp., previous admission, EMS record, old EKG, old radiological studies, urgent care reports/EKG's, [facility] records)? Report findings @ -[No old charts were reviewed] Differential Diagnosis (chest pain, altered mental status, abdominal pain women, abdominal pain men, vaginal bleeding, weakness, fever, dyspnea, syncope, headache, dizziness, GI bleed, back pain, seizure, CVA, palpatations, mental health, musculoskeletal)? @ -[Differential Chest Pain: Stable Angina, Unstable Angina, STEMI, NSTEMI Aortic Dissection, Pneumothorax, Musculoskeletal, Esophageal Spasm GERD, Cholecystitis, Pancreatitis, Zoster, this is not meant to be an all-inclusive list. EKG interpreted by me (3pts min.). @ -[I interpreted as above] X-rays interpreted by me (1pt min.). @ -[I interpreted as above CT interpreted by me (1pt min.). @ -[None done] U/S interpreted by me (1pt. min.). @ -[None done] What testing was considered but not performed or refused? (CT, X-rays, U/S, labs)? Why? @ -[None] What meds were considered but not given or refused? Why? @ -[None] Did you discuss the management of the patient with other professionals (professionals i.e. JERRI Whitney, ECONOMICS PROFESSOR, lab, RT, psych nurse, social sciences lecturer, field sales executive, teacher, immigration officer, caser shoe parts)? Give summary @ -[No] Was smoking cessation discussed for >3mins.? @ -[No] Was critical care preformed (if so, how long)? @ -[No] Were there social determinants of health that impacted care today? How? (Homelessness, low income, unemployed, alcoholism, drug addiction, transportation, low edu. Level, literacy, decrease access to med. care, custodial, rehab)? @ -[No] Was there de-escalation of care discussed even if they declined (Discuss DNR or withdrawal of care, Hospice)? DNR status @ -[No] What co-morbidities impacted this encounter? (DM, HTN, Smoking, COPD, CAD, Cancer, CVA, ARF, Chemo, Hep., AIDS, mental health diagnosis, sleep apnea, morbid obesity)? @ -[None] Was patient admitted / discharged? Hospital course, mention meds given and route, prescriptions, significant lab abnormalities, going to OR and other pertinent info. @ -[This patient is a 44-year-old man presenting to have evaluation of chest pain. The patient's initial workup not suggestive of acute ischemia. Discussed that patient will require having stress test in the near future and at this point he would rather do this as outpatient. Discussed appropriate further care and follow-up as well as return parameters Undiagnosed new problem with uncertain prognosis? @ -[No] Drug Therapy requiring intensive monitoring for toxicity (Heparin, Nitro, Insulin, Cardizem)? @ -[No] Were any procedures done? @ -[No] Diagnosis/symptom? @ -[Acute chest pain Acute, or Chronic, or Acute on Chronic? @ -[Acute Uncomplicated (without systemic symptoms) or Complicated (systemic symptoms)? @ -[Uncomplicated Side effects of treatment? @ -[No] Exacerbation, Progression, or Severe Exacerbation? @ -[No] Poses a threat to life or bodily function? How? (Chest pain, USA, CT, pneumonia, PE, COPD, DKA, ARF, appy, cholecystitis, CVA, Diverticulitis, Homicidal, Suicidal, threat to staff... and all critical care pts) @ -[No] All treatments are based on ideal body weight as in ED triage (Juan Diego Lawrence) Disposition <Dodie Salter - Last Filed: 06/06/24 21:59> Is patient prescribed a controlled substance at d/c from ED?: No <Juan Diego Lawrence - Last Filed: 06/17/24 18:37> Clinical Impression: Chest pain Disposition: HOME SELF-CARE Condition: Good Instructions (If sedation given, give patient instructions): Chest Pain (ED) Referrals: [facility] [Primary Care Provider] - 1-2 days Awais Cancino MD [STAFF PHYSICIAN] - 1-2 days
[2024-06-07 01:19] VITALS: BP 108/73; PULSE 58; RESP 18
== END 2024-06-07 01:42 | disposition home or self-care (01) ==
LOC: EC 20:57
DX: R07.9 Chest pain, unspecified (principal); Z87.891 Personal history of nicotine dependence; Z88.1 Allergy status to other antibiotic agents; Z88.0 Allergy status to penicillin; Z88.2 Allergy status to sulfonamides; Z88.5 Allergy status to narcotic agent
CPT/HCPCS: 36415; 71046; 80053; 83735; 84484; 85025; 85610; 85730; 93005; 99285

== ENCOUNTER 2024-07-01 18:57 | Emergency (ER) | payer OTHER ==
[2024-07-01 19:24] VITALS: RESP 18
--- NOTE | 2024-07-01 19:48 | ED ---
General Adult HPI - General Stated complaint: Congestion,bodyaches Time Seen by Provider: 07/01/24 19:10 Source: patient, RN notes reviewed Mode of arrival: ambulatory Limitations: no limitations - History of Present Illness Initial comments: 44-year-old male presents emergency department with chief complaint of cough congestion fever chills body aches. Symptoms started last 3 days. Patient's son tested positive for influenza A on . Patient states that has been taking [id number] TheraFlu he is had mild abdominal cramping, diarrhea. - Related Data Home Medications Medication Instructions Recorded Confirmed Aspirin EC [Ecotrin] 325 mg PO HS 04/01/20 09/29/21 Atorvastatin [Lipitor] 40 mg PO HS 04/01/20 09/29/21 Previous Rx's Medication Instructions Recorded HYDROcodone/APAP 7.5-325MG [[place] 1 each PO Q6HR PRN #28 tab 09/29/21 7.5] Albuterol Inhaler [Ventolin Hfa 1 - 2 puff INHALATION Q4-6H PRN #1 01/20/22 Inhaler] unit Azithromycin [Zithromax Z Pack] 1 tab PO DIRECTED #6 tab 01/20/22 methylPREDNISolone Dose Pack 4 mg PO DIRECTED #1 packet 01/20/22 [Medrol Dose Pack] Albuterol Nebulized [Ventolin 2.5 mg INHALATION Q4H PRN #25 each 01/26/22 Nebulized] Benzonatate [Tessalon Perles] 100 mg PO TID PRN #30 capsule 01/26/22 Budesonide [Pulmicort] 1 mg INHALATION BID #60 ml 01/26/22 Allergies Allergy/AdvReac Type Severity Reaction Status Date / Time erythromycin base Allergy Anaphylaxis Verified 07/01/24 19:21 [Erythromycin Base] Penicillins Allergy Anaphylaxis Verified 07/01/24 19:21 sulfamethoxazole Allergy Anaphylaxis Verified 07/01/24 19:21 [From Septra] trimethoprim [From Decra] Allergy Anaphylaxis Verified 07/01/24 19:21 morphine AdvReac Hallucinati Verified 07/01/24 19:21 ons Review of Systems ROS Statement: Those systems with pertinent positive or pertinent negative responses have been documented in the HPI. ROS Other: All systems not noted in ROS Statement are negative. Past Medical History Past Medical History: Asthma, CVA/TIA, GERD/Reflux, Hyperlipidemia, Hypertension, Osteoarthritis (OA) Additional Past Medical History / Comment(s): Hx CVA 12/2018, memory problems since, forgetful. Back pain and left shoulder pain. Hx Meningitis as an . Varicose vein on left testicle. Nodules on lungs, Dr is watching. History of Any Multi-Drug Resistant Organisms: None Reported Past Surgical History: Heart Catheterization, Orthopedic Surgery Additional Past Surgical History / Comment(s): (No stents) Left thumb surgery. left rotator cuff surgery Past Anesthesia/Blood Transfusion Reactions: No Reported Reaction Past Psychological History: ADD/ADHD, Bipolar Smoking Status: Former smoker Past Alcohol Use History: Occasional Past Drug Use History: None Reported - Past Family History Mother Family Medical History: Cancer, Hypertension General Exam Limitations: no limitations General appearance: alert, in no apparent distress Head exam: Present: atraumatic, normocephalic, normal inspection Eye exam: Present: normal appearance, PERRL, EOMI. Absent: scleral icterus, conjunctival injection, periorbital swelling ENT exam: Present: normal exam, mucous membranes moist Neck exam: Present: normal inspection. Absent: tenderness, meningismus, lymphadenopathy Respiratory exam: Present: normal lung sounds bilaterally. Absent: respiratory distress, wheezes, rales, rhonchi, stridor Cardiovascular Exam: Present: regular rate, normal rhythm, normal heart sounds. Absent: systolic murmur, diastolic murmur, rubs, gallop, clicks GI/Abdominal exam: Present: soft, normal bowel sounds. Absent: distended, tenderness, guarding, rebound, rigid Course Vital Signs 07/01/24 19:22 Temperature 98.3 F Pulse Rate 64 Respiratory 18 Rate Blood Pressure 104/70 O2 Sat by Pulse 98 Oximetry Medical Decision Making - Medical Decision Making Was pt. sent in by a medical professional or institution (, PA, [employer], urgent care, hospital, or [facility]...) When possible be specific @ -No Did you speak to anyone other than the patient for history (EMS, parent, family, police, friend...)? What history was obtained from this source @ -No Did you review nursing and triage notes (agree or disagree)? Why? @ -I reviewed and agree with nursing and triage notes Were old charts reviewed (outside hosp., previous admission, EMS record, old EKG, old radiological studies, urgent care reports/EKG's, [facility] records)? Report findings @ -No old charts were reviewed Differential Diagnosis (chest pain, altered mental status, abdominal pain women, abdominal pain men, vaginal bleeding, weakness, fever, dyspnea, syncope, headache, dizziness, GI bleed, back pain, seizure, CVA, palpatations, mental health, musculoskeletal)? @ -COVID 19, RSV, influenza, pneumonia, acute bronchitis, URI, this list is not all inclusive EKG interpreted by me (3pts min.). @ -None X-rays interpreted by me (1pt min.). @ -None done CT interpreted by me (1pt min.). @ -None done U/S interpreted by me (1pt. min.). @ -None done What testing was considered but not performed or refused? (CT, X-rays, U/S, labs)? Why? @ -None What meds were considered but not given or refused? Why? @ -None Did you discuss the management of the patient with other professionals (professionals i.e. , PA, [employer], lab, RT, psych nurse, social sciences professor, cosmetic sales, teacher, driver license reviewing officer, home health care case manager)? Give summary @ -No Was smoking cessation discussed for >3mins.? @ -No Was critical care preformed (if so, how long)? @ -No Were there social determinants of health that impacted care today? How? (Homelessness, low income, unemployed, alcoholism, drug addiction, transportation, low edu. Level, literacy, decrease access to med. care, detention, rehab)? @ -No Was there de-escalation of care discussed even if they declined (Discuss DNR or withdrawal of care, Hospice)? DNR status @ -No What co-morbidities impacted this encounter? (DM, HTN, Smoking, COPD, CAD, Cancer, CVA, ARF, Chemo, Hep., AIDS, mental health diagnosis, sleep apnea, morbid obesity)? @ -None Was patient admitted / discharged? Hospital course, mention meds given and route, prescriptions, significant lab abnormalities, going to OR and other pertinent info. @Discharge patient is influenza A positive. Symptoms been present for 3 days. Undiagnosed new problem with uncertain prognosis? @ -No Drug Therapy requiring intensive monitoring for toxicity (Heparin, Nitro, Insulin, Cardizem)? @ -No Were any procedures done? @ -No Diagnosis/symptom? @ -Influenza A Acute, or Chronic, or Acute on Chronic? @ -Acute Uncomplicated (without systemic symptoms) or Complicated (systemic symptoms)? @ -Uncomplicated Side effects of treatment? @ -No Exacerbation, Progression, or Severe Exacerbation? @ -No Poses a threat to life or bodily function? How? (Chest pain, [place], [place], pneumonia, PE, COPD, DKA, ARF, appy, cholecystitis, CVA, Diverticulitis, Homicidal, Suicidal, threat to staff... and all critical care pts) @ -No - Lab Data Lab Results 07/01/24 Range/Units 19:44 Influenza Type A (PCR) Detected A (Not Detectd) Influenza Type B (PCR) Not Detected (Not Detectd) RSV (PCR) Not Detected (Not Detectd) SARS-CoV-2 (PCR) Not Detected (Not Detectd) Disposition Clinical Impression: Influenza A Disposition: HOME SELF-CARE Condition: Stable Instructions (If sedation given, give patient instructions): Influenza (ED) Additional Instructions: Please return to the Emergency Department if symptoms worsen or any other concerns. Is patient prescribed a controlled substance at d/c from ED?: No Referrals: Wiliam Estrada MD [Primary Care Provider] - 1-2 days Time of Disposition: 20:43
[2024-07-01 20:37] LABS: Influenza A Detected (Not Detectd); Influenza B Not Detected (Not Detectd); RSV Not Detected (Not Detectd)
[2024-07-01 20:57] VITALS: BP 113/79; PULSE 88; TEMP 98.4
== END 2024-07-01 20:57 | disposition home or self-care (01) ==
LOC: EC 18:57
DX: J10.1 Influenza due to other identified influenza virus with other respiratory manifestations (principal); Z88.1 Allergy status to other antibiotic agents; Z88.0 Allergy status to penicillin; Z88.2 Allergy status to sulfonamides; Z88.5 Allergy status to narcotic agent; Z87.891 Personal history of nicotine dependence
CPT/HCPCS: 87636; 99283